=== PATIENT | female | born 1955 | race Hispanic/Latino ===

== ENCOUNTER 2017-12-24 16:21 | Inpatient (IN) | payer OTHER ==
[2017-12-24 19:21] LABS: Urine Amorphous Sediment 1+ /HPF (NONE SEEN); Urine Bacteria >50 /HPF (<20); Urine Coarse Granular Casts 0-5 /LPF (NONE SEEN); Urine Culture Reflex Order REFLEXED
[2017-12-24] MEDS ORDERED: ACETAMINOPHEN 500 MG TAB ONE (19:21)
[2017-12-24] MEDS ORDERED: MECLIZINE HCL 12.5 MG TAB ONE (19:21)
[2017-12-24] MEDS ORDERED: NA CHLORIDE 0.9% 1,000 ML ONE (19:21)
[2017-12-24 19:22] LABS: Urine Blood 3+ (NEG); Urine Glucose TRACE (NEG); Urine Protein 3+ (NEG); Urine Specific Gravity 1.025 (1.005-1.030)
[2017-12-24] MEDS ORDERED: CEFTRIAXONE/SWI 1gm 1 GM/10 ML SYR ONE (19:22)
[2017-12-24 19:34] LABS: Absolute Lymphocytes (CBC) 1.9 K/uL (0.7-4.9); Absolute Neutrophil 6.7 K/uL (1.8-8.0); Basophils % 0.5 % (0-1.3); Eosinophils % 0.5 % (0-4.4); Hematocrit 32.7 % (36.0-45.0); Lymphocytes % 19.2 % (15.3-44.8); MCH 32.1 pg (27.0-35.0); MCV 91.3 fL (80-100); MPV 7.8 fL (7.6-11.3); RBC Red Blood Cell Count 3.58 M/uL (3.86-4.86)
[2017-12-24 19:41] LABS: Potassium 3.7 mEq/L (3.6-5.0)
[2017-12-24 19:48] LABS: Albumin 3.9 g/dL (3.2-5.5); Bilirubin Direct 0.5 mg/dL (0-0.2); Bilirubin Total 3.2 mg/dL (0.3-1.2); Protein, Total 7.5 g/dL (6.0-8.3)
[2017-12-24 20:07] LABS: Platelet Estimate DECR; Urine White Blood Cell Casts OK
[2017-12-24 20:08] LABS: Blood Morphology Comment NOT SEEN (NOT SEEN)
[2017-12-24 20:21] LABS: Thyroid Stimulating Hormone 1.18 uIU/mL (0.34-5.60)
--- NOTE | 2017-12-24 20:33 | RAD REPORT ---
EXAM DESCRIPTION: CT - Head Brain Wo Cont - 12/24/2017 8:22 pm CLINICAL HISTORY: Progressive dizziness, congestion, headache, thrombocytopenia COMPARISON: None. TECHNIQUE: Axial 5 mm thick images of the head were obtained without IV contrast. All CT scans are performed using dose optimization technique as appropriate and may include automated exposure control or mA/KV adjustment according to patient size. FINDINGS: No intracranial hemorrhage is present. There is no mass effect, edema or shift of midline structures. No acute cortical based infarction. Mild atrophy and chronic ischemic changes are present . Vascular and physiologic calcifications are present. No abnormal extra-axial fluid collections. Preet tricles are in proportion to any volume loss. Mastoid air cells and visualized portions of the paranasal sinuses are clear. No acute bony findings. IMPRESSION: No hemorrhage or acute intracranial finding. Mild atrophy chronic ischemic change.
--- NOTE | 2017-12-24 23:56 | EDPHYS ---
Physician Documentation [facility] Name: Selina Toussaint Age: 62 yrs Sex: Female : 1955 Arrival Date: 12/24/2017 Time: 16:22 Bed 16 Private MD: ED Physician Jayden Callejas HPI: 12/24 19:56 This 62 yrs old Female presents to ER via Wheelchair with complaints of snw Dizziness, Fever. 19:56 The patient presents with lightheadedness. Onset: The symptoms/episode began/occurred snw suddenly, this morning. Context: occurred at home, occurred while the patient was getting up from bed, just prior to the episode the patient experienced no apparent symptoms. Modifying factors: The symptoms are alleviated by nothing. Associated signs and symptoms: Pertinent positives: fever. Severity of symptoms: At their worst the symptoms were moderate. Patient's baseline: Neuro: alert and fully oriented. It is unknown whether or not the patient has had similar symptoms in the past. The patient has not recently seen a physician. Historical: - Allergies: 16:39 Vicodin; aj - Home Meds: 16:39 Aspirin Oral [Active]; atorvastatin Oral [Active]; Glimepiride Oral [Active]; aj lisinopril Oral [Active]; Meclizine Oral [Active]; Metformin Oral [Active]; Simvastatin Oral [Active]; - PMHx: 16:39 Diabetes - NIDDM; Hypertension; vertigo; Hyperlipidemia; aj - PSHx: 16:39 left arm; carotid artery; aj - Immunization history:: Adult Immunizations up to date. - Social history:: Smoking status: Patient uses tobacco products, smokes one-half pack cigarettes per day. ROS: 19:55 Constitutional: Negative for chills, and weight loss, + fever Eyes: Negative for snw injury, pain, redness, and discharge, ENT: Negative for injury, pain, and discharge, Neck: Negative for injury, pain, and swelling, Cardiovascular: Negative for chest pain, palpitations, and edema, Respiratory: Negative for shortness of breath, cough, wheezing, and pleuritic chest pain, Abdomen/GI: Negative for abdominal pain, nausea, vomiting, diarrhea, and constipation, Back: Negative for injury and pain, : Negative for injury, bleeding, discharge, and swelling, MS/Extremity: Negative for injury and deformity, Skin: Negative for injury, rash, and discoloration. 19:55 Neuro: Positive for dizziness. Exam: 19:54 Constitutional: This is a well developed, well nourished patient who is awake, alert, snw and in no acute distress. Head/Face: Normocephalic, atraumatic. 19:54 ENT: Nares patent. No nasal discharge, no septal abnormalities noted. Tympanic membranes are normal and external auditory canals are clear. Oropharynx with no redness, swelling, or masses, exudates, or evidence of obstruction, uvula midline. Mucous membranes moist. Neck: Trachea midline, no thyromegaly or masses palpated, and no cervical lymphadenopathy. Supple, full range of motion without nuchal rigidity, or vertebral point tenderness. No Meningismus. Chest/axilla: Normal chest wall appearance and motion. Nontender with no deformity. No lesions are appreciated. Cardiovascular: Regular rate and rhythm with a normal S1 and S2. No gallops, murmurs, or rubs. Normal PMI, no JVD. No pulse deficits. Respiratory: Lungs have equal breath sounds bilaterally, clear to auscultation and percussion. No rales, rhonchi or wheezes noted. No increased work of breathing, no retractions or nasal flaring. Abdomen/GI: Soft, non-tender, with normal bowel sounds. No distension or tympany. No guarding or rebound. No evidence of tenderness throughout. Back: No spinal tenderness. No costovertebral tenderness. Full range of motion. MS/ Extremity: Pulses equal, no cyanosis. Neurovascular intact. Full, normal range of motion. 19:54 Eyes: Sclera: icterus, is present. 19:54 Skin: Appearance: Color: pale, Temperature: normal temperature. 19:54 Neuro: Orientation: is normal, Mentation: is normal, Memory: is normal, Motor: is normal, Gait: is unsteady, seizure activity, is not displayed by the patient. Vital Signs: 16:39 BP 130 / 67; Pulse 110; Resp 20; Temp 97.8; Pulse Ox 98% on R/A; Weight 54.43 kg; aj Height 5 ft. 1 in. (154.94 cm); Pain 9/10; 19:17 BP 156 / 71; Pulse 85; Resp 16; Temp 100.8(O); Pulse Ox 99% on R/A; Pain 6/10; ao 21:45 BP 138 / 72; Pulse 78; Resp 15; Pulse Ox 98% on R/A; ao 23:23 BP 146 / 68; Pulse 89; Resp 16; Pulse Ox 96% on R/A; Pain 0/10; ao 12/25 00:39 BP 124 / 67; Pulse 76; Resp 16; Temp 99.4(O); Pulse Ox 100% ; Pain 0/10; ao 12/24 16:39 Body Mass Index 22.67 (54.43 kg, 154.94 cm) aj MDM: 12/24 17:37 Patient medically screened. snw 20:30 Physician consultation: Keely Law MD was called at 20:30, was contacted at 20:30, snw regarding admission, would like consultation with Hematology (Dr. Bedolla). 20:47 Data reviewed: vital signs, nurses notes. Data interpreted: Pulse oximetry: on room air snw is 99 %. Interpretation: normal. Counseling: I had a detailed discussion with the patient and/or guardian regarding: the historical points, exam findings, and any diagnostic results supporting the discharge/admit diagnosis, the presence of at least one elevated blood pressure reading (>120/80) during this emergency department visit, lab results, radiology results, the need for further work-up and treatment in the hospital. 22:55 Physician consultation: Elizabeth Carvalho MD was called at 22:56, was contacted at snw 22:56, regarding consult, patient's condition, would like medications started, Antibiotics (given in ED), repeat CBC in am. If decrease in platelets will start pt on steroids.. ED course: Pt CT returned. Feeling better. No new complaints. . 22:57 Physician consultation: Keely Law MD was called at 22:57, was contacted at 22:57, snw and will see patient in ED, shortly. 12/24 17:17 Order name: Urine Culture sn 12/24 17:17 Order name: Urine Microscopic Only; Complete Time: 19:27 snw 12/24 18:34 Order name: CBC with Diff snw 12/24 18:34 Order name: Chem 7; Complete Time: 20:23 snw 12/24 18:34 Order name: TS snw 12/24 18:34 Order name: TSH; Complete Time: 20:23 snw 12/24 18:34 Order name: LFT's; Complete Time: 20:23 snw 12/24 18:34 Order name: Procalcitonin; Complete Time: 20:16 snw 12/24 18:34 Order name: Blood Culture Adult (2) snw 12/24 18:34 Order name: AMMONIA; Complete Time: 19:48 snw 12/24 18:35 Order name: CBC with Automated Diff; Complete Time: 20:16 EDMS 12/24 18:36 Order name: Urine Dipstick--Ancillary (enter results); Complete Time: 19:27 mw2 12/24 20:04 Order name: CT Head Brain wo Cont; Complete Time: 20:46 snw 12/24 20:05 Order name: CBC Smear Scan; Complete Time: 20:16 EDMS 12/24 17:17 Order name: Urine Dipstick-Ancillary (obtain specimen); Complete Time: 19:02 snw 12/24 17:18 Order name: FSBS; Complete Time: 18:33 snw 12/24 20:04 Order name: CT Abd/Pelvis - W/Contrast snw Administered Medications: 19:29 Drug: NS 0.9% 1000 ml Route: IV; Rate: 1 bolus; Site: right antecubital; ao 21:00 Follow up: IV Status: Completed infusion; IV Intake: 1000ml ao 19:29 Drug: Meclizine 50 mg Route: PO; ao 21:00 Follow up: Response: No adverse reaction ao 19:29 Drug: Tylenol 500 mg Route: PO; ao 22:00 Follow up: Response: No adverse reaction; Temperature is decreased ao 20:44 Drug: Rocephin 1 grams Route: IV; Rate: calculated rate; Site: left antecubital; ao 12/25 04:31 Follow up: IV Status: Completed infusion; IV Intake: 10ml ao Point of Care Testing: Blood Glucose: 12/24 18:05 Blood Glucose: 204 mg/dL; dh3 Ranges: Critical Glucose Levels:Adult <50 mg/dl or >400 mg/dl <40 mg/dl or >180 mg/dl Disposition: 12/25 15:39 Co-signature as Attending Physician, Jayden Callejas MD I agree with the assessment and wa plan of care. Disposition: 12/24/17 23:55 Hospitalization ordered by Keely Law for Inpatient Admission. Preliminary diagnosis are Urinary tract infection, site not specified, Thrombocytopenia, unspecified. - Bed requested for Telemetry/MedSurg (Inpatient). - Status is Inpatient Admission. ao - Condition is Stable. - Problem is an acute exacerbation. - Symptoms are unchanged. UTI on Admission? Yes Signatures: Dispatcher [employer] EDMS Emma Gayle RN RN mw Myers, Amanda, RN RN aj Therrien, Shelly, WIRE TWISTING MACHINE OPERATOR-C WIRE TWISTING MACHINE OPERATOR-Csnw Sarmad Saenz RN RN ao AppiahJayden MD MD wa
--- NOTE | 2017-12-24 23:56 | ER ---
Nurse's Notes [facility] Name: Selina Toussaint Age: 62 yrs Sex: Female : 1955 Arrival Date: 12/24/2017 Time: 16:22 Bed 16 Private MD: Diagnosis: Urinary tract infection, site not specified;Thrombocytopenia, unspecified Presentation: 12/24 16:36 Presenting complaint: Patient states: Reports dizziness that started this morning upon aj waking and is worse when standing, with nasal congestion and sore throat. Patient also reports that her "sciatic" pain is still bothering her and she would like that addressed. Transition of care: patient was not received from another setting of care. Onset of symptoms was December 23, 2017. Care prior to arrival: None. 16:36 Method Of Arrival: Wheelchair aj 16:36 Acuity: TAYE 4 aj Triage Assessment: 16:39 General: Appears in no apparent distress. comfortable, Behavior is calm, cooperative, aj appropriate for age. Pain: Complains of pain in coccyx, left lower back and right lower back Pain currently is 9 out of 10 on a pain scale. Neuro: Level of Consciousness is awake, alert, obeys commands, Oriented to person, place, time, situation, Reports dizziness. Respiratory: Airway is patent Respiratory effort is even, unlabored, Respiratory pattern is regular, symmetrical. Derm: Skin is intact, is healthy with good turgor, Skin is pink, warm \\T\\ dry. normal. Historical: - Allergies: 16:39 Vicodin; aj - Home Meds: 16:39 Aspirin Oral [Active]; atorvastatin Oral [Active]; Glimepiride Oral [Active]; aj lisinopril Oral [Active]; Meclizine Oral [Active]; Metformin Oral [Active]; Simvastatin Oral [Active]; - PMHx: 16:39 Diabetes - NIDDM; Hypertension; vertigo; Hyperlipidemia; aj - PSHx: 16:39 left arm; carotid artery; aj - Immunization history:: Adult Immunizations up to date. - Social history:: Smoking status: Patient uses tobacco products, smokes one-half pack cigarettes per day. Screenin:33 Abuse screen: Denies threats or abuse. Denies injuries from another. Nutritional sv screening: No deficits noted. Tuberculosis screening: No symptoms or risk factors identified. Fall Risk None identified. Assessment: 18:20 General: Appears in no apparent distress. comfortable, Behavior is calm, cooperative, sv appropriate for age. General: Reports fever. Pain: Denies pain. Neuro: Level of Consciousness is awake, alert, obeys commands, Oriented to person, place, time, situation, Moves all extremities. Full function. Neuro: Reports dizziness. Respiratory: Respiratory effort is even, unlabored, Respiratory pattern is regular, symmetrical. Derm: Skin is normal. 19:12 General: Appears in no apparent distress. comfortable, Behavior is calm, cooperative, ao appropriate for age. Pain: Complains of pain in buttocks Pain currently is 6 out of 10 on a pain scale. Neuro: Level of Consciousness is awake, alert, obeys commands, Oriented to person, place, time, situation, Appropriate for age. Cardiovascular: Heart tones S1 S2. Respiratory: Airway is patent Respiratory effort is even, unlabored, Respiratory pattern is regular, symmetrical. GI: Abdomen is non-distended, Bowel sounds present X 4 quads. : No signs and/or symptoms were reported regarding the genitourinary system. EENT: No signs and/or symptoms were reported regarding the EENT system. Derm: Skin is intact, Skin temperature is warm. Musculoskeletal: Range of motion:. 20:44 Reassessment: Patient appears in no apparent distress at this time. Patient and/or ao family updated on plan of care and expected duration. Pain level reassessed. Patient is alert, oriented x 3, equal unlabored respirations, skin warm/dry/pink. 21:13 Reassessment: Patient done with contrast at 2043. CT has been notified. ao 21:45 Reassessment: Patient appears in no apparent distress at this time. Patient and/or ao family updated on plan of care and expected duration. Pain level reassessed. Patient is alert, oriented x 3, equal unlabored respirations, skin warm/dry/pink. 23:23 Reassessment: Patient appears in no apparent distress at this time. Patient and/or ao family updated on plan of care and expected duration. Pain level reassessed. Patient is alert, oriented x 3, equal unlabored respirations, skin warm/dry/pink. Waiting on Dr Law to see patient and for patient to get admitted to the hospital as requested by SIMBA Barboza. Vital Signs: 16:39 BP 130 / 67; Pulse 110; Resp 20; Temp 97.8; Pulse Ox 98% on R/A; Weight 54.43 kg; aj Height 5 ft. 1 in. (154.94 cm); Pain 9/10; 19:17 BP 156 / 71; Pulse 85; Resp 16; Temp 100.8(O); Pulse Ox 99% on R/A; Pain 6/10; ao 21:45 BP 138 / 72; Pulse 78; Resp 15; Pulse Ox 98% on R/A; ao 23:23 BP 146 / 68; Pulse 89; Resp 16; Pulse Ox 96% on R/A; Pain 0/10; ao 12/25 00:39 BP 124 / 67; Pulse 76; Resp 16; Temp 99.4(O); Pulse Ox 100% ; Pain 0/10; ao 12/24 16:39 Body Mass Index 22.67 (54.43 kg, 154.94 cm) aj ED Course: 12/24 16:22 Patient arrived in ED. as 16:38 Triage completed. aj 16:39 Arm band placed on left wrist. Patient placed in waiting room, Patient notified of wait aj time. 17:17 Zulema Barboza FNP-C is PHCP. snw 17:17 Jayden Callejas MD is Attending Physician. snw 17:40 Rosa Garcia, RN is Primary Nurse. sv 18:33 Patient has correct armband on for positive identification. Bed in low position. Adult sv w/ patient. Door closed. Head of bed elevated. 19:09 Initial lab(s) drawn, by hi, sent to lab. First set of blood cultures drawn by hi, T\\T\\S dh3 collected, blood band applied to patient. Inserted saline lock: 22 gauge in right antecubital area, using aseptic technique. Blood collected. 19:13 Report given to Sarmad GARCIA. sv 19:16 Primary Nurse role handed off by Rosa Garcia RN sv 19:28 Sarmad Saenz, RN is Primary Nurse. ao 20:07 Notified Nurse Practitioner and/or Physician Slasher Runner of a critical lab result(s), lp1 Platelets 14. 20:22 CT Head Brain wo Cont In Process Unspecified. EDMS 21:[address] vm2 22:13 CT Abd/Pelvis - W/Contrast In Process Unspecified. EDMS 22:13 CT completed. Patient tolerated procedure well. Patient moved back from CT. 2 23:54 Keely Law MD is Hospitalizing Provider. snw 12/25 00:44 No provider procedures requiring assistance completed. Patient admitted, IV remains in ao place. Administered Medications: 12/24 19:29 Drug: NS 0.9% 1000 ml Route: IV; Rate: 1 bolus; Site: right antecubital; ao 21:00 Follow up: IV Status: Completed infusion; IV Intake: 1000ml ao 19: Drug: Meclizine 50 mg Route: PO; ao 21:00 Follow up: Response: No adverse reaction ao 19: Drug: Tylenol 500 mg Route: PO; ao 22:00 Follow up: Response: No adverse reaction; Temperature is decreased ao 20:44 Drug: Rocephin 1 grams Route: IV; Rate: calculated rate; Site: left antecubital; ao 12/25 04:31 Follow up: IV Status: Completed infusion; IV Intake: 10ml ao Point of Care Testing: Blood Glucose: 12/24 18:05 Blood Glucose: 204 mg/dL; dh3 Ranges: Intake: 21:00 IV: 1000ml; Total: 1000ml. ao 12/25 04:31 IV: 10ml; Total: 1010ml. ao Outcome: 12/24 23:55 Decision to Hospitalize by Provider. snw 12/25 00:45 Condition: stable ao Instructed on the need for admit. 01:03 Admitted to Tele accompanied by tech, room 419, Report called to RADHA Hale ao 01:06 Patient left the ED. ao Signatures: Dispatcher [employer] EDID Rosa Garcia RN Lorena Rivera RN Zulema Leigh, CERTIFIED REAL ESTATE APPRAISER-C CERTIFIED REAL ESTATE APPRAISER-Shahbazw Vianey Ely Laura, RN RN lp1 Ortiz, Alex RN Harleen Mims [facility] Nora Hoffman 3
[2017-12-25] MEDS ORDERED: MORPHINE 2 MG/ML SYR IV PRN (00:09)
[2017-12-25] MEDS ORDERED: ONDANSETRON 4 MG/2 ML VIAL IV PRN (00:09)
[2017-12-25] MEDS ORDERED: ACETAMINOPHEN 500 MG TAB PO PRN (00:09)
[2017-12-25] MEDS ORDERED: MECLIZINE HCL 12.5 MG TAB PO PRN (00:12)
[2017-12-25] MEDS: NA CHLORIDE 0.9% 1,000 ML IV SCH ×3 (01:00→20:07)
[2017-12-25 01:20] VITALS: O2SAT 100
[2017-12-25 01:26] VITALS: BMI 22.6
[2017-12-25 03:14] LABS: Absolute Lymphocytes (CBC) 1.4 K/uL (0.7-4.9); Absolute Monocytes 0.8 K/uL (0.1-1.3); Absolute Neutrophil 5.6 K/uL (1.8-8.0); Basophils % 0.7 % (0-1.3); Eosinophils % 0.4 % (0-4.4); Hematocrit 31.9 % (36.0-45.0); Lymphocytes % 17.5 % (15.3-44.8); MCH 31.4 pg (27.0-35.0); MCV 91.1 fL (80-100); MPV 12.6 fL (7.6-11.3); Monocytes % 9.9 % (3.3-12.3)
[2017-12-25 03:50] LABS: Blood Morphology Comment NOT SEEN (NOT SEEN); Platelet Estimate DECR; Urine White Blood Cell Casts OK
[2017-12-25] MEDS: GUAIFENESIN/CODEINE 5ML UCUP PO PRN (03:54)
[2017-12-25] MEDS: METHYLPREDNISOLONE 125 MG INJ IV SCH ×2 (05:05→11:58)
--- NOTE | 2017-12-25 06:29 | P.HP ---
Certification for Inpatient Patient admitted to: Inpatient With expected LOS: >2 Midnights Patient will require the following post-hospital care: None Practitioner: I am a practitioner with admitting privileges, knowledge of patient current condition, hospital course, and medical plan of care. Services: Services provided to patient in accordance with Admission requirements found in Title 42 Section 412.3 of the Code of Federal Regulations Patient History Date of Service: 12/24/17 Reason for admission: ITP/UTI History of Present Illness: Patient is a 62yo who was admitted to the hospital with dizziness and urinary tract infection. Patient has also been having some generalized weakness. Patient came into the ER for evaluation. In the emergency room patient had a CT of her head which was negative. She also had a CT of her chest abdomen and pelvis which revealed perinephric stranding. Spoke with Hematology and they recommended antibiotic therapy initially. Will recheck platelet count in the morning and reassess at that time. Patient was seen a few years ago in the hospital by Dr. Kennedy. 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 Patient was started on steroids. Patient never followed up as an outpatient. She denies having any bleeding issues. She denies any petechial rashes. She will be admitted for further evaluation. Allergies hydrocodone bitartrate [From Vicodin] Allergy (Verified 12/25/17 03:50) ants crawling on her Home Medications: Aspirin [Aspirin EC 81 MG] 81 mg PO DAILY 07/17/17 Atorvastatin Calcium [Lipitor*] 10 mg PO DAILY #30 tab 07/18/17 Lisinopril [Prinivil*] 5 mg PO DAILY #30 tab 07/18/17 Meclizine HCl [Antivert*] 25 mg PO Q6H PRN #30 tab 07/18/17 Glimepiride 2 mg PO DAILY 12/25/17 Metformin HCl [Glucophage*] 1,000 mg PO BID 12/25/17 - Past Medical/Surgical History Has patient received pneumonia vaccine in the past: No Diabetic: Yes -: HTN -: NIDDM -: CVA with right-sided residual weakness -: Carotid artery disease status post endarterectomy -: Hyperlipidemia -: Vertigo -: left arm surgery -: Left CEA - Family History Father Medical History: Heart disease Sister Medical History: Heart disease Brother Medical History: Heart disease Mother Medical History: Heart disease, Diabetes - Social History Smoking Status: Light Tobacco smoker (1-9 cigarettes/day) Alcohol use: Yes CD- Drugs: No Caffeine use: Yes Place of Residence: Home Review of Systems 10-point ROS is otherwise unremarkable Physical Examination - Vital Signs Temperature: 98.6 F Blood Pressure: 168/73 Pulse: 94 Respirations: 20 Pulse Ox (%): 98 - Physical Exam General: Alert, In no apparent distress, Oriented x3 HEENT: Atraumatic, PERRLA, Mucous membr. moist/pink, EOMI, Sclerae nonicteric Neck: Supple, 2+ carotid pulse no bruit, No LAD, Without JVD or thyroid abnormality Respiratory: Clear to auscultation bilaterally, Normal air movement Cardiovascular: Regular rate/rhythm, Normal S1 S2, No murmurs Gastrointestinal: Normal bowel sounds, Soft and benign, Non-distended, No tenderness Musculoskeletal: No clubbing, No swelling, No tenderness Integumentary: No rashes Neurological: Normal speech, Normal tone, Sensation intact, Cranial nerves 3-12 intact, Normal affect, Abnormal gait, Abnormal strength Lymphatics: No axilla or inguinal lymphadenopathy - Studies Laboratory Data (last 24 hrs) 12/24/17 19:10: Sodium 129 L, Potassium 3.7, BUN 23 H, Creatinine 0.96, Glucose 198 H, Total Bilirubin 3.2 H, AST 42, ALT 20, Alkaline Phosphatase 87 12/24/17 19:10: WBC 9.6, Hgb 11.5 L, Hct 32.7 L, Plt Count 14 L* Assessment & Plan - Problems (Diagnosis) (1) Thrombocytopenia Current Visit: Yes Status: Acute (2) Pyelonephritis Current Visit: Yes Status: Acute (3) Vertigo Current Visit: Yes Status: Acute - Plan Plan: 1. Hematology recommended starting IV antibiotics and rechecking platelet count. If platelet count decreases in the morning, I will go ahead and initiate IV steroids. Patient with no signs of bleeding and only noticed 1-2 petechiae lesions. At this time, patient has no bleeding and hemoglobin is stable, so no need for transfusion. Will continue to monitor along with platelet count. Hold all anti-platelet agents and also will hold NSAIDs. 2. Urology consultation for questionable pyelonephritis. Continue with antibiotics. 3. Meclizine for her vertigo. If it does not improve-ENT/neurology consultation 4. GI and DVT prophylaxis Discharge Plan: Home Plan to discharge in: Greater than 2 days - Advance Directives Does patient have a Living Will: No Does patient have a Durable POA for Healthcare: No - Code Status/Comfort Care Code Status Assessed: Yes Code Status: Full Code Critical Care: No Time Spent Managing PTS Care (In Minutes): 50
[2017-12-25] MEDS ORDERED: D50W 25 GM/50 ML SYRINGE IV PRN ×2 (07:13→21:50)
[2017-12-25] MEDS ORDERED: GLUCAGON 1 MG/VIAL IM PRN ×2 (07:13→21:50)
[2017-12-25 07:15] LABS: Absolute Lymphocytes (CBC) 0.9 K/uL (0.7-4.9); Absolute Monocytes 0.4 K/uL (0.1-1.3); Basophils % 0.6 % (0-1.3); Eosinophils % 0.4 % (0-4.4); Hematocrit 30.1 % (36.0-45.0); Lymphocytes % 12.2 % (15.3-44.8); MCH 31.5 pg (27.0-35.0); MCV 91.3 fL (80-100); MPV 10.9 fL (7.6-11.3)
[2017-12-25] MEDS ORDERED: MORPHINE 4 MG/ML SYR IV PRN (07:45)
[2017-12-25 07:56] LABS: Albumin 3.1 g/dL (3.2-5.5); Potassium 3.9 mEq/L (3.6-5.0); Protein, Total 6.1 g/dL (6.0-8.3)
[2017-12-25] MEDS ORDERED: PNEUMOCOCCAL VACCINE 0.5 ML IMVAC ONE (08:00)
--- NOTE | 2017-12-25 08:09 | RAD REPORT ---
EXAM DESCRIPTION: CT - Abdomen Pelvis W Contrast - 12/25/2017 6:40 am CLINICAL HISTORY: Abdominal pain. A preliminary written report was provided at the time of the study, and the report was reviewed prio r to final dictation. COMPARISON: CT January 2014 TECHNIQUE: Biphasic, helical CT imaging of the abdomen and pelvis was performed following 100 ml non -ionic IV contrast. Oral contrast was given. All CT scans are performed using dose optimization technique as appropriate and may include automated exposure control or mA/KV adjustment according to patient size. FINDINGS: No acute lung base finding. Patient has a small pericardial effusion that has improved sig nificantly from 2014. The liver, spleen, and pancreas show no suspicious findings. Liver attenuation is borderline fatty in filtrated. No gallbladder or biliary tree acute finding. Gallstones can be occult. Symmetric renal function is seen with no hydronephrosis or suspicious renal mass. No pyelonephritis f indings. There is no delayed or asymmetric renal function. Patient has significant perinephric strand ing. This is a symmetric pattern but is new from 2014. In the absence of any focal lung parenchymal p rocess or asymmetric function this is not likely clinically significant. Partially filled urinary jose roberto dder shows no wall thickening, mass or enhancement. No stomach or small bowel acute finding. Retrocecal appendix shows no acute finding. Trace amount of stranding seen near the appendix is similar to the prior study. Active process not suspected. No free air, free fluid or pneumatosis. No focal inflammatory stranding identifiable. No hernia, mas s or bulky lymphadenopathy. No adrenal abnormality. Approximately 12 millimeter left periaortic lymp h node has not change from 2014. Disc and bony degenerative changes are present. No acute or pathologic bone process seen. Remodeling at the right sacral ala present presumably from old trauma. This is similar to 2014. Advanced lower l umbar facet joint degenerative changes are present. Patient has atherosclerotic calcifications withou t acute vascular finding. IMPRESSION: No obstruction, free air or surgically emergent finding. No acute GI process seen. No gallbladder or biliary tree process seen. Patient has a significant perinephric stranding pattern. This is probably normal for the patient. The re is no pyelonephritis, hydronephrosis, asymmetric function or other acute finding.
--- NOTE | 2017-12-25 08:31 | P.PN ---
Subjective Date of Service: 12/25/17 Primary Care Provider: none Chief Complaint: ITP/UTI Subjective: Improving (Patient feeling better. No bleeding noted.) Physical Examination - Vital Signs Temperature: 98.6 F Blood Pressure: 168/73 Pulse: 94 Respirations: 20 Pulse Ox (%): 98 - Physical Exam General: Alert, In no apparent distress, Oriented x3, Cooperative HEENT: Atraumatic Neck: Supple Respiratory: Clear to auscultation bilaterally, Normal air movement Cardiovascular: Normal pulses, Regular rate/rhythm Gastrointestinal: Normal bowel sounds, Soft and benign, Non-distended, No tenderness, No masses, No rebound, No guarding Musculoskeletal: No erythema, No tenderness, No warmth Integumentary: No tenderness/swelling, No erythema, No warmth, No cyanosis, Other (Mild bruising to the extremities) Neurological: Normal speech, Normal strength at 5/5 x4 extr, Normal tone, Normal affect - Studies Laboratory Data (last 24 hrs) 12/24/17 19:10: Sodium 129 L, Potassium 3.7, BUN 23 H, Creatinine 0.96, Glucose 198 H, Total Bilirubin 3.2 H, AST 42, ALT 20, Alkaline Phosphatase 87 12/24/17 19:10: WBC 9.6, Hgb 11.5 L, Hct 32.7 L, Plt Count 14 L* Medications List Reviewed: Yes Assessment & Plan - Problems (Diagnosis) (1) Abnormal CT of the abdomen Current Visit: Yes Status: Acute Plan: Perinephric stranding noted on CT scan. This is likely normal for the patient. No pyelonephritis or hydronephrosis noted. Patient with UTI and thrombocytopenia. Will continue with IV antibiotic therapy. Urine culture pending. Will continue with IV fluids. Patient will receive 1 unit of platelets. Hematology consulted to address her chronic ATP. Patient on IV steroids for this. Urology consulted to evaluate the perinephric stranding. Await recommendations from both. (2) Diabetes mellitus Current Visit: Yes Status: Chronic Plan: Will check A1c. Will continue with metformin. Will provide sliding scale. Qualifiers: Diabetes mellitus type: type 2 Diabetes mellitus senior care insulin use: without senior care use Diabetes mellitus complication status: with other specified complication Qualified Code(s): E11.69 - Type 2 diabetes mellitus with other specified complication (3) Hyperlipidemia Current Visit: Yes Status: Chronic Plan: Will continue with her medication. Qualifiers: Hyperlipidemia type: unspecified Qualified Code(s): E78.5 - Hyperlipidemia , unspecified (4) Anemia Current Visit: Yes Status: Chronic Plan: This is likely from anemia of chronic disease. Will check iron and B12 studies. Will monitor closely. No active bleeding noted. Qualifiers: Anemia type: other cause Other causes of anemia: chronic disease, other Qualified Code(s): D63.8 - Anemia in other chronic diseases classified elsewhere (5) Hyponatremia Current Visit: Yes Status: Acute Plan: This is likely from hypovolemia. Will continue with IV fluids. (6) Dehydration Current Visit: Yes Status: Acute (7) Thrombocytopenia Current Visit: Yes Status: Chronic Plan: Patient has a history of ITP. This has improved with IV steroids. Will continue with IV steroids. Await recommendation from Hematology. Patient had been on steroids in the past but never followed up. Patient will likely need oral steroids at discharge. Platelet count low. This was repeated. Will provide 1 unit of platelet and recheck later today. (8) Vertigo Current Visit: Yes Status: Acute Plan: This is likely related to her UTI, hyponatremia and anemia. Will continue with above plan of care. (9) Hypertension Current Visit: No Status: Chronic Plan: Will restart home medication and adjust appropriately. Qualifiers: Hypertension type: essential hypertension Qualified Code(s): I10 - Essential (primary) hypertension (10) UTI (urinary tract infection) Current Visit: No Status: Acute Plan: Will continue with IV antibiotic therapy. Urine culture obtained. Qualifiers: Urinary tract infection type: acute cystitis Hematuria presence: without hematuria Qualified Code(s): N30.00 - Acute cystitis without hematuria (11) Chronic ITP (idiopathic thrombocytopenia) Current Visit: Yes Status: Chronic Plan: Patient with history of chronic ITP. Platelet count repeated. Will provide platelet transfusion. Hematology consulted. Patient on IV steroids. Patient will likely need steroids at discharge. Await further recommendations from hematology Discharge Plan: Home Plan to discharge in: 24 Hours Time Spent Managing Pts Care (In Minutes): 55
[2017-12-25] MEDS ORDERED: GLIMEPIRIDE 2 MG TABLET PO SCH (09:00)
[2017-12-25] MEDS ORDERED: LISINOPRIL 5 MG TAB PO SCH (09:00)
[2017-12-25] MEDS ORDERED: CEFTRIAXONE 1 GM/NS 50 ML 1 GM/50 ML BAG IV SCH (09:00)
[2017-12-25] MEDS: ATORVASTATIN 10 MG TAB PO SCH (09:17)
[2017-12-25] MEDS: ASPIRIN EC 81 MG TAB PO SCH (09:18)
[2017-12-25] MEDS: CEFTRIAXONE/SWI 1gm 1 GM/10 ML SYR IV SCH (09:19)
[2017-12-25] MEDS: INSULIN -REGULAR HUMAN 50 UNIT/0.5 ML ML SQ SCH ×5 (09:23→22:02)
[2017-12-25] MEDS: LISINOPRIL 10 MG TAB PO SCH (09:25)
[2017-12-25 09:55] LABS: A1c Component 1.07 mg/dL; Hemoglobin A1c 11.3 % (4-6.0)
[2017-12-25] MEDS ORDERED: NA CHLORIDE 0.9% 250 ML ONE (12:56)
[2017-12-25] MEDS: DEXAMETHASONE 4 MG TAB PO SCH (15:15)
[2017-12-25] MEDS: INSULIN DETEMIR 100 UNIT/1 ML INSULIN SQ SCH (17:39)
[2017-12-25] MEDS: METFORMIN HCL 500 MG TAB PO SCH (17:40)
[2017-12-25 18:41] LABS: Absolute Lymphocytes (CBC) 1.1 K/uL (0.7-4.9); Absolute Monocytes 0.2 K/uL (0.1-1.3); Absolute Neutrophil 8.1 K/uL (1.8-8.0); Basophils % 0.3 % (0-1.3); Hematocrit 29.8 % (36.0-45.0); Lymphocytes % 11.4 % (15.3-44.8); MCH 31.1 pg (27.0-35.0); MCV 91.8 fL (80-100); MPV 7.8 fL (7.6-11.3); Monocytes % 2.1 % (3.3-12.3); RBC Red Blood Cell Count 3.25 M/uL (3.86-4.86)
--- NOTE | 2017-12-25 19:11 | CON ---
History Of Present Illness: This is a pleasant 62-year-old female, who was brought into the hospital due to dizziness and urinary tract infection. She was found to be thrombocytopenic. Platelets were very low. Also found to have a UTI. Apparently, she has a history of ITP, and was given steroids, but never followed up with her roll wrapper from her last visit. Her CT scan shows some increasing perinephric stranding bilaterally with left worse than the right. The question was if this is a kidney infection or not, and I think that given the picture of UTI and fevers and tenderness in her flank region that is safest to assume most likely pyelonephritis and to treat her as such. Allergies: TO HYDROCODONE, . Home Medication: Aspirin, Lipitor, Prinivil, Antivert, glimepiride, and metformin. Past Medical History: The patient has history of diabetes, hypertension, and [id number] diabetes mellitus, CVA with right-sided residual weakness , s/p coratid artery status post endarterectomy, hyperlipidemia, vertigo , left thumb surgery, CEA. Family History: Father had heart disease. Sister had heart disease. Brother had heart disease. Mother had heart disease and diabetes. Social History: Light tobacco smoker 1 to 9 cigarettes a day. Some alcohol use. No drug use. Some caffeine use. She resides at home. Review of Systems: A 10-point review of systems otherwise unremarkable. She has no lower urinary tract symptomatology usually, just some dysuria a day or two ago. Physical Examination: Vital Signs: Latest vital signs reveal temperature 97, pulse 84, respirations 16, BP 142/63, sats 92%. General: Alert and oriented x3. HEENT: Atraumatic and normocephalic. Neck: Supple. Respiratory: Clear to auscultation bilaterally. Cardiovascular: S1 and S2. Musculoskeletal: No clubbing. Neurologic: Alert and orient x3. Lab Studies: White count 7.3, H and H is 10 and 30, platelet count is 9,000, very low. Chemistry shows sodium 138, potassium 3.9, chloride 101, carbon dioxide 23, BUN 27, creatinine 0.87, GFR 66, glucose 323, AST 52, ALT 19, alkaline phosphatase 79. UA positive for nitrate, positive for esterase. Urine culture pending. Assessment: Most likely bilateral pyelonephritis with urinary tract infection. Urine cultures pending. She has severe thrombocytopenia mostly from idiopathic thrombocytopenic purpura. She is receiving platelets transfusion, fluids, and steroids. We will continue to wait on her urine culture and treat her as a pyelonephritic, possible about 10 to 14 days of antibiotics. ROSALIA/PAMELA Voice ID: [id number] Report ID: [id number] RAKESH
[2017-12-26 05:24] LABS: Absolute Lymphocytes (CBC) 1.7 K/uL (0.7-4.9); Absolute Monocytes 0.5 K/uL (0.1-1.3); Absolute Neutrophil 10.2 K/uL (1.8-8.0); Basophils % 0.1 % (0-1.3); Hematocrit 24.9 % (36.0-45.0); Lymphocytes % 13.5 % (15.3-44.8); MCH 31.5 pg (27.0-35.0); MCV 90.8 fL (80-100); MPV 8.5 fL (7.6-11.3); Magnesium 1.9 mg/dL (1.8-2.5); Monocytes % 4.1 % (3.3-12.3); Potassium 3.5 mEq/L (3.6-5.0); RBC Red Blood Cell Count 2.74 M/uL (3.86-4.86)
[2017-12-26] MEDS: PANTOPRAZOLE 40MG TABLET PO SCH (05:41)
[2017-12-26] MEDS: NA CHLORIDE 0.9% 1,000 ML IV SCH (08:06)
[2017-12-26] MEDS: INSULIN -REGULAR HUMAN 50 UNIT/0.5 ML ML SQ SCH ×4 (08:27→21:16)
[2017-12-26] MEDS: INSULIN DETEMIR 100 UNIT/1 ML INSULIN SQ SCH ×2 (08:28→16:27)
[2017-12-26] MEDS: CEFTRIAXONE/SWI 1gm 1 GM/10 ML SYR IV SCH (08:30)
[2017-12-26] MEDS: METFORMIN HCL 500 MG TAB PO SCH ×2 (08:32→16:29)
[2017-12-26] MEDS: ATORVASTATIN 10 MG TAB PO SCH (08:32)
[2017-12-26] MEDS: LISINOPRIL 10 MG TAB PO SCH (08:32)
[2017-12-26] MEDS: ASPIRIN EC 81 MG TAB PO SCH (08:32)
[2017-12-26] MEDS: DEXAMETHASONE 4 MG TAB PO SCH (08:33)
--- NOTE | 2017-12-26 13:21 | PN ---
Subjective: The patient is looking well, doing well. Objective: Urine culture today showed mixed raphael. Assessment: Status post bile. Plan: Discontinue home on Bactrim 1 p.o. b.i.d. x14 days. Follow up p.r.nRg LINDSEY/PAMELA Voice ID: [id number] Report ID: [id number]
[2017-12-26 14:58] LABS: RBC Red Blood Cell Count 2.9 M/uL (3.86-4.86)
[2017-12-26 15:00] LABS: Albumin 3.4 g/dL (3.2-5.5); Bilirubin Direct 0.2 mg/dL (0-0.2); Bilirubin Total 1.1 mg/dL (0.3-1.2); C-Reactive Protein 94.2 mg/L (<10.0); Protein, Total 6.5 g/dL (6.0-8.3)
--- NOTE | 2017-12-26 15:26 | PN ---
Date of Progress Note: 12/26/2017 Subjective: The patient is seen and examined, chart reviewed, and case discussed with RN. The patie nt states that, she is feeling better. Review of Systems: Negative except as above. Medications: Reviewed. Physical Examination: Vital Signs: Temperature 98.2, heart rate 94, blood pressure 119/92, respirations 18, and O2 95% on room air. General: Awake, alert, oriented x3. No acute distress. Elderly female. CV: S1, S2. No murmurs. Regular rate and rhythm. Pulses present. Respiratory: Moving air well bilaterally. No wheezing. Abdomen: Soft, nontender, nondistended. Positive bowel sounds. Extremities: No clubbing, cyanosis, edema. Neurologic: Nonfocal. Laboratory Data: Sodium 137, potassium 3.5, chloride 105, CO2 26, BUN 31, creatinine 0.81, glucose 3 33, calcium 8.6, and magnesium 1.9. WBC 12.4, H and H 8.6, 24.9, and platelets 49. Assessment And Plan: A 62-year-old female with; 1.Thrombocytopenia. The patient has history of idiopathic thrombocytopenic purpura. We will contin ue with IV steroids. Dexamethasone 40 mg for 4 days. 2.Acute dehydration. Continue with IV fluids, improving. 3.Hyponatremia, improved. Continue to monitor. 4.Anemia, likely from anemia of chronic disease. We will continue to monitor H and H, transfuse as needed. 5.Hyperlipidemia, mixed. Continue home medications. 6.Diabetes mellitus type 2 without long-term use of insulin, uncontrolled. Hemoglobin A1c is greate r than 11%. The patient will need adjustments in long-term insulin. She has been started on Levemir . May need premeal as her blood sugars running in the 400s. 7.Abnormal CT scan of the abdomen. Had some perinephric stranding. No focal pyelonephritis or hydr onephrosis. The patient did have some urinary tract infection. We will continue IV antibiotics. Bl ood culture negative to date. Urology is consulted and recommends Bactrim 14 days b.i.d. 8.Urinary tract infection. Acute cystitis without hematuria. Culture shows no growth to date. Plan: Adjust long-acting insulin at premeal. Likely discharge in a.m. if blood sugar levels are imp roved and platelets continue to be above 10. The patient will need to follow up with Urology and Hem atology as outpatient. /PAMELA Voice ID: [id number] Report ID: [id number]
[2017-12-26] MEDS: INSULIN LISPRO 100 UNIT/1 ML SQ SCH (16:27)
--- NOTE | 2017-12-26 17:48 | CON ---
Date of Consultation: 12/25/2017 Reason For Consultation: Thrombocytopenia. Additional Consulting Physician: Keely Law M.D. History Of Present Illness: Ms. Toussaint is a 62-year-old lady who presented to the emergency room with complaints of fever with chills and sweats that has started the night prior to her presentation to the emergency room. She was diagnosed with urinary tract infection in the ER where it was also noted that her platelet count was 12,000. She denies any history of bleeding, bruising, or petechiae in the past days, weeks, or months. She complains of lack of appetite resulting in 8-pound weight loss and fatigue in the past 2 weeks. She gives a history of thrombocytopenia in 2013 when she was hospitalized. At that time, Dr. Kennedy, my partner, evaluated her and treated her for idiopathic thrombocytopenic purpura (ITP) with prednisone. Her platelet count responded while in the hospital and she was discharged and advised to see him and follow up with him in clinic, which she never did. She says she has had no problems with bleeding blood or required any transfusions since then. She had a platelet count done a couple of months ago which was normal at 400,000+. Review of Systems: She denies any history of chest pain, shortness of breath, or hemoptysis. She does admit to a dry cough which has been present for the past month. There is no history of chest pain or paroxysmal nocturnal dyspnea. She denies any history of nausea, vomiting, or diarrhea. Has not noticed any rectal bleeding or melena. There is no history of headaches, dizziness, diplopia, or seizures or stroke. She does have a history of diabetes mellitus type 2 for which she has not been followed regularly. She says she gets her medications from the clinic in [place]. However, blood sugar readings and A1c were elevated on admission. Home Medications: Include a baby aspirin 81 mg daily, atorvastatin 10 mg p.o. daily, lisinopril 5 mg p.o. daily, metformin 1000 mg p.o. b.i.d., and glimepiride 2 mg p.o. daily. Allergies: HYDROCODONE. Past Medical History: Significant for, 1. ITP. 2. Diabetes mellitus type 2. 3. Hypertension. 4. Hyperlipidemia. Past Surgical History: Significant for a traumatic injury to the left arm, requiring surgery and reconstruction. Social And Family History: Ms. Toussaint is single. She lives with her mother. She has no children. She is 1 of 12 siblings none of whom have thrombocytopenia. She is a nonsmoker. Does not drink alcohol. Physical Examination: General: Revealed no acute distress. General examination reveals mild pallor. No cyanosis or icterus was noted. Vital Signs: Her temperature was 97 Fahrenheit earlier today, pulse 84, respirations 16 per minute, her blood pressure has been mildly elevated at 142/ 63. She is saturating in the low 90s with no significant pain. HEENT: Examination revealed normal oral mucosa with no evidence of petechiae or bleeding. Lymph Node Survey: Revealed no palpable lymphadenopathy in the neck, axilla, or groin. Chest: Revealed bilateral vesicular breath sounds with no rales or rhonchi. Heart: Sounds revealed normal S1, S2 with no gallops or murmurs. Abdomen: Was soft, nontender. Liver and spleen were not palpable. Bowel sounds were present. Neurologic: She is alert and oriented with no acute focal deficits. Extremities: No evidence of edema or clubbing. Laboratory Data: Revealed a white count of 7800, hemoglobin was 11, and hematocrit 31.9, platelet count was 6000 at 3 a.m. this morning. She is scheduled to receive 1 unit of packed cells. Chemistries reveal significantly elevated blood sugars. BUN and creatinine were 27 and 0.87. Total bilirubin was mildly elevated at 3.0. Albumin was low at 3.1. Liver enzymes were unremarkable. Her hemoglobin A1c was 11.3. Imaging Studies: Done in the emergency room revealed a head CT which was unremarkable for any acute findings. CT abdomen and pelvis revealed no hepatosplenomegaly or focal lesions in the liver. There was significant perinephric stranding suggestive of pyelonephritis. The urinalysis in the emergency room revealed 5-10 wbc's with multiple bacteria and 3+ positive blood and positive nitrites. Assessment And Plan: Ms. Toussaint is 62-year-old who presents to the hospital for management of the urinary tract infection and was found to be severely thrombocytopenic. 1. Thrombocytopenia. Given her past history and the rate of sudden decline in her platelet count, my suspicion is that she indeed has had relapse of immune thrombocytopenic purpura(ITP) She obviously responded very well to the steroids she received in the hospital in 2013, and even though there was no followup of platelet count, she obviously did not have any clinical bleeding in the interim for years. She was started today on methylprednisone, I have switched her to dexamethasone 40 mg p.o. daily for 4 days. I believe pulse therapy may be better given her poor compliance and since chronic prednisone therapy should ideally be monitored and tapered slowly. I stressed the need for followup, we discussed the IVP can be a relapsing disease and sudden drop in platelet count could be associated with major and even fatal bleeding. She says she understands and will comply. They have added Protonix 40 mg p.o. daily and will continue on that for at least 2 weeks or as long as she needs to be off steroids. I spoke at length with Dr. Garrido as well, she may be discharged when her platelet count are more than 10, 000 on 2 consecutive days. We will follow up with her in clinic 1 week after discharge for recheck of her platelet count. 2. Anemia. She has a mild normochromic normocytic anemia, which could be due to anemia of chronic disease. Renal function stays below 70 mL/minute. Hence, this could be due to chronic renal disease as well. We will follow up on the anemia in clinic as well. Thank you for asking me to see Ms. Toussaint. Please do not hesitate to call me if you have any other questions or concerns. CALI/PAMELA Voice ID: [id number] Report ID: [id number] RAKESH
[2017-12-27 05:16] LABS: Absolute Monocytes 0.7 K/uL (0.1-1.3); Absolute Neutrophil 13.3 K/uL (1.8-8.0); Basophils % 0.2 % (0-1.3); Hematocrit 22.7 % (36.0-45.0); Lymphocytes % 12.4 % (15.3-44.8); MCH 31.5 pg (27.0-35.0); MCV 92.4 fL (80-100); MPV 11.6 fL (7.6-11.3); Monocytes % 4.1 % (3.3-12.3); RBC Red Blood Cell Count 2.46 M/uL (3.86-4.86)
[2017-12-27 05:47] LABS: BUN Blood Urea Nitrogen 25 mg/dL (6-20); Bicarbonate 25 mEq/L (21-31); Glucose Level 227 mg/dL (65-120); Magnesium 1.8 mg/dL (1.8-2.5); Potassium 3.8 mEq/L (3.6-5.0); Sodium Level 137 mEq/L (135-145)
[2017-12-27] MEDS: PANTOPRAZOLE 40MG TABLET PO SCH (05:53)
[2017-12-27] MEDS: NA CHLORIDE 0.9% 1,000 ML IV SCH (05:54)
[2017-12-27] MEDS: INSULIN -REGULAR HUMAN 50 UNIT/0.5 ML ML SQ SCH ×2 (08:10→12:13)
[2017-12-27] MEDS: INSULIN LISPRO 100 UNIT/1 ML SQ SCH ×2 (08:11→12:12)
[2017-12-27] MEDS: INSULIN DETEMIR 100 UNIT/1 ML INSULIN SQ SCH (08:11)
[2017-12-27] MEDS: METFORMIN HCL 500 MG TAB PO SCH (08:15)
[2017-12-27] MEDS: ASPIRIN EC 81 MG TAB PO SCH (08:16)
[2017-12-27] MEDS: LISINOPRIL 10 MG TAB PO SCH (08:16)
[2017-12-27] MEDS: ATORVASTATIN 10 MG TAB PO SCH (08:17)
[2017-12-27] MEDS: DEXAMETHASONE 4 MG TAB PO SCH (08:18)
[2017-12-27] MEDS: CEFTRIAXONE/SWI 1gm 1 GM/10 ML SYR IV SCH (08:24)
--- NOTE | 2017-12-27 10:22 | P.DS ---
Admission Date: 12/24/17 Discharge Date: 12/27/17 Primary Care Provider: none Disposition: ROUTINE DISCHARGE Discharge Condition: GOOD Reason for Admission: ITP/UTI Consultations: Dr. alcantara and Dr. Gold Brief History of Present Illness: Patient is 62 years of age admitted with a bow cytopenia and possible pyelonephritis Hospital Course: She was seen by the above consultants did well treated with steroids most likely idiopathic immune thrombocytopenic purpura which in addition to mild bilateral pyelonephritis as per urology patient's platelet count improved from 55-98,000 cultures negative urology advise that she go home on 2 weeks of Bactrim mildly anemic At the time of discharge patient was doing well alert oriented responsive cooperative vital signs all stable chest clear abdomen soft extremities no edema she has to go home another 2 days of Decadron 40 mg as for oncology note mildly anemic at discharge Vital Signs/Physical Exam: Temp Pulse Resp BP Pulse Ox 97.2 F 65 18 130/62 96 12/27/17 08:00 12/27/17 08:16 12/27/17 08:00 12/27/17 08:16 12/27/17 08:00 Laboratory Data at Discharge: WBC 16.0 K/uL (4.3-10.9) H D 12/27/17 04:05 Hgb 7.8 g/dL (12.0-15.0) L* 12/27/17 04:05 Hct 22.7 % (36.0-45.0) L 12/27/17 04:05 Plt Count 98 K/uL (152-406) L D 12/27/17 04:05 Sodium 137 mEq/L (135-145) 12/27/17 04:05 Potassium 3.8 mEq/L (3.6-5.0) 12/27/17 04:05 BUN 25 mg/dL (6-20) H 12/27/17 04:05 Creatinine 0.64 mg/dL (0.44-1.00) 12/27/17 04:05 Glucose 227 mg/dL (65-120) H 12/27/17 04:05 Magnesium 1.8 mg/dL (1.8-2.5) 12/27/17 04:05 Total Bilirubin 1.1 mg/dL (0.3-1.2) 12/26/17 14:09 AST 40 IU/L (10-42) 12/26/17 14:09 ALT 25 IU/L (10-60) 12/26/17 14:09 Alkaline Phosphatase 85 IU/L (42-121) 12/26/17 14:09 Home Medications: Aspirin [Aspirin EC 81 MG] 81 mg PO DAILY 07/17/17 Atorvastatin Calcium [Lipitor*] 10 mg PO DAILY #30 tab 07/18/17 Lisinopril [Prinivil*] 5 mg PO DAILY #30 tab 07/18/17 Meclizine HCl [Antivert*] 25 mg PO Q6H PRN #30 tab 07/18/17 Glimepiride 2 mg PO DAILY 12/25/17 Metformin HCl [Glucophage*] 1,000 mg PO BID 12/25/17 Sulfamethoxazole/Trimethoprim [Bactrim Ds Tablet] 1 each PO BID 14 Days #28 tablet 12/26/17 Dexamethasone [Decadron*] 40 mg PO DAILY 2 Days tab 12/27/17 New Medications: Dexamethasone [Decadron*] 40 mg PO DAILY 2 Days tab Sulfamethoxazole/Trimethoprim [Bactrim Ds Tablet] 1 each PO BID 14 Days #28 tablet Patient Discharge Instructions: Patient to follow up with Dr. jenkins Diet: ADA Activity: Ad mariluz
[2017-12-27 11:42] LABS: Hematocrit 25.2 % (36.0-45.0)
[2017-12-27 12:00] VITALS: BP 160/66; TEMP 97.9
[2017-12-27] MEDS: GUAIFENESIN/CODEINE 5ML UCUP PO PRN (12:15)
--- NOTE | 2017-12-27 13:10 | PN ---
Subjective: The patient is feeling well and ready for discharge. Laboratory Data: Her H and H have been dropping over the last few days and it was 10.1 and 29.8, today 7.8 and 22.7. Assessment: Thrombocytopenia status post platelet transfusion. Platelet count much better at 98,000, elevated originally 9_. Plan: Plan is to recheck her H and H and continue her Bactrim for 14 days for presumed pyelonephritis. ROSALIA/PAMELA Voice ID: [id number] Report ID: [id number] RAKESH
[2017-12-27 22:34] LABS: Rheumatoid Factor NEG (NEG)
[2017-12-29 11:30] LABS: HIV 1/2 Antibody Diff Not indicated.; HIV AG/AB 4TH GEN Non-reactive (Non-reactive)
[2017-12-29 20:21] LABS: HBsAG Nonreactive (Nonreactive); Hepatitis A IgM Antibody Nonreactive
== END 2017-12-27 13:49 | disposition home or self-care (01) | DRG 813 ==
LOC: ER 16:21 → ERHOLD 23:56 → 4TH 12-25 00:38
PROVIDERS: ADMIT Hospitalist; ATTEND Internal Medicine Sleep Medicine
DX: D69.3 Immune thrombocytopenic purpura (principal); N10 Acute pyelonephritis; E87.1 Hypo-osmolality and hyponatremia; N30.00 Acute cystitis without hematuria; I10 Essential (primary) hypertension; E11.9 Type 2 diabetes mellitus without complications; E78.5 Hyperlipidemia, unspecified; D69.6 Thrombocytopenia, unspecified; R42 Dizziness and giddiness; D63.1 Anemia in chronic kidney disease; E86.0 Dehydration
CPT/HCPCS: 36415; 70450; 74177; 80048; 80053; 80074; 80076; 81003; 81015; 82140; 82607; 82728; 82962; 83036; 83540; 83615; 83735; 84145; 84443; 84466; 85014; 85018; 85025; 85044; 85652; 86038; 86140; 86225; 86430; 86850; 86900; 86901; 87040; 87086; 87088; 87389; 96361; 96365; 96366; 99285; J0696; J2270; J2930; J7030; P9035; Q9967

== ENCOUNTER 2018-05-31 20:29 | Emergency (ER) | payer OTHER ==
[2018-05-31] MEDS ORDERED: MORPHINE 4 MG/ML SYR ONE (22:50)
[2018-05-31] MEDS ORDERED: ONDANSETRON 4 MG/2 ML VIAL ONE (22:50)
[2018-05-31 23:12] LABS: Absolute Lymphocytes (CBC) 3.7 K/uL (0.7-4.9); Absolute Monocytes 0.6 K/uL (0.1-1.3); Absolute Neutrophil 4.8 K/uL (1.8-8.0); Basophils % 1.1 % (0-1.3); Eosinophils % 3.3 % (0-4.4); Hematocrit 34.7 % (36.0-45.0); Lymphocytes % 38.5 % (15.3-44.8); MCH 32.7 pg (27.0-35.0); MCV 93.5 fL (80-100); MPV 8.3 fL (7.6-11.3); Monocytes % 6.3 % (3.3-12.3); RBC Red Blood Cell Count 3.71 M/uL (3.86-4.86)
[2018-05-31 23:16] LABS: Protime INR 0.93
[2018-05-31 23:28] LABS: ALT/SGPT 26 U/L (12-78); AST/SGOT 18 U/L (15-37); Albumin 3.6 g/dL (3.4-5.0); Alkaline Phosphatase 100 U/L (45-117); BUN Blood Urea Nitrogen 15 mg/dL (7-18); Bicarbonate 26 mmol/L (21-32); Bilirubin Direct 0.1 mg/dL (0-0.2); Bilirubin Total 0.4 mg/dL (0.2-1.0); CKMB Creatine Kinase MB < 1.0 ng/mL (0.3-3.6); Creatine Phosphokinase 63 U/L (26-192); Glucose Level 171 mg/dL (74-106); Magnesium 1.9 mg/dL (1.8-2.4); NT PRO-BNP 63 pg/mL (<125); Potassium 4.1 mmol/L (3.5-5.1); Sodium Level 140 mmol/L (136-145); Troponin (Emerg Dept Use Only) < 0.02 ng/mL (0.0-0.045)
--- NOTE | 2018-05-31 23:52 | ER ---
Nurse's Notes [facility] Name: Selina Toussaint Age: 63 yrs Sex: Female : 1955 Arrival Date: 05/31/2018 Time: 20:30 Bed 15 Private MD: Diagnosis: Radiculopathy, lumbar region;Sciatica, right side Presentation: 05/31 20:50 Presenting complaint: Patient states: Pain to lower back that radiates down right leg, lp1 states diagnosed here with 3 bulging discs; Appt to see pain management on Jun.16 but states pain got severe today; "I felt like my right foot got really cold". Transition of care: patient was not received from another setting of care. Onset of symptoms was May 31, 2018. Risk Assessment: Do you want to hurt yourself or someone else? Patient reports no desire to harm self or others. Initial Sepsis Screen: Does the patient meet any 2 criteria? No. Patient's initial sepsis screen is negative. Does the patient have a suspected source of infection? No. Patient's initial sepsis screen is negative. Care prior to arrival: None. 20:50 Method Of Arrival: Wheelchair lp1 20:50 Acuity: TAYE 3 lp1 Historical: - Allergies: 20:54 Vicodin; lp1 - Home Meds: 20:54 amitriptyline 25 mg Oral tab 1 tab once daily [Active]; Aspirin Oral [Active]; lp1 atorvastatin Oral [Active]; Glimepiride Oral [Active]; lisinopril Oral [Active]; Metformin Oral [Active]; - PMHx: 20:54 Diabetes - NIDDM; Hyperlipidemia; Hypertension; Vertigo; lp1 - PSHx: 20:54 Carotid surgery; Arm surgery; lp1 - Immunization history:: Adult Immunizations up to date. - Social history:: Smoking status: Patient uses tobacco products, denies chronic smoking, but will smoke occasionally. - Ebola Screening: : No symptoms or risks identified at this time. Screenin:29 Abuse screen: Denies threats or abuse. Denies injuries from another. Nutritional kr2 screening: No deficits noted. Tuberculosis screening: No symptoms or risk factors identified. Fall Risk None identified. Assessment: 21:26 General: Appears in no apparent distress. uncomfortable, well groomed, well developed, kr2 well nourished, Behavior is calm, cooperative, appropriate for age. Pain: Complains of pain in right leg Pain radiates to right foot Pain currently is 10 out of 10 on a pain scale. Quality of pain is described as radiating, sharp, shooting, Is continuous, Alleviated by rest, Aggravated by weight bearing. Neuro: Level of Consciousness is awake, alert, obeys commands, Oriented to person, place, time, situation, Appropriate for age. Cardiovascular: Capillary refill < 3 seconds in bilateral toes Patient's skin is warm and dry. Cardiovascular: Pulses are palpable in right dorsalis pedis artery. Respiratory: Airway is patent Respiratory effort is even, unlabored, Respiratory pattern is regular, symmetrical. GI: Abdomen is flat, non-distended. EENT: Oral mucosa is moist. Derm: Skin is intact, is healthy with good turgor, Skin is pink, warm \\T\\ dry. Musculoskeletal: Circulation, motion, and sensation intact. Reports pain in right leg. 22:30 Reassessment: Patient appears in no apparent distress at this time. Patient and/or kr2 family updated on plan of care and expected duration. Pain level reassessed. Patient is alert, oriented x 3, equal unlabored respirations, skin warm/dry/pink. 23:30 Reassessment: Patient appears in no apparent distress at this time. Patient and/or kr2 family updated on plan of care and expected duration. Pain level reassessed. Patient is alert, oriented x 3, equal unlabored respirations, skin warm/dry/pink. Patient denies pain at this time. Patient states feeling better. 06/01 00:33 Reassessment: Patient appears in no apparent distress at this time. Patient and/or kr2 family updated on plan of care and expected duration. Pain level reassessed. Patient is alert, oriented x 3, equal unlabored respirations, skin warm/dry/pink. When getting patient ready for discharge she complained of feeling shaky like her blood glucose might be low. Blood glucose 128. Patient denies pain at this time. Patient states feeling better. Patient states symptoms have improved. Vital Signs: 05/31 20:54 BP 134 / 63; Pulse 88; Resp 16; Temp 97.4(TE); Pulse Ox 99% on R/A; Weight 57.15 kg; lp1 Height 5 ft. 1 in. (154.94 cm); Pain 06/23; 06/01 00:32 BP 136 / 88; Pulse 80; Resp 18; Pulse Ox 100% on R/A; kr2 05/31 20:54 Body Mass Index 23.81 (57.15 kg, 154.94 cm) lp1 ED Course: 05/31 20:30 Patient arrived in ED. es 20:51 Triage completed. lp1 20:54 Arm band placed on right wrist. lp1 21:21 Akash Hernandez MD is Attending Physician. tw4 21:26 Kaia Cullen, RN is Primary Nurse. kr2 21:29 Patient has correct armband on for positive identification. Bed in low position. Call kr2 light in reach. Side rails up X2. Adult w/ patient. Pulse ox on. NIBP on. Door closed. Warm blanket given. Head of bed lowered. 22:45 Inserted saline lock: 20 gauge in right antecubital area, using aseptic technique. kr2 Blood collected. 23:07 Lower Extremity Artery Uni Ltd US In Process Unspecified. EDMS 23:25 EKG done, by ED staff, reviewed by Kaia Cullen RN. kr2 06/01 00:33 No provider procedures requiring assistance completed. IV discontinued, intact, kr2 bleeding controlled, No redness/swelling at site. Pressure dressing applied. Administered Medications: 05/31 22:52 Drug: morphine 4 mg Route: IVP; Site: right antecubital; kr2 23:10 Follow up: Response: No adverse reaction; Pain is decreased kr2 22:53 Drug: Zofran 4 mg Route: IVP; Site: right antecubital; kr2 23:10 Follow up: Response: No adverse reaction; Nausea is decreased kr2 Point of Care Testing: Blood Glucose: 06/01 00:31 Blood Glucose: 128 mg/dL; kr2 Ranges: Outcome: 05/31 23:51 Discharge ordered by . tw4 06/01 00:36 Discharged to home via wheelchair, with family. kr2 Condition: good Discharge instructions given to patient, family, Instructed on discharge instructions, follow up and referral plans. no driving heavy equipment, Demonstrated understanding of instructions, follow-up care, medications, Prescriptions given X 2. 00:39 Patient left the ED. kr2 Signatures: Dispatcher [employer] EDMS Valentina Bar Laura RN RN lp1 Kaia Cullen RN RN kr2 Akash Hernandez MD MD tw4 Corrections: (The following items were deleted from the chart) 05/31 20:54 20:51 Social history: Smoking status: Patient/guardian denies using tobacco, lp1 lp1 06/01 00:36 00:33 Reassessment: Patient appears in no apparent distress at this time. Patient kr2 and/or family updated on plan of care and expected duration. Pain level reassessed. Patient is alert, oriented x 3, equal unlabored respirations, skin warm/dry/pink. Patient denies pain at this time. Patient states feeling better. Patient states symptoms have improved. kr2
--- NOTE | 2018-05-31 23:52 | EDPHYS ---
Physician Documentation [facility] Name: Selina Toussaint Age: 63 yrs Sex: Female : 1955 Arrival Date: 05/31/2018 Time: 20:30 Bed 15 Private MD: ED Physician Akash Hernandez HPI: 06/01 04:55 This 63 yrs old Female presents to ER via Wheelchair with complaints of Leg tw4 Pain. 04:55 The patient presents with pain. The complaints affect the lateral aspect of right calf, tw4 right ankle, lateral aspect of right foot, right calf, right Achilles, right heel, medial aspect of right calf, medial aspect of right foot, right conner, anterior aspect of right ankle and dorsum of right foot. Context:. Onset: The symptoms/episode began/occurred today. Modifying factors: The symptoms are alleviated by. Associated signs and symptoms: The patient has no apparent associated signs or symptoms. Treatment prior to arrival includes: no previous treatment. Severity of symptoms: At their worst the symptoms were moderate, in the emergency department the symptoms are unchanged. The patient has experienced similar episodes in the past, chronically. The patient has been recently seen at the [facility] Emergency Department, a couple of weeks ago. Historical: - Allergies: 05/31 20:54 Vicodin; lp1 - Home Meds: 20:54 amitriptyline 25 mg Oral tab 1 tab once daily [Active]; Aspirin Oral [Active]; lp1 atorvastatin Oral [Active]; Glimepiride Oral [Active]; lisinopril Oral [Active]; Metformin Oral [Active]; - PMHx: 20:54 Diabetes - NIDDM; Hyperlipidemia; Hypertension; Vertigo; lp1 - PSHx: 20:54 Carotid surgery; Arm surgery; lp1 - Immunization history:: Adult Immunizations up to date. - Social history:: Smoking status: Patient uses tobacco products, denies chronic smoking, but will smoke occasionally. - Ebola Screening: : No symptoms or risks identified at this time. ROS: 06/01 04:55 Constitutional: Negative for fever, chills, and weight loss, Cardiovascular: Negative tw4 for chest pain, palpitations, and edema, Respiratory: Negative for shortness of breath, cough, wheezing, and pleuritic chest pain, Abdomen/GI: Negative for abdominal pain, nausea, vomiting, diarrhea, and constipation. Back: Positive for pain at rest, Negative for injury or acute deformity, decreased range of motion. MS/extremity: Positive for Exam: 04:55 Constitutional: This is a well developed, well nourished patient who is awake, alert, tw4 and in no acute distress. Head/Face: Normocephalic, atraumatic. Chest/axilla: Normal chest wall appearance and motion. Nontender with no deformity. No lesions are appreciated. Cardiovascular: Regular rate and rhythm with a normal S1 and S2. No gallops, murmurs, or rubs. Normal PMI, no JVD. No pulse deficits. Respiratory: Lungs have equal breath sounds bilaterally, clear to auscultation and percussion. No rales, rhonchi or wheezes noted. No increased work of breathing, no retractions or nasal flaring. Abdomen/GI: Soft, non-tender, with normal bowel sounds. No distension or tympany. No guarding or rebound. No evidence of tenderness throughout. Back: No spinal tenderness. No costovertebral tenderness. Full range of motion. Vital Signs: 05/31 20:54 BP 134 / 63; Pulse 88; Resp 16; Temp 97.4(TE); Pulse Ox 99% on R/A; Weight 57.15 kg; lp1 Height 5 ft. 1 in. (154.94 cm); Pain 10; 06/01 00:32 BP 136 / 88; Pulse 80; Resp 18; Pulse Ox 100% on R/A; kr2 05/31 20:54 Body Mass Index 23.81 (57.15 kg, 154.94 cm) lp1 MDM: 05/31 21:21 Patient medically screened. tw4 06/01 04:55 Data reviewed: vital signs, nurses notes. Counseling: I had a detailed discussion with tw4 the patient and/or guardian regarding: the historical points, exam findings, and any diagnostic results supporting the discharge/admit diagnosis. Medication response: morphine markedly relieved the patient's pain. Symptoms have improved. Response to treatment: and as a result, I will discharge patient. Special discussion: I discussed with the patient/guardian in detail that at this point there is no indication for admission to the hospital. It is understood, however, that if the symptoms persist or worsen the patient needs to return immediately for re-evaluation. 05/31 22:36 Order name: Basic Metabolic Panel; Complete Time: 23:37 05/31 23:50 Interpretation: Normal except: GLUC 171; GFR 63. 05/31 22:36 Order name: CBC with Diff; Complete Time: 23:37 05/31 23:50 Interpretation: RBC 3.71; HCT 34.7; PLT 449. 05/31 22:36 Order name: Ckmb; Complete Time: 23:37 05/31 23:50 Interpretation: Within normal limits: CKMB < 1.0. 05/31 22:36 Order name: CPK; Complete Time: 23:37 05/31 22:36 Order name: LFT's; Complete Time: 23:37 05/31 22:36 Order name: Magnesium; Complete Time: 23:37 05/31 22:36 Order name: NT PRO-BNP; Complete Time: 23:37 05/31 22:36 Order name: PT-INR; Complete Time: 23:37 05/31 22:36 Order name: Ptt, Activated; Complete Time: 23:37 05/31 22:36 Order name: Troponin (emerg Dept Use Only); Complete Time: 23:37 05/31 22:36 Order name: EKG; Complete Time: 22:36 05/31 22:36 Order name: Lower Extremity Artery Uni Ltd 05/31 22:36 Order name: Cardiac monitoring; Complete Time: 22:53 05/31 22:36 Order name: EKG - Nurse/Tech; Complete Time: 00:38 05/31 22:36 Order name: IV Saline Lock; Complete Time: 22:53 05/31 22:36 Order name: Labs collected and sent; Complete Time: 22:53 05/31 22:36 Order name: O2 Per Protocol; Complete Time: 22:53 05/31 22:36 Order name: O2 Sat Monitoring; Complete Time: 22:53 EC:54 Rate is 72 beats/min. Rhythm is regular. QRS Dudley is Normal. CO interval is normal. QRS tw4 interval is normal. QT interval is normal. No Q waves. T waves are Inverted in leads V1, V2, V3. No ST changes noted. Clinical impression: RBBB. Interpreted by me. Reviewed by me. Administered Medications: 05/31 22:52 Drug: morphine 4 mg Route: IVP; Site: right antecubital; kr2 23:10 Follow up: Response: No adverse reaction; Pain is decreased kr2 22:53 Drug: Zofran 4 mg Route: IVP; Site: right antecubital; kr2 23:10 Follow up: Response: No adverse reaction; Nausea is decreased kr2 Point of Care Testing: Blood Glucose: 06/01 00:31 Blood Glucose: 128 mg/dL; kr2 Ranges: Critical Glucose Levels:Adult <50 mg/dl or >400 mg/dl <40 mg/dl or >180 mg/dl Disposition: 05/31/18 23:51 Discharged to Home. Impression: Radiculopathy, lumbar region, Sciatica, right side. - Condition is Stable. - Discharge Instructions: Lumbosacral Radiculopathy, Neuropathic Pain, Sciatica, Radicular Pain, Back Exercises. - Prescriptions for Ibuprofen 800 mg Oral Tablet - take 1 tablet by ORAL route every 8 hours As needed take with food; 30 tablet. Tramadol 50 mg Oral Tablet - take 1 tablet by ORAL route every 8 hours as needed; 12 tablet. - Medication Reconciliation Form, Thank You Letter, Antibiotic Education, Prescription Opioid Use form. - Follow up: Private Physician; When: Upon discharge from the Emergency Department; Reason: Recheck today's complaints, Continuance of care, Re-evaluation by your physician. Signatures: Dispatcher [employer] EDMS Ava Trinidad RN RN lp1 Kaia Cullen RN RN kr2 Akash Hernandez MD MD tw4 Corrections: (The following items were deleted from the chart) 05/31 20:54 20:51 Social history: Smoking status: Patient/guardian denies using tobacco, lp1 lp1 06/01 00:39 05/31 22:36 Urine Dipstick-Ancillary ordered. tw4 kr2 06/01 00:39 05/31 23:51 05/31/2018 23:51 Discharged to Home. Impression: Radiculopathy, lumbar kr2 region; Sciatica, right side. Condition is Stable. Forms are Medication Reconciliation Form, Thank You Letter, Antibiotic Education, Prescription Opioid Use. Follow up: Private Physician; When: Upon discharge from the Emergency Department; Reason: Recheck today's complaints, Continuance of care, Re-evaluation by your physician. tw4
[2018-06-01 00:45] VITALS: TEMP 97.4
[2018-06-01 00:47] VITALS: BP 136/88; O2SAT 100
--- NOTE | 2018-06-01 07:59 | RAD REPORT ---
EXAM DESCRIPTION: US - Lower Extremity Artery Uni Ltd - 05/31/2018 11:24 pm CLINICAL HISTORY: Right leg pain COMPARISON: None FINDINGS: The waveforms of the right common femoral and right superficial femoral arteries are triph asic. Mild to moderate plaque is seen. The waveforms of the right popliteal, right posterior tibial and right dorsalis pedis arteries are mo nophasic. IMPRESSION: A high-grade proximal/mid right lower extremity arterial stenosis is not seen. An occlusion is not visualized. Moderate disease involving the distal arteries of the right lower extremity
--- NOTE | 2018-06-01 15:38 | EKG ---
Test Date: 2018-05-31 Test Time: 23:21:28 Proj Mgr: NNEKA MEASUREMENT RESULTS: Intervals: Rate: 72 DE: 152 QRSD: 126 QT: 436 QTc: 477 Glade: P: 63 DE: 152 QRS: 91 T: 53 INTERPRETIVE STATEMENTS: Normal sinus rhythm Right bundle branch block Abnormal ECG Compared to ECG 07/17/2017 12:50:04 No significant changes Electronically Signed On 06-01-18 15:35:07 CDT by Ramón Barnhart
== END 2018-06-01 00:39 | disposition home or self-care (01) ==
LOC: ER 20:29
DX: M54.16 Radiculopathy, lumbar region (principal); M54.31 Sciatica, right side; I10 Essential (primary) hypertension; E78.5 Hyperlipidemia, unspecified; E11.9 Type 2 diabetes mellitus without complications; Z72.0 Tobacco use; Z79.82 Long term (current) use of aspirin; Z88.5 Allergy status to narcotic agent
CPT/HCPCS: 36415; 80048; 80076; 82550; 82553; 82962; 83735; 83880; 84484; 85025; 85610; 85730; 93005; 93926; 96374; 96375; 99284; J2405

== ENCOUNTER 2022-05-14 18:12 | Inpatient (IN) | payer OTHER ==
--- OUTSIDE RECORDS SUMMARY | 2022-05-14 18:22 | XMS REPORT | Continuity of Care Document ---
:1955 Author Organization [facility] t Address [address] [place] [address] Care Team Providers Name Role Phone Jc Attending Clinician Unavailable Cordell Richmond Attending Clinician Rob Edwards Attending Clinician Akil Chen Attending Clinician Cassia Brice Attending Clinician Marie Johnson Attending Clinician Jc Admitting Clinician Unavailable Cordell Richmond Admitting Clinician Rob Edwards Admitting Clinician Marie Johnson Admitting Clinician Problems Condition Condition Condition Status Onset Resolution Last Treating Co mments Source Name Details Category Date Date Treatment Clinician Date CHEST PAIN CHEST Diagnosis Active 2017-092018-07-06 Memoria PAIN 0-16 16:53:00 l Active 00:00: Charlie 06/29/2018 00 [facility] LOWER LIMB LOWER Diagnosis Active 2018-06-11 Memoria ISCHEMIA LIMB 06-04 16:39:00 l ISCHEMIA 00:00: [place] Active 00 06/04/2018 [facility] SURGERY SURGERY Diagnosis Active 2018-06-04 Memoria COMPLICATI COMPLICATI 06-04 23:22:00 l ONS ONS Active 00:00: Aristeo n 06/04/2018 00 [facility] PEREPHERAL Diagnosis Active 2018-06-10 Memoria ARTERIAL PEREPHERAL 06-01 22:09:00 l DISEASE ARTERIAL 00:00: Charlie DISEASE 00 Active 06/01/2018 [facility] BULGING BULGING Diagnosis Active 2018-06-01 Memoria DISCS IN DISCS IN 06-01 06:13:00 l BACK, PAIN BACK, PAIN 00:00: He rmann IN IN 00 LEGS/NUMB LEGS/NUMB Active 06/01/2018 [facility] HOSPITAL HOSPITAL Diagnosis Active 2014-04-01 Memoria FOLLOW UP FOLLOW UP 02-24 15:44:00 l Active 00:00: Charlie 02/24/2014 00 [facility] ABNORMAL ABNORMAL Diagnosis Active 2014-02-17 Memoria LABS LABS 02-17 19:53:00 l Active 00:00: Charlie 02/17/2014 00 [facility] HEADACHE HEADACHE Diagnosis Active 2014-02-10 Memoria Active 02-10 08:32:00 l 02/10/2014 00:00: Aristeo reese [address] THROMBOCYT THROMBOCY Diagnosis Active 2014-03-10 Memoria OPENIA TOPENIA 02-10 07:29:00 l Active 00:00: Charlie 02/10/2014 00 [facility] BACK PAIN BACK PAIN Diagnosis Active 2013-10-17 Memoria ON ON 01-02 11:40:00 l INSCISION INSCISION 00:00: Celine urban AREA AREA 00 Active 01/02/2013 [facility] OPEN LEFT OPEN LEFT Diagnosis Active 2013-06-06 Memoria BOTH BONE BOTH BONE 12-11 14:16:00 l FOREARM FOREARM 00:00: Charlie FRACTURE FRACTURE 00 Active 12/11/2012 [facility] ULNA ULNA Diagnosis Active 2013-10-20 Mem oria RADIUS FX RADIUS FX 12-11 10:16:00 l Active 00:00: Charlie 12/11/2012 00 [facility] Encounter Problem 2019-01-17 Me moria for Encounter 13:57:41 l immunizati for Aristeo reese on immunizati on 01/17/2019 [facility] Essential Essential Problem 2019-01-17 Memoria (primary) (primary) 13:57:41 l hypertensi hypertensi Hesham rmann on on 01/17/2019 [facility] Type 2 Type 2 Problem 2019-01-17 Moshe terrell diabetes diabetes 13:57:41 l mellitus mellitus Aristeo reese with with diabetic diabetic peripheral peripheral angiopathy angiopathy without without gangrene gangrene 01/17/2019 [facility] Pure Pure Problem 2019-01-17 Memor ia hyperchole hyperchole 13:57:41 l sterolemia sterolemia He rmann , , unspecifie unspecifie d d 01/17/2019 [facility] Hyperlipid Hyperlipi Problem 2019-01-17 Memoria litzy mcgill, 13:57:41 l unspecifie unspecifie He rmann d d 01/17/2019 [facility] Personal Personal Problem 2019-01-17 Memoria history of history of 13:57:41 l nicotine nicotine Aristeo n dependence dependence 01/17/2019 [facility] Shortness Shortness Problem 2019-01-17 Memoria of breath of breath 13:57:41 l 01/17/2019 Aristeo n [facility] Family Family Problem 2019-01-17 Moshe terrell history of history of 13:57:41 l ischemic ischemic Aristeo n heart heart disease disease and other and other diseases diseases of the of the clinical rehabilitation coordinator clinical rehabilitation coordinator y system y system 01/17/2019 [facility] venue manager venue manager Problem 2019-01-17 Memoria (current) (current) 13:57:41 l use of use of Charlie aspirin aspirin 01/17/2019 [facility] care home venue manager Problem 2019-01-17 Memoria (current) (current) 13:57:41 l use of use of Charlie oral oral hypoglycem hypoglycem ic drugs ic drugs 01/17/2019 [facility] venue manager care home Problem 2019-01-17 Memoria (current) (current) 13:57:41 l use of use of Charlie antithromb antithromb otics/anti otics/anti platelets platelets 01/17/2019 [facility] Unspecifie Problem 2019-01-17 M emoria d right Unspecifie 13:57:41 l bundle-bra d right Jaycee nn nch block bundle-bra nch block 01/17/2019 [facility] Presence Presence Problem 2019-01-17 Memoria of other of other 13:57:41 l vascular vascular Aristeo n implants implants and grafts and grafts 01/17/2019 [facility] Simple Simple Problem 2018-12-25 Moshe terrell chronic chronic 13:10:23 l bronchitis bronchitis He keren 04/13/201 9 [facility] Rheumatoid Rheumatoi Problem 2018-12-25 Memoria arthritis, d 13:10:23 l unspecifie arthritis, He rmann d unspecifie d 12/25/2018 [facility] Low back Low back Problem 2018-12-25 Memoria pain pain 13:10:23 l 12/25/2018 Aristeo reese [facility] Personal Personal Problem 2018-12-25 Memoria history of history of 13:10:23 l transient transient Herm urban ischemic ischemic attack attack (TIA), and (TIA), and cerebral cerebral infarction infarction without without residual residual deficits deficits 12/25/2018 [facility] care home venue manager Problem 2018-12-25 Memoria (current) (current) 13:10:23 l use of use of [place] opiate opiate analgesic analgesic 12/25/2018 [facility] Hemiplegia Hemiplegi Problem 2018-12-22 Memoria and a and 12:48:04 l hemiparesi hemiparesi He rmann s s following following cerebral cerebral infarction infarction affecting affecting right right dominant dominant side side 12/22/2018 [facility] Atheroscle Atheroscl Problem 2018-12-22 Memoria rosis of erosis of 12:48:04 l swinomish swinomish Charlie arteries arteries of of [facility] s with s with rest pain, rest pain, right leg right leg 12/22/2018 [facility] Systemic Systemic Problem 2018-12-22 Memoria lupus lupus 12:48:04 l erythemato erythemato He rmann kim, kim, unspecifie unspecifie d d 12/22/2018 [facility] Atheroscle Problem 2018-12-22 M emoria rotic Atheroscle 12:48:04 l 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 without artery angina without pectoris angina pectoris 12/22/2018 [facility] care home care home Problem 2018-12-22 Memoria (current) (current) 12:48:04 l use of use of Charlie insulin insulin 12/22/2018 [facility] Other Other Problem 2018-12-22 Memor ia chronic chronic 12:48:[address] 12/22/2018 [facility] Nicotine Nicotine Problem 2018-12-22 Memoria dependence dependence 12:48:04 l , , Charlie cigarettes cigarettes , , uncomplica uncomplica iva iva 12/22/2018 [facility] Lumbago Lumbago Problem 2018-12-22 Me moria with with 12:48:04 l sciatica, sciatica, Herm urban unspecifie unspecifie d side d side 12/22/2018 [facility] Diabetes Diabetes Problem Active 2019-01-17 Memoria mellitus mellitus 13:57:41 l (disorder) (disorder) He keren Active Problem 01/17/2019 [facility] Hyperchole Hyperchol Problem Active 2019-01-17 Memoria sterolemia esterolemi 13:57:41 l (disorder) a Aristeo n (disorder) Active Problem 01/17/2019 [facility] Hypertensi Hypertens Problem Active 2019-01-17 Memoria ve dante 13:57:41 l disorder, disorder, Herm urban systemic systemic arterial arterial (disorder) (disorder) Active Problem 01/17/2019 [facility] Diabetes Diabetes Problem Active 2013-04-29 Memoria mellitus mellitus 21:00:[address] Problem 04/29/2013 [facility] Hyperchole Problem Active 2013-04-29 M emoria sterolemia Hyperchole 21:00:25 l sterolemia Aristeo n Active Problem 04/29/2013 [facility] Hypertensi Hypertens Problem Active 2013-04-29 Memoria on ion Active 21:00:[address] 04/29/2013 [facility] FX SHAFT FX SHAFT Diagnosis Active 2013-06-06 Memoria RAD W RAD W 14:16:00 l ULNA-OPEN ULNA-OPEN Herm urban Active [facility] FRACTURE FRACTURE Diagnosis Active 2013-10-20 Memoria NOS-CLOSED NOS-CLOSED 10:16:00 l Active [facility] THROMBOCYT THROMBOCY Diagnosis Active 2014-03-10 Memoria OPENIA NOS TOPENIA 07:29:00 l NOS Active Aristeo n [facility] OTHER OTHER Diagnosis Active 2018-06-11 Mem oria DISORDER DISORDER 16:39:00 l OF OF 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 SYSTEM Y SYSTEM Active [facility] CHEST CHEST Diagnosis Active 2018-07-06 Mem oria PAIN, PAIN, 16:53:00 l UNSPECIFIE UNSPECIFIE He rmurban D D Active [facility] History of Past Illness Condition Condition Condition Status Onset Resolution Last Treating Co mments Source Name Details Category Date Date Treatment Clinician Date Other Other Problem 2017-092019-01-17 2019-01-17 Memoria chest pain chest pain 09-15 13:57:41 13:57:41 l 07/16/2018 03:31: Aristeo n 01/17/2019 03 [facility] Other Other Problem 2017-092018-12-25 2018-12-25 M emoria disorder disorder 10-16 13:10:23 13:10:23 l of of 05:44: Charlie clinical rehabilitation coordinator clinical rehabilitation coordinator 32 y system y system 08/15/2018 12/25/2018 [facility] Discharge Discharge Problem 2014-02-20 2014-02-20 Memoria Diagnosis: Diagnosis: 02-17 00:53:03 00:53:03 l ITP ITP 05:00: Charlie (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) 02/17/2014 4 [facility] Discharge Discharge Problem 2014-02-20 2014-02-20 Memoria Diagnosis: Diagnosis: 02-17 00:53:03 00:53:03 l SLE SLE 05:00: Charlie (systemic (systemic 00 lupus lupus erythemato erythemato kim) kim) 02/17/2014 02/20/2014 [facility] Allergies, Adverse Reactions, Alerts Allergy Allergy Status Severity Reaction(s) Onset Inactive Treating Comm ents Source Name Type Date Date Clinician carminaficresencio grewalfis Active Memori a h h l Charlie Vicodin Vicodin Active Severe Memoria l Charlie Social History Social Habit Start Date Stop Date Quantity Comments Source Social History 2014-02-10 2014-02-10 Serene cox 22:24:46 22:24:46 Medications Ordered Filled Start Stop Current Ordering Indication Dosage Frequency Signature Comments Components Source Medication Medication Date Date Medication? Clinician (SIG) Name Name robel, 2017-09 No Notes: Moshe terrell CARE HOME 8.6 MG 0-18 (Same as: l Oral Tablet 02:00: Senokot) [facility] Enoxaparin 2017-09 No Notes: Memor ia 0-17 (Same as: l 14:00: Lovenox) [place] 00 Docusate 2017-09 No Notes: Memoria Sodium 100 0-17 (Same as: l MG Oral 14:00: Colace) Capsule 00 (Do Not Crush) Lisinopril 2017-09 No Notes: Memor ia 0-17 (Same as: l 14:00: Prinivil, Zestril) clopidogrel 2017-09 No Notes: Moshe terrell 0-17 (Same As: l 14:00: Plavix) Aspirin 81 2017-09 No Notes: Memor ia MG Chewable 0-17 Take with l Tablet 14:00: food. atorvastati 2017-09 No Notes: Moshe terrell n 0-17 (Same As: l 14:00: Lipitor) gabapentin 2017-09 No Notes: Memor ia 300 MG Oral 0-17 (Same as: l Capsule 11:00: Neurontin) Hydrocortis 2017-09 No 1 appl, Mem oria one 0-17 Route: l butyrate 1 06:50: TOP, BID, He rmann MG/ML 00 Drug form: Topical CRM, PRN Cream Rash, Start date: 06/30/18 1:50:00 CDT, Duration: 30 day, Stop date: 07/30/18 1:49:00 [employer] Benadryl 2017-09 No Notes: Memoria 0-17 (Same as: l 06:50: Benadryl) Insulin 2017-09 No Notes: Memoria Lispro 0-17 (Same as: l 05:45: Humalog ) Roll in palms of hands gently; Do not shake `vigorousl y. "Single Patient Use Only " WASTE: F/P - Black; E - Municipal Trash Bin Stable for 28 days at room temperatur e. Expires in days from ____Date Dextrose 2017-09 No 12.5 gm, Memor ia 50% Syringe 0-17 25 mL, l 05:45: Route: IVP, Drug Form: INJ, Dosing Weight 57.273, kg, PRN, PRN Blood Glucose Results, Start date: 06/30/18 0:45:00 CDT, Duration: 30 day, Stop date: 07/29/18 23:44:00 [employer] Glucagon 2017-09 No 1 mg, Memoria 0-17 Route: IM, l 05:45: Drug form: PDR/INJ, PRN, Dosing Weight 57.273, kg, PRN Blood Glucose Results, Start date: 06/30/18 0:45:00 CDT, Duration: 30 day, Stop date: 07/29/18 23:44:00 [employer] Methocarbam 2017-09 No Notes: Moshe terrell ol 0-17 (Same l 05:31: as:Robaxin ) tramadol 2017-09 No Notes: Not Mem oria hydrochlori 0-17 to exceed l de 50 MG 05:15: 400mg/day. Her hancock Oral Tablet 00 (Same As: Ultram) Nitroglycer 2017-09 No Notes: Moshe terrell in 0.4 MG 0-17 (Same l Sublingual 05:15: as:Nitroqu H ermann Tablet 00 ick, Nitrostat) "Do Not Crush" Sublingual tablet Ondansetron 2017-09 No Notes: Moshe terrell 0-17 (Same as: l 05:14: Zofran) MEDICATION WASTE Product Size: 4 mg Product Wasted: ___ mg Enoxaparin No 40 mg = Moshe terrell 06-07 0.4 mL, l 20:59: SUB-Q, [id number], 0 Refill(s) Docusate Yes 100 mg = 1 Mem oria Sodium 100 06-07 cap, PO, l MG Oral 20:59: BID, [address] [place] [address] Capsule 00 Refill(s) sennosides, No 2 tab, Moshe terrell CARE HOME 06-07 Route: PO, l 02:00: Dosing Weight 58.182, kg, Bedtime, Start date: 06/06/18 21:00:00 CDT, Duration: 30 day, Stop date: 07/05/18 21:00:00 CDT Enoxaparin No Notes: Memor ia 06-06 (Same as: l 15:00: Lovenox) Oxycodone No Notes: Memori a Hydrochlori 06-06 (Same as: l de 5 MG 14:45: Roxicodone Herm urban Oral Tablet ) Docusate No Notes: Memoria 06-06 (Same as: l 14:00: Colace) (Do Not Crush) Oxycodone No Notes: Memori a Hydrochlori 06-06 (Same as: l de 5 MG 11:11: Roxicodone Herm urban Oral Tablet ) sennosides, No Notes: Moshe terrell CARE HOME 8.6 MG 06-06 (Same as: l Oral Tablet 02:00: Senokot) He glimepiride No 4 mg, Memor ia 06-05 Route: PO, l 14:00: Daily, Dosing Weight 57.273, kg, Start date: 06/05/18 9:00:00 CDT, Duration: 30 day, Stop date: 07/04/18 9:00:00 CDT Metformin No 1,000 mg, Mem oria 06-05 Route: PO, l 14:00: BID, Dosing Weight 57.273, kg, Start date: 06/05/18 9:00:00 CDT, Duration: 30 day, Stop date: 07/04/18 17:00:00 CDT Lisinopril No Notes: Memor ia - (Same as: l 14:00: Prinivil, Zestril) clopidogrel No Notes: Moshe terrell -22 (Same As: l 14:00: Plavix) atorvastati No Notes: Moshe terrell n 22 (Same As: l 14:00: Lipitor) Aspirin 81 No Notes: Memor ia MG Chewable 06-05 Take with l Tablet 14:00: food. Miralax No Notes: Memoria - Dissolve l 14:00: in 8 oz of water or juice. (Same as: Miralax) Glucagon No 1 mg, Memoria 06-05 Route: IM, l 11:09: Drug form: PDR/INJ, PRN, Dosing Weight 58.182, kg, PRN Blood Glucose Results, Start date: 06/05/18 6:09:00 CDT, Duration: 30 day, Stop date: 07/05/18 6:08:00 CDT Dextrose No 12.5 gm, Memor ia 50% Syringe 06-05 25 mL, l 11:09: Route: [place] IVP, Drug Form: INJ, Dosing Weight 58.182, kg, PRN, PRN Blood Glucose Results, Start date: 06/05/18 6:09:00 CDT, Duration: 30 day, Stop date: 07/05/18 6:08:00 CDT Insulin No Notes: Memoria Lispro 06-05 (Same as: l 11:09: Humalog ) Roll in palms of hands gently; Do not shake `vigorousl y. "Single Patient Use Only " WASTE: F/P - Black; E - Municipal Trash Bin Stable for 28 days at room temperatur e. Expires in days from ____Date tramadol No Notes: Not Mem oria hydrochlori 06-05 to exceed l de 50 MG 11:00: 400mg/day. Her hancock Oral Tablet 00 (Same As: Ultram) gabapentin No Notes: Memor ia 300 MG Oral 06-05 (Same as: l Capsule 11:00: Neurontin) Methocarbam No Notes: Moshe terrell ol 06-05 (Same l 09:04: as:Robaxin ) Acetaminoph No Notes: Max Memoria en 06-05 acetaminop l 09:04: hen = [place] 00 4000mg/day (4 gm/day). (Same as: Tylenol) Acetaminoph Yes 650 mg = Me moria en 06-04 20.3 mL, l 19:14: PO, Q6H, [place] 00 PRN Pain Score 1-5, 0 Refill(s) methocarbam Yes 750 mg = 1 Memoria ol 750 mg 06-04 tab, PO, l oral tablet 19:14: Q8H, PRN He rmann 00 Spasm, 0 Refill(s) tramadol Yes 50 mg = 1 Moshe terrell hydrochlori 06-04 tab, PO, l de 50 MG 19:14: Q6H, 0 Charlie Oral Tablet 00 Refill(s) sennosides, Yes 17.2 mg = M emoria CARE HOME 8.6 MG 06-04 2 tab, PO, l Oral Tablet 19:14: Bedtime, [address] [place] [address] Refill(s) gabapentin Yes 300 mg = 1 M emoria 300 MG Oral 06-04 cap, PO, l Capsule 19:14: Q8H-06, 0 Jaycee nn 00 Refill(s) clopidogrel No 75 mg = 1 M emoria 75 mg oral 06-04 tab, PO, l tablet 19:14: Daily, 0 Charlie Refill(s) Aspirin 81 Yes 81 mg = 1 Me moria MG Chewable 06-04 tab, NG, l Tablet 19:14: Daily, [address] [place] [address] Refill(s) Bisacodyl No Notes: Memori a 06-04 (Same As: l 14:30: Dulcolax, [place] 00 Bisco-Lax) heparin No Notes: Memoria sodium, 06-04 porcine l porcine 02:00: heparin [place] 2500 UNT/ML 00 Injectable Solution Insulin No Notes: Memoria Lispro 06-03 (Same as: l 20:09: Humalog ) Roll in palms of hands gently; Do not shake `vigorousl y. "Single Patient Use Only " WASTE: F/P - Black; E - Municipal Trash Bin Stable for 28 days at room temperatur e. Expires in days from ____Date Glucagon No 1 mg, Memoria 06-03 Route: IM, l 20:09: Drug form: PDR/INJ, PRN, Dosing Weight 56.818, kg, PRN Blood Glucose Results, Start date: 06/03/18 15:09:00 CDT, Duration: 30 day, Stop date: 07/03/18 15:08:00 CDT Dextrose No 25 gm, 50 Moshe terrell 50% Syringe 9-20 mL, Route: l 20:09: IVP, Drug Form: INJ, Dosing Weight 56.818, kg, PRN, PRN Blood Glucose Results, Start date: 06/03/18 15:09:00 CDT, Duration: 30 day, Stop date: 07/03/18 15:08:00 CDT potassium No Notes: Memori a phosphate - (Same as: l 20:09: K Phosphate. ) Do not infuse phosphorou s concurrent ly in the same line as TPN or IVF that contains calcium. For double lumen central lines, phosphorou s may be infused in a separate lumen from TPN. 1 mMol phoshate has 1.47 mEq potassium Infuse over 4 hours potassium No Notes: Memori a phosphate-s 06-03 (Same as: l odium 20:09: Phos-NaK) [place] phosphate 00 Each 1.5 250 mg-280 gm pkt has mg-160 mg 250mg oral powder phosphorou for s. Mix reconstitut w/2.5oz ion water and stir. Potassium No Notes: Memori a Chloride 06-03 (Same as: l 20:09: Potassium Chloride) Calcium No Notes: Memoria Gluconate 06-03 WASTE: F/P l 20:09: - Sink; E - Municipal Trash Bin Magnesium No Notes: Memori a Oxide 06-03 (Same as: l 20:09: Mag-Ox 400) Magnesium oxide [id number] g elemental magnesium Dose=____m g magnesium oxide (___mg elemental magnesium) Magnesium No Notes: Memori a Sulfate 06-03 WASTE: F/P l 20:09: - Sink; E - Municipal Trash Bin sodium No Notes: Memoria phosphate - Infuse l 20:09: over 4 Charlie 00 hour. Do not infuse phosphorou s concurrent ly in the same line as TPN or IVF that contains calcium. For double lumen central lines, phosphorou s may be infused in a separate lumen from TPN. Lisinopril No Notes: Memor ia 06-03 (Same as: l 17:00: Prinivil, Zestril) Insulin No 4 unit, Memoria Glargine 06-03 Route: l 14:00: SUB-Q, Daily, Dosing Weight 56.818, kg, Start date: 06/03/18 9:00:00 CDT, Duration: 30 day, Stop date: 07/02/18 9:00:00 CDT Insulin No Notes: Memoria Lispro 06-03 (Same as: l 02:19: Humalog ) Roll in palms of hands gently; Do not shake `vigorousl y. "Single Patient Use Only " WASTE: F/P - Black; E - Municipal Trash Bin Stable for 28 days at room temperatur e. Expires in days from ____Date Dextrose No 12.5 gm, Memor ia 50% Syringe 06-03 25 mL, l 02:19: Route: IVP, Drug Form: INJ, Dosing Weight 56.818, kg, PRN, PRN Blood Glucose Results, Start date: 06/02/18 21:19:00 CDT, Duration: 30 day, Stop date: 07/02/18 21:18:00 CDT Glucagon No 1 mg, Memoria 06-03 Route: IM, l 02:19: Drug form: PDR/INJ, PRN, Dosing Weight 56.818, kg, PRN Blood Glucose Results, Start date: 06/02/18 21:19:00 CDT, Duration: 30 day, Stop date: 07/02/18 21:18:00 CDT atorvastati No Notes: Moshe terrell n 06-03 (Same As: l 02:00: Lipitor) sennosides, No Notes: Moshe terrell CARE HOME 06-03 (Same as: l 02:00: Senokot) Docusate No Notes: Memoria 06-02 (Same as: l 22:00: Colace) (Do Not Crush) Insulin No Notes: Memoria Glargine 06-02 Same as: l 100 UNT/ML 21:30: Lantus) Do H ermann Injectable 00 not hold Solution insulin without contacting prescriber WASTE: F/P - Black; E - Municipal Trash Bin gabapentin No Notes: Memor ia 06-02 (Same as: l 19:00: Neurontin) Tramadol No Notes: Not Mem oria 06-02 to exceed l 17:00: 400mg/day. 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 (Same as: Tylenol) chlorhexidi No Notes: Moshe terrell ne 06-02 (Same As: l gluconate 14:00: Hibiclens) He rmann 40 MG/ML 00 Medicated Liquid Soap Aspirin 81 No Notes: Memor ia MG Chewable 06-02 Take with l Tablet 14:00: food. Lisinopril Yes 10 mg, PO, M emoria 06-02 Daily, 0 l 08:55: Refill(s) chlorhexidi No Notes: Moshe terrell ne 06-02 (Same As: l gluconate 02:00: Peridex) Herm urban 1.2 MG/ML 00 Mouthwash Simvastatin 2017-0 No Notes: Moshe terrell 06-02 (Same as: l 02:00: Zocor) atorvastati 2018-0 Yes 20 mg, PO, Memoria n 06-02 Daily, 0 l 01:59: Refill(s) glimepiride 2018-0 Yes 4 mg, PO, M emoria 06-02 Daily, 0 l 01:58: Refill(s) Metformin 2018-0 Yes 1,000 mg, Mem oria 06-02 PO, BID, 0 l 01:58: Refill(s) Sodium 2017-0 No 1,000 mL, Memori a Chloride 06-02 Rate: 125 l 0.9% IV 00:12: ml/hr, [place] 1000 mL 00 Infuse over: 8 hr, Route: IV, Dosing Weight 56.818 kg, Total Volume: 1,000, Start date: 06/01/18 19:12:00 CDT, Duration: 30 day, Stop date: 07/01/18 19:11:00 CDT, 1.58, m2 Oxycodone 2017-0 No 5 mg, Memoria 06-02 Route: PO, l 00:12: Drug form: Charlie 00 TAB, Q4H, Dosing Weight 56.818, kg, PRN Pain Score 4-6, Start date: 06/01/18 19:12:00 CDT, Duration: 30 day, Stop date: 07/01/18 19:11:00 CDT Fentanyl 2018-0 No 25 Memoria 06-02 microgram, l 00:12: Route: [place] 00 IVP, Q5Min, Dosing Weight 56.818, kg, PRN Pain Score 4-6, Priority: Routine, Start date: 06/01/18 19:12:00 CDT, Duration: 4 doses or times, Stop date: Limited # of times Hydralazine 2018-0 No 10 mg, Moshe terrell 06-02 Route: l 00:12: IVP, Charlie 00 Q20Min, Dosing Weight 56.818, kg, PRN Elevated BP, Start date: 06/01/18 19:12:00 CDT, Duration: 2 doses or times, Stop date: Limited # of times Ondansetron 2017-0 No 4 mg, Memor ia 06-02 Route: l 00:12: IVP, ONCE, Dosing Weight 56.818, kg, PRN Nausea & Vomiting, Start date: 06/01/18 19:12:00 CDT Sodium 2017-0 No 500 mL, Memoria Chloride 06-02 Infuse l 0.9% 00:12: Over: [address] [place] [address] (Bolus) IV 00 minutes, Route: IV, ONCE, Dosing Weight 56.818 kg, Start date: 06/01/18 19:12:00 CDT, Stop date: 06/01/18 19:12:00 CDT Flumazenil 2017-0 No 0.2 mg, Moshe terrell 06-02 Route: l 00:12: IVP, PRN, Dosing Weight 56.818, kg, PRN Benzodiaze pine Reversal, Initial dose, Start date: 06/01/18 19:12:00 CDT, Duration: 30 day, Stop date: 07/01/18 19:11:00 CDT Naloxone 2017-0 No 0.4 mg, Memori a 06-02 Route: l 00:12: IVP, [place] 00 Q2MIN, Dosing Weight 56.818, kg, PRN Narcotic Reversal, Start date: 06/01/18 19:12:00 CDT, Duration: 8 doses or times, Stop date: Limited # of times acetaminoph No Route: IV, Memoria en (ANES) 06-02 Drug form: l 00:06: INJ, ONCE, Stop date: 06/01/18 19:06:00 CDT calcium 0 No Route: IV, Moshe terrell gluconate 06-01 Drug form: l (ANES) 23:51: INJ, ONCE, Jaycee Stop date: 06/01/18 18:51:00 CDT protamine 0 No Route: IV, Me moria (ANES) 06-01 Drug form: l 23:46: INJ, ONCE, Charlie Stop date: 06/01/18 18:46:00 CDT Fentanyl 2017-0 No 25 Memoria 06-01 microgram, l 23:36: Route: [facility] 00 IVP, Q5Min, Dosing Weight 56.818, kg, PRN Pain Score 4-6, Priority: Routine, Start date: 06/01/18 18:36:00 CDT, Duration: 4 doses or times, Stop date: Limited # of times Ondansetron No 4 mg, Memor ia 06-01 Route: l 23:36: IVP, ONCE, Dosing Weight 56.818, kg, PRN Nausea & Vomiting, Start date: 06/01/18 18:36:00 CDT Naloxone No 0.4 mg, Memori a 06-01 Route: l 23:36: IVP, Q2MIN, Dosing Weight 56.818, kg, PRN Narcotic Reversal, Start date: 06/01/18 18:36:00 CDT, Duration: 8 doses or times, Stop date: Limited # of times Flumazenil No 0.2 mg, Moshe terrell 06-01 Route: l 23:36: IVP, PRN, Dosing Weight 56.818, kg, PRN Benzodiaze pine Reversal, Initial dose, Start date: 06/01/18 18:36:00 CDT, Duration: 30 day, Stop date: 07/01/18 18:35:00 CDT cisatracuri No Route: IV, Memoria um (ANES) 06-01 Drug form: l 21:56: INJ, ONCE Stop date: 06/01/18 16:56:00 CDT heparin No Route: IV, Moshe terrell (ANES) 06-01 Drug form: l 21:16: INJ, ONCE, Stop date: 06/01/18 16:16:00 CDT esmolol No Route: IV, Moshe terrell (ANES) 06-01 Drug form: l 21:01: INJ, ONCE, Stop date: 06/01/18 16:01:00 CDT Cefazolin No Notes: Memori a 06-01 (Same as l 21:00: Ancef) ceFAZolin No Route: IV, Me moria (ANES) 06-01 Drug form: l 20:51: INJ, ONCE, Stop date: 06/01/18 15:51:00 CDT lidocaine No Route: IV, moria (ANES) 06-01 Drug form: l 20:46: INJ, ONCE, Stop date: 06/01/18 15:46:00 CDT rocuronium No Route: IV, M emoria (ANES) 06-01 Drug form: l 20:46: INJ, ONCE, Stop date: 06/01/18 15:46:00 CDT fentaNYL No Route: IV, Mem oria (ANES) 06-01 Drug form: l 20:46: INJ, ONCE, Stop date: 06/01/18 15:46:00 CDT propofol No Route: IV, Mem oria (ANES) 06-01 Drug form: l 20:46: INJ, ONCE, Stop date: 06/01/18 15:46:00 CDT Sodium No Route: IV, Memor ia Chloride 06-01 Total l 0.9% IV 19:40: Volume: [place] [facility] (ANES) 500 00 500, Start mL date: 06/01/18 14:40:00 CDT, Stop date: 06/01/18 15:40:00 CDT Isolyte S No Route: IV, Me moria PH 7.4 06-01 Total l (ANES) 1000 19:25: Volume: Her hancock mL 00 1,000, Start date: 06/01/18 14:25:00 CDT, Stop date: 06/01/18 15:25:00 CDT Insulin No 60 units) Moshe terrell regular 06-01 WASTE: F/P l 19:05: - Black; E - Municipal Trash Bin Stable for 28 days at room temperatur e Expires in days from ____Date Albuterol No Notes: Memori a 0.833 MG/ML 06-01 (Same as: l / 19:05: Duoneb) [facility] Ipratropium 00 [place] 0.167 MG/ML Inhalant Solution Nitroglycer No Notes: Moshe terrell in 06-01 (Same l 19:05: as:Nitroqu Charlie 00 ick, Nitrostat) "Do Not Crush" Sublingual tablet Docusate No Notes: Memoria 06-01 (Same as: l 19:05: Colace) Charlie 00 (Do Not Crush) Morphine No Notes: Memoria 06-01 (Same l 19:05: as:MORPhin Charlie 00 e Sulfate) Calcium No 1,000 mL, Memor ia Chloride 06-01 Rate: 50 l 0.0014 19:05: ml/hr, Charlie MEQ/ML / 00 Infuse Potassium over: 20 Chloride hr, Route: 0.004 IV, Dosing MEQ/ML / Weight Sodium 56.818 kg, Chloride Total 0.103 Volume: MEQ/ML / 1,000, Sodium Start Lactate date: 0.028 06/01/18 MEQ/ML 14:05:00 Injectable CDT, Solution Duration: 30 day, Stop date: 07/01/18 14:04:00 CDT, 1.58, m2 Magnesium No Notes: Memori a Oxide 06-01 (Same as: l 19:05: Mag-Ox Charlie 00 400) Magnesium oxide [id number] g elemental magnesium Dose=____m g magnesium oxide (___mg elemental magnesium) Calcium No Notes: [facility] Gluconate 06-01 WASTE: F/P l 19:05: - Sink; E - Municipal Trash Bin Calcium No Notes: Memoria Carbonate 06-01 (Same As: l 500 MG 19:05: Tums) [facility] Chewable 00 Calcium Tablet Carbonate 500 mg = 200 mg elemental calcium Dose = mg calcium carbonate ( mg elemental calcium) Magnesium No Notes: Memori a Sulfate 06-01 WASTE: F/P l 19:05: - Sink; E - Municipal Trash Bin potassium No Notes: Memori a phosphate-s 06-01 (Same as: l odium 19:05: Phos-NaK) [facility] phosphate 00 Each 1.5 250 mg-280 gm pkt has mg-160 mg 250mg oral powder phosphorou for s. Mix reconstitut w/2.5oz ion water and stir. potassium No Notes: Memori a phosphate 9-18 (Same as: l 19:05: K [place] [facility] 00 Phosphate. ) Do not infuse phosphorou s concurrent ly in the same line as TPN or IVF that contains calcium. For double lumen central lines, phosphorou s may be infused in a separate lumen from TPN. 1 mMol phoshate has 1.47 mEq potassium Infuse over 4 hours sodium 2018-0 No Notes: Memoria phosphate -18 Infuse l 19:05: over 4 Charlie 00 hour. Do not infuse phosphorou s concurrent ly in the same line as TPN or IVF that contains calcium. For double lumen central lines, phosphorou s may be infused in a separate lumen from TPN. Potassium 2017-0 No Notes: Memori a Chloride 06-01 (Same as: l 19:05: Potassium Charlie 00 Chloride) Sodium 2017-0 No 250 mL, Memoria Chloride 06-01 Rate: To l 0.9% 18:33: prime line [facility] (titrate) 00 and flush 250 mL remaining blood products., Dosing Weight 56.818, kg, Route: IV, Total Volume: 250, Start Date: 06/01/18 13:33:00 CDT, Duration: 1 day, Stop date: 06/02/18 13:32:00 CDT, Replace Every: 24 hr Morphine 2017-0 No 4 mg, Memoria 06-01 Route: l 16:00: IVP, ONCE, Dosing Weight 56.818, kg, Priority: STAT, Start date: 06/01/18 11:00:00 CDT, Stop date: 06/01/18 11:00:00 CDT Morphine 2017-0 No 4 mg, Memoria 06-01 Route: l 14:53: IVP, ONCE, Dosing Weight 56.818, kg, Priority: STAT, Start date: 06/01/18 9:53:00 CDT, Stop date: 06/01/18 9:53:00 CDT Heparin - 2017-0 No 4,500 Memoria one time 06-01 unit, 4.5 l bolus for 12:56: mL, Route: He rmann DVT/PE 00 IVP, Drug form: INJ, ONCE, Dosing Weight 56.818, kg, Priority: STAT, Start date: 06/01/18 7:56:00 CDT, Stop date: 06/01/18 7:56:00 CDT Heparin 80 0 No Route: Memor ia unit/kg 06-01 IVP, PRN, l Bolus 12:56: 4,[address] [place] [address] (Heparin 00 unit, 4.5 Dosing mL, Drug Weight) form: INJ, PRN, Heparin Protocol, Start date: 06/01/18 7:56:00 CDT Stop date: 07/01/18 7:55:00 CDT, 30 day heparin 2017-0 No 500 mL, Memoria additive 06-01 Rate: l 25,000 unit 12:56: 20.45 Jaycee nn [18 00 ml/hr, unit/kg/hr] Infuse + Premix over: 24.4 Diluent hr, Route: Sodium IV, Dosing Chloride Weight 0.45% 500 56.818 kg, mL Total Volume: 500 mL, Start date: 06/01/18 7:56:00 CDT, Duration: 30 day, Stop date: 07/01/18 7:55:00 CDT, 1.58, m2 Heparin 40 No Route: Memor ia unit/kg 06-01 IVP, PRN, l Bolus 12:56: 2,[address] [place] [address] (Heparin 00 unit, 2.3 Dosing mL, Drug Weight) form: INJ, PRN, Heparin Protocol, Start date: 06/01/18 7:56:00 CDT Stop date: 07/01/18 7:55:00 CDT, 30 day Iohexol 2017-0 No 100 mL, Memoria 06-01 Route: l 12:21: IVP, Drug [place] [facility] 00 Form: SOLN, Dosing Weight 56.818, kg, ONCALL, STAT, Start date: 06/01/18 7:21:00 CDT, Duration: 1 doses or times, Dose = 2.2ml/kg, Max dose = 100ml -- "To be infused by Radiology Staff ONLY" Iohexol 2017-0 No 100 mL, Memoria 06-01 Route: l 11:54: IVP, Drug [place] [facility] 00 Form: SOLN, Dosing Weight 56.818, kg, ONCALL, STAT, Start date: 06/01/18 6:54:00 CDT, Duration: 1 doses or times, Dose = 2.2ml/kg, Max dose = 100ml -- "To be infused by Radiology Staff ONLY" Zofran 2017-0 No 4 mg, Memoria 06-01 Route: l 11:21: IVP, Drug form: INJ, ONCE, Dosing Weight 56.818, kg, Priority: STAT, Start date: 06/01/18 6:21:00 CDT, Stop date: 06/01/18 6:21:00 CDT Morphine 2018-0 No 4 mg, Memoria 06-01 Route: l 11:21: IVP, ONCE, Dosing Weight 56.818, kg, Priority: STAT, Start date: 06/01/18 6:21:00 CDT, Stop date: 06/01/18 6:21:00 CDT Zofran 2018-0 No 4 mg, Memoria 06-01 Route: l 10:24: IVP, Drug form: INJ, ONCE, Dosing Weight 56.818, kg, Priority: STAT, Start date: 06/01/18 5:24:00 CDT, Stop date: 06/01/18 5:24:00 CDT Morphine 2017-0 No 4 mg, Memoria 06-01 Route: l 10:23: IVP, ONCE, Dosing Weight 56.818, kg, Priority: STAT, Start date: 06/01/18 5:23:00 CDT, Stop date: 06/01/18 5:23:00 CDT predniSONE Yes 60 mg = 3 Me moria 20 mg oral 6-03 tab, PO, l tablet 22:03: Daily, # Charlie 00 90 tab, 0 Refill(s) lisinopril Yes 5 mg = 1 Mem oria 5 mg oral 6-03 tab, PO, l tablet 22:03: Daily, # [place] [facility] 00 30 tab, 2 Refill(s) Metformin Yes 1,000 mg = Me moria hydrochlori 6-03 1 tab, PO, l de 1000 MG 22:03: BID, # 60 He rmann Oral Tablet 00 tab, 2 Refill(s) 3 ML Yes = 15 unit, Memoria Insulin 6-03 SUB-Q, l Glargine 22:03: Daily, # Jaycee nn 100 UNT/ML 00 10 mL, 0 Prefilled Refill(s) Syringe [Lantus] Lovenox No Notes: Memoria 02-14 (Same as: l 13:00: Lovenox) Lantus No Notes: Memoria 02-13 Same as l 14:00: Lantus Solostar PEN "single patient use only" Stable for 28 days at room temperatur e. Expires in days from ____Date Sodium No 1,000 mL, Memori a Chloride 02-12 1,000 l 0.154 21:42: ml/hr, [place] [facility] MEQ/ML 00 Infuse Injectable Over: 1 Solution hr, Route: IV, 1,000, Drug form: INJ, ONCE, Priority: STAT, Dosing Weight 57.415 kg, Start date: 02/12/14 16:42:00, Duration: 1 doses or times, Stop date: 02/12/14 16:42:00 NPH No 60 units) Memoria Insulin, 02-12 Stable for l Pork 17:00: 28 days at Charlie 00 room temperat e Expires in days from ____Date Insulin, No 60 units) Mem oria Regular, 02-12 Stable for l Pork 16:52: 28 days at Charlie 00 room temperat e Expires in days from ____Date Glucagon No 1 mg, Memoria 02-12 Route: IM, l 16:52: Drug form: PDR/INJ, PRN, Dosing Weight 57.415, kg, PRN Blood Glucose Results, Start date: 02/12/14 11:52:00, Duration: 30 day, Stop date: 03/14/14 11:51:00 Dextrose No 12.5 gm, Memor ia 50% Syringe 02-12 25 mL, l 16:52: Route: IVP, Drug Form: INJ, Dosing Weight 57.415, kg, PRN, PRN Blood Glucose Results, Start date: 02/12/14 11:52:00, Duration: 30 day, Stop date: 03/14/14 11:51:00 Insulin, No 60 units) Mem oria Regular, 6- Stable for l Pork 02:22: 28 days at Charlie 00 room temperatur e Expires in days from ____Date Insulin, No 60 units) Mem oria Regular, 6- Stable for l Pork 02:21: 28 days at Charlie 00 room temperatur e Expires in days from ____Date Glucagon No 1 mg, Memoria 6- Route: IM, l 02:21: Drug form: Charlie 00 PDR/INJ, PRN, Dosing Weight 57.415, kg, PRN Blood Glucose Results, Start date: 02/11/14 21:21:00, Duration: 30 day, Stop date: 03/13/14 21:20:00 Dextrose No 12.5 gm, Memor ia 50% Syringe 02-12 25 mL, l 02:21: Route: [facility] 00 IVP, Drug Form: INJ, Dosing Weight 57.415, kg, PRN, PRN Blood Glucose Results, Start date: 02/11/14 21:21:00, Duration: 30 day, Stop date: 03/13/14 21:20:00 Protonix No Notes: Memoria 5-31 Tablet l 21:30: should not be chewed or crushed. (Same as: Protonix) Lisinopril No Notes: Memor ia 5-31 (Same as: l 14:00: Prinivil, [place] [facility] 00 Zestril) Prednisone No Notes: Memor ia 5-31 Take with l 14:00: food. Insulin, No 60 units) Mem oria Regular, 5-31 Stable for l Pork 05:39: 28 days at Charlie 00 room temperatur e Expires in days from ____Date Simvastatin No Notes: Moshe terrell 5-31 (Same as: l 02:00: Zocor) Insulin, 2013- No 60 units) Mem oria Regular, 5-31 Stable for l Pork 01:53: 28 days at Charlie [address] [facility] e Expires in days from ____Date Insulin, 2013-0 No 60 units) Mem oria Regular, 5-30 Stable for l Pork 22:38: [address] [facility] e Expires in days from ____Date Glucagon 2013-0 No 1 mg, Memoria 5-30 Route: IM, l 22:38: PRN, Dosing Weight 53.636, kg, PRN Blood Glucose Results, Start date: 02/10/14 17:38:00, Duration: 30 day, Stop date: 03/12/14 17:37:00 Dextrose 2013- No 25 mL, Memoria 50% Syringe 5-30 Route: l 22:38: IVP, Dosing Weight 53.636, kg, PRN, PRN Blood Glucose Results, Start date: 02/10/14 17:38:00, Duration: 30 day, Stop date: 03/12/14 17:37:00 Lisinopril 2013-0 No Notes: Memor ia 5-30 (Same as: l 19:24: Prinivil, Zestril) Insulin, No 60 units) Mem oria Regular, 5-30 Stable for l Pork 19:23: [address] [facility] e Expires in days from ____Date Dextrose 2013-0 No 12.5 gm, Memor ia 50% Syringe 5-30 25 mL, l 19:23: Route: IVP, Drug Form: INJ, Dosing Weight 53.636, kg, PRN, PRN Blood Glucose Results, Start date: 02/10/14 14:23:00, Duration: 30 day, Stop date: 03/12/14 14:22:00 Glucagon 2013-0 No 1 mg, Memoria 5-30 Route: IM, l 19:23: Drug form: [place] [facility] 00 PDR/INJ, PRN, Dosing Weight 53.636, kg, PRN Blood Glucose Results, Start date: 02/10/14 14:23:00, Duration: 30 day, Stop date: 03/12/14 14:22:00 Acetaminoph No Notes: Max Memoria en 5-30 acetaminop l 19:19: hen = [place] [facility] 00 4000mg/day (4 gm/day). (Same as: Tylenol) Acetaminoph No Notes: Moshe terrell en 325 MG / 5-30 (Same as: l Hydrocodone 19:19: [place] Jaycee nn Bitartrate 00 325/5) Do 5 MG Oral not exceed Tablet 4gm/day of acetaminop hen. Ondansetron No Notes: Moshe terrell 5-30 (Same as: l 19:19: Zofran) Docusate No Notes: Memoria 5-30 (Same as: l 19:19: Colace) (Do Not Crush) Prednisone No Notes: Memor ia 5-30 Take with l 17:01: food. Prednisone No 10 mg, PO, M emoria 5-30 TID, 0 l 14:43: Refill(s) Ketorolac No 4 days. Moshe terrell Tromethamin 5-30 l e 15 MG/ML 12:50: [place] [facility] Injectable 00 Solution Reglan No Notes: Memoria 5-30 (Same as: l 12:49: Reglan) Sodium No 1,000 mL, Memori a Chloride 5-30 1,000 l 0.154 12:49: ml/hr, Charlie MEQ/ML 00 Infuse Injectable Over: 1 Solution hr, Route: IV, 1,000, Drug form: INJ, ONCE, Priority: STAT, Dosing Weight 56.818 kg, Start date: 02/10/14 7:49:00, Duration: 1 doses or times, Stop date: 02/10/14 7:49:00 naloxone No Héctor Ndi 0.04 mg, Memoria 814 Akwar 0.1 mL, l 13:33: Route: [place] [facility] 00 IVP, Drug form: INJ, Q2MIN, Dosing Weight 56.818, kg, PRN Narcotic Reversal, Start date: 04/27/13 8:33:00, Duration: 8 doses or times, Stop date: 04/28/13 0:00:00 ondansetron No Héctor Ndi 4 mg, 2 Memoria 8-14 Akwar mL, Route: l 13:33: IVP, Drug form: INJ, ONCE, Dosing Weight 56.818, kg, PRN Nausea & Vomiting, Start date: 04/27/13 8:33:00 hydromorpho No Héctor Ndi 0.5 mg, Memoria ne 04-27 Akwar 0.25 mL, l 13:33: Route: IVP, Drug form: INJ, Q5Min, Dosing Weight 56.818, kg, PRN Pain Score 7-10, Start date: 04/27/13 8:33:00, Duration: 5 doses or times, Stop date: 04/28/13 0:00:00 [place] Yes Osorio 1 tab, PO, Memor ia 10/325 oral 04-27 Sea Q6H, PRN, l tablet 13:32: Lindsay 20 tab, Her hancock 30 for pain, Substituti on Allowed, Maintenanc e cefazolin No Rangel 1 gm, Memor ia 14 Latrice Bryan Route: l 10:00: IVPB, Drug form: PDR/INJ, PRE OP, Start date: 04/27/13 5:00:00, Duration: 1 day, Stop date: 04/28/13 4:59:00 glimepiride Yes 2 mg, 1 Mem oria 2 mg oral 8-13 tab, PO, l tablet 15:06: Daily, 30 Aristeo n 14 tab, Substituti on Allowed, TAB simvastatin Yes 40 mg, 1 Me moria 40 mg oral 8-13 tab, PO, l tablet 15:06: Bedtime, [place] [facility] 05 30 tab, Substituti on Allowed, Maintenanc e metFORmin Yes 1,000 mg, Mem oria 1000 mg 8 1 tab, PO, l oral tablet 15:05: BID, 30 Her hancock 45 tab, Substituti on Allowed Bactrim DS Yes Anthony 1 tab, PO, M emoria oral tablet 4-21 Armando BID, 20 l 19:03: [place]stra tab, Charlie 16 Substituti on Allowed, Maintenanc e Dilaudid No Anthony 1 mg, Memoria 4 Armando Route: IV, l 16:43: [place] ONCE, [place] [facility] 00 Dosing Weight 59.091, kg, Start date: 01/02/13 11:43:00, Stop date: 01/02/13 11:43:00 Dilaudid No Anthony 1 mg, 0.5 Moshe terrell 01-02 Armando mL, Route: l 16:33: B[place]stra IM, Drug Aristeo n 00 form: INJ, ONCE, Dosing Weight 59.091, kg, Start date: 01/02/13 11:33:00, Stop date: 01/02/13 11:33:00 tetanus/dip No Marco A 0.5 ml, M emoria htheria/per 12-11 Anthony Route: IM, l tussis, 21:16: [place] Drug Form: Charlie acel (Tdap) 00 INJ, kg, 5 units-2.5 ONCE, units-18.5 Start mcg/0.5 mL date: intramuscul 12/11/12 ar 16:16:00, suspensio Stop date: 12/11/12 16:16:00 Immunizations Ordered Immunization Filled Immunization Date Status Commen ts Source Name Name influenza virus 2018-06-30 Completed [facility] vaccine, inactivated 22:24:00 Celine [place] pneumococcal 2018-06-04 Completed [facility] 23-valent vaccine 21:35:00 Charlie diphtheria/pertussis 2012-12-11 Completed Moshe rial , acel/tetanus adult 21:32:00 Herm urban diphtheria/pertussis 2012-12-11 Completed Moshe rial , acel/tetanus adult 21:32:00 Celine duggan Vital Signs Vital Name Observation Time Observation Value Comments Source Temperature Oral (F) 2018-06-30 20:57:00 97.2 F [facility] Charlie Heart Rate 2018-06-30 20:57:00 [facility] Charlie Respitory Rate 2018-06-30 20:57:[address] Systolic (mm Hg) 2018-06-30 20:57:[address] Mos[address] [place] [facility] Diastolic (mm Hg) 2018-06-30 20:57:[address] Temperature Oral (F) 2018-06-30 19:18:00 97.1 F [facility] Heart Rate 2018-06-30 19:18:00 [facility] [place] Respitory Rate 2018-06-30 19:18:00 Memori al [place] Systolic (mm Hg) 2018-06-30 19:18:00 Moshe rial [place] Diastolic (mm Hg) 2018-06-30 19:18:00 Mem orial [place] Systolic (mm Hg) 2018-06-30 13:03:[address] [place] [facility] Diastolic (mm Hg) 2018-06-30 13:03:00 Mem orial [place] Heart Rate 2018-06-30 13:03:00 [facility] [place] Temperature Oral (F) 2018-06-30 13:03:00 97.4 F [facility] [place] Respitory Rate 2018-06-30 13:03:00 Memori al [place] BMI Calculated 2018-06-30 04:35:00 Memori al [place] Height 2018-06-30 04:35:00 154.94 cm [facility] [place] Weight 2018-06-30 04:35:[address] [facility] [address] BMI Calculated 2018-06-30 01:19:00 Memori al [place] Weight 2018-06-30 01:19:00 [facility] [place] Height 2018-06-30 01:19:00 154.94 cm [facility] [place] Systolic (mm Hg) 2018-06-07 21:00:00 Moshe rial [place] Diastolic (mm Hg) 2018-06-07 21:00:00 Mem orial [place] Temperature Oral (F) 2018-06-07 21:00:00 98.[address] [facility] Systolic (mm Hg) 2018-06-07 19:00:00 Moshe rial [place] [facility] Diastolic (mm Hg) 2018-06-07 19:00:[address] [facility] [address] [place] [facility] Systolic (mm Hg) 2018-06-07 18:00:00 Moshe rial [place] [facility] Diastolic (mm Hg) 2018-06-07 18:00:00 Mem orial [place] Temperature Oral (F) 2018-06-07 17:00:00 97.6 F [facility] Temperature Oral (F) 2018-06-07 13:00:00 97.6 F [facility] Respitory Rate 2018-06-07 11:00:[address] [facility] [facility] Respitory Rate 2018-06-07 09:00:[address] [facility] [address] [place] [facility] Respitory Rate 2018-06-07 07:00:[address] [facility] BMI Calculated 2018-06-05 09:08:00 Memori al [place] Height 2018-06-05 09:08:00 154.94 cm [facility] [address] Weight 2018-06-05 09:08:00 [facility] [place] Height 2018-06-05 02:47:00 154.94 [address] [facility] BMI Calculated 2018-06-05 02:47:[address] [facility] [address] [facility] Weight 2018-06-05 02:47:[address] [facility] [address] Heart Rate 2018-06-05 02:47:[address] [facility] [place] [facility] Systolic (mm Hg) 2018-06-04 19:00:00 Moshe rial Charlie Diastolic (mm Hg) 2018-06-04 19:00:[address] [place] [facility] Systolic (mm Hg) 2018-06-04 18:00:00 Moshe rial [place] Diastolic (mm Hg) 2018-06-04 18:00:00 Mem orial [place] Temperature Oral (F) 2018-06-04 17:10:00 99.4 F [facility] [place] Systolic (mm Hg) 2018-06-04 17:00:00 Moshe rial [place] Diastolic (mm Hg) 2018-06-04 17:00:00 Mem orial [place] Temperature Oral (F) 2018-06-04 16:12:00 99.[address] F [facility] Temperature Oral (F) 2018-06-04 13:07:00 98.2 F [facility] Respitory Rate 2018-06-04 10:30:00 Memori al [place] Respitory Rate 2018-06-04 08:00:00 Memori al [place] Respitory Rate 2018-06-04 07:00:[address] [facility] Heart Rate 2018-06-01 09:02:00 [facility] [place] Height 2018-06-01 09:02:00 154.[address] [facility] BMI Calculated 2018-06-01 09:02:[address] [facility] [place] [facility] Weight 2018-06-01 09:02:[address] [facility] [place] [facility] Systolic (mm Hg) 2014-02-24 16:37:00 Moshe rial [place] [facility] Diastolic (mm Hg) 2014-02-24 16:37:[address] [place] [address] Respitory Rate 2014-02-24 16:37:[address] [facility] Heart Rate 2014-02-24 16:37:[address] [facility] [place] [address] Temperature Oral (F) 2014-02-24 16:37:00 98.5 F [facility] Height 2014-02-24 16:37:00 154.94 cm [facility] [place] BMI Calculated 2014-02-24 16:37:00 Memori al [place] Weight 2014-02-24 16:37:00 [facility] [place] Heart Rate 2014-02-18 02:09:[address] [facility] [place] [address] Diastolic (mm Hg) 2014-02-18 02:09:00 Mem orial [place] Systolic (mm Hg) 2014-02-18 02:09:[address] Mos[address] [place] [facility] Respitory Rate 2014-02-18 02:09:00 Memori al [place] Temperature Oral (F) 2014-02-18 02:09:00 97.8 F [facility] [place] Temperature Oral (F) 2014-02-18 00:25:00 97.9 F [facility] Heart Rate 2014-02-18 00:25:00 [facility] [place] Systolic (mm Hg) 2014-02-18 00:25:00 Moshe rial [place] Diastolic (mm Hg) 2014-02-18 00:25:[address] [facility] [address] Respitory Rate 2014-02-18 00:25:[address] [place] [address] Height 2014-02-17 22:18:00 154.94 cm [facility] BMI Calculated 2014-02-17 22:18:00 Memori al [place] Weight 2014-02-17 22:18:00 [facility] [place] Systolic (mm Hg) 2014-02-17 22:18:00 Mos[address] [facility] Respitory Rate 2014-02-17 22:18:00 Memori al [place] Temperature Oral (F) 2014-02-17 22:18:00 98.7 F [facility] Heart Rate 2014-02-17 22:18:00 [facility] [place] Diastolic (mm Hg) 2014-02-17 22:18:00 Mem orial [place] Respitory Rate 2014-02-14 21:52:00 Memori al [place] Systolic (mm Hg) 2014-02-14 21:52:00 Moshe rial [place] Heart Rate 2014-02-14 21:52:[address] [facility] [place] [address] Diastolic (mm Hg) 2014-02-14 21:52:00 Mem orial [place] Temperature Oral (F) 2014-02-14 21:52:00 98.6 F [facility] [place] Temperature Oral (F) 2014-02-14 13:39:00 98.8 F [facility] Diastolic (mm Hg) 2014-02-14 13:39:00 Mem orial [place] Respitory Rate 2014-02-14 13:39:[address] [facility] [address] Heart Rate 2014-02-14 13:39:00 [facility] [place] Systolic (mm Hg) 2014-02-14 13:39:00 Moshe rial [place] Respitory Rate 2014-02-14 09:31:00 Memori al [place] Systolic (mm Hg) 2014-02-14 09:31:[address] Mos[address] [place] [facility] Diastolic (mm Hg) 2014-02-14 09:31:00 Mem orial [place] Temperature Oral (F) 2014-02-14 09:31:00 98.2 F [facility] Heart Rate 2014-02-14 09:31:[address] [facility] [address] BMI Calculated 2014-02-11 06:57:00 Memori al [place] Height 2014-02-11 06:57:00 154.94 cm [facility] Weight 2014-02-11 06:57:[address] [facility] [place] [address] Weight 2014-02-10 12:58:[address] [facility] [address] BMI Calculated 2014-02-10 12:58:00 Memori al [place] Height 2014-02-10 12:58:00 154.94 cm [facility] [place] Diastolic (mm Hg) 2013-04-27 15:16:[address] [place] [address] Systolic (mm Hg) 2013-04-27 15:16:00 Mos[facility] rial [place] [facility] Respitory Rate 2013-04-27 15:16:00 Memori al [place] Systolic (mm Hg) 2013-04-27 14:30:00 Moshe rial [place] Diastolic (mm Hg) 2013-04-27 14:30:00 Mem orial [place] Respitory Rate 2013-04-27 14:30:[address] [place] [address] Systolic (mm Hg) 2013-04-27 14:15:00 Moshe rial [place] Diastolic (mm Hg) 2013-04-27 14:15:00 Mem orial [place] Respitory Rate 2013-04-27 14:15:00 Memori al [place] Heart Rate 2013-04-27 11:55:00 [facility] [place] Weight 2013-04-27 11:41:[address] [facility] [place] [address] Height 2013-04-27 11:41:00 154.94 cm [facility] Weight 2013-04-26 15:06:[address] Height 2013-04-26 15:06:00 154.94 cm [facility] Height 2013-01-02 15:53:00 154.[address] Weight 2013-01-02 15:53:00 [facility] Procedures Procedure Date / Time Performed Performing Clinician [facility] e Arm repair [facility] [place] [facility] Arm repair [facility] Encounters Start End Encounter Admission Attending Care Care Encounter Source Date/Time Date/Time Type Type Clinicians Facility Department ID 2021-10-09 Outpatient STLMLC STLMLC [id number] Common 14:32:21 [facility] 2020-10-17 2020-10-17 Outpatient Carter_C VFP VFP [id number] [facility] 01:28:00 01:28:00 [id number] Family Practic e 2018-06-30 2018-07-01 Observatio Formerly [facility] [id number] Memoria 01:10:00 01:30:00 n kam Charlie 09 [facility] 2018-06-29 2018-06-30 Outpatient [facility] [id number] 20:10:00 20:30:00 Cordell Leola Dion 2018-06-05 2018-06-07 Bedded [facility]ly [facility] [id number] Memoria 02:46:00 22:35:00 Outpatient r Charlie 08 [facility] 2018-06-04 2018-06-07 Outpatient [facility] [id number] 21:46:00 17:35:00 Abdulaziz lozada 2018-06-01 2018-06-04 [facility] [id number] Memoria 08:55:00 22:30:[address] 07 [facility] 2018-06-01 2018-06-04 Outpatient [facility] [id number] 03:55:00 17:30:00 wLorena 2014-02-24 2014-02-25 Outpatient nullFlavo [facility] [id number] Memoria 15:30:00 04:59:[address] 2014-02-24 2014-02-24 Outpatient April, 2.16.840. 2.16.840.1. 4 [id number] 10:30:00 23:59:00 Akil S [id number]. [id number] 3.615.0.1 5.0.870 10 2577-06-06 2014-02-18 nullFlavo [facility] [id number] Memoria 22:10:00 02:11:00 Emergency r [address] 2014-02-17 2014-02-17 Outpatient Cassia Brice 2.16.840. 2.16.840.1. [id number] 17:10:00 21:11:00 [id number] 04 3.615.0.1 5.0.057 85 3452-05-30 2014-02-14 Inpatient Formerly [facility] [id number] Memoria 12:17:00 23:57:[address] 2014-02-10 2014-02-14 Outpatient Poddanilo, 2.16.840. 2.16.840.1. 4 [id number] 07:17:00 18:57:00 Marie [id number]. [id number] 03 Francheska 3.615.0.1 5.0.766 91 2589-08-14 2013-04-27 DS nullFlavo [facility] [id number] Memoria 06:00:00 23:59:00 r Medical 02 [facility] 2013-01-02 2013-01-02 Emergency nullFlavo [facility] [id number] Memoria 10:44:00 14:20:00 r Medical 01 [facility] 2012-12-11 2012-12-27 Inpatient nullFlavo [facility] [id number] Memoria 18:06:00 17:42:00 r Medical 00 [facility] Results Test Description Test Time Test Comments Results Result Comments Source CARDIAC ENZYMES 2018-06-30 14:04:00 Test Item Value Reference Range Interpretation Comme nts Troponin-I (test code = no gt See_Comment [Au tomated message] The system Troponin-I) which generated this result transmitted ref erence range: <=0.40. The ref erence range was not used to interpr et this result as normal/abnormal . [facility]NSPAXXD9678-75-77 08:32:00 Test Item Value Reference Range Interpretation Comments Troponin-I (test code no gt See_Comment [Auto mated message] The = Troponin-I) system which g enerated this result transmit iva reference range : <=0.40. The reference r jennifer was not used to interpr et this result as toro l/abnormal. [facility]XhxmuloIGOAEIIJSU5633-43-15 08:32:00 Test Item Value Reference Range Interpretation Comments WBC (test code = WBC) 7.9 3.7-10.4 [facility] CenterFhdsjvgZKBFDSWEXT6230-55-31 08:32:00 Test Item Value Reference Range Interpretation Comments Hct (test code = Hct) 28.4 36.0-48.0 [facility] HospitalQpoqugvUIVLBCWNLO6141-46-84 08:32:00 Test Item Value Reference Range Interpretation Comments RBC (test code = RBC) 3.08 4.20-5.40 [facility] HospitalZxeaxpiVKKMZYTYUD3461-44-22 08:32:00 Test Item Value Reference Range Interpretation Comments Hgb (test code = Hgb) 9.6 12.0-16.0 [facility] HospitalYkulzcsWEVCDHWXNP4752-88-08 08:32:00 Test Item Value Reference Range Interpretation Comments MCV (test code = MCV) 92.2 80.0-98.0 [facility] HospitalLsbhhgaEEPQIAMJNA3642-79-82 08:32:00 Test Item Value Reference Range Interpretation Comments RDW (test code = RDW) 14.2 11.5-14.5 [facility] HospitalOvrwipjLOOMQSBGXO2120-34-66 08:32:00 Test Item Value Reference Range Interpretation Comments MCH (test code = MCH) 31.3 pg 27.0-31.0 [facility] HospitalZhqtgxmAEWCWBTUCA7857-78-06 08:32:00 Test Item Value Reference Range Interpretation Comments MCHC (test code = MCHC) 34.0 32.0-36.0 [facility] HospitalQvwuohvQESLKDHYXB8505-49-55 08:32:00 Test Item Value Reference Range Interpretation Comments MPV (test code = MPV) 8.0 7.4-10.4 [facility]WmvvmkqYKHNRAGJEB8505-05-36 08:32:00 Test Item Value Reference Range Interpretation Comments Platelet (test code = Platelet) 227 133-450 [facility] HospitalUkrrqnhEBAADAPYGZ9067-76-18 08:32:00 Test Item Value Reference Range Interpretation Comments D-Dimer (test code = D-Dimer) 2.36 [facility] CenterTukghhaLVIBGF3393-54-76 08:32:00 Test Item Value Reference Range Interpretation Comments HDL (test code = HDL) 38 [facility] CenterWfkkwiwSIGVAS8729-33-39 08:32:00 Test Item Value Reference Range Interpretation Comments LDL (Calculated) (test code = LDL 68 (Calculated)) [facility]aleLdhhirtWQJRLS3318-27-52 08:32:00 Test Item Value Reference Range Interpretation Comments VLDL (test code = VLDL) 59 1 [facility] CenterBasbclhJUFFYK8093-96-27 08:32:00 Test Item Value Reference Range Interpretation Comments Trig (test code = Trig) 297 [facility] CenterJbphztxOAVTOT8188-79-25 08:32:00 Test Item Value Reference Range Interpretation Comments Chol (test code = Chol) 165 [facility] CenterGifbesfZQECST6010-64-81 08:32:00 Test Item Value Reference Range Interpretation Comments CHD Risk (test code = CHD Risk) 4.34 1 3.90-5.80 [facility]aleCARDIAC SDKLEDR4253-14-14 02:03:00 Test Item Value Reference Range Interpretation Comments Troponin-I (test code no gt See_Comment [Auto mated message] The = Troponin-I) system which g enerated this result transmit iva reference range : <=0.40. The reference r jennifer was not used to interpr et this result as toro l/abnormal. [facility] CenterPnfvioxBRNRWHWVBHDJ7116-34-83 02:03:00 Test Item Value Reference Range Interpretation Comments AGAP (test code = AGAP) 15.0 10.0-20.0 [facility]EyhecvlLUOJLTQSEICZ6347-10-69 02:03:00 Test Item Value Reference Range Interpretation Comments eGFR (test code = eGFR) 77 [facility] CampusWyqdzxgTQJQMLNHNZMF0126-47-51 02:03:00 Test Item Value Reference Range Interpretation Comments BUN (test code = BUN) 19 7-22 [facility]AnsautiCCIXLPPIIYUD7586-61-88 02:03:00 Test Item Value Reference Range Interpretation Comments Creatinine Lvl (test code = Creatinine 0.81 0.50-1.40 Lvl) [facility] HospitalJgnifddBHPYEELIMFNR8887-12-96 02:03:00 Test Item Value Reference Range Interpretation Comments Potassium Lvl (test code = Potassium 4.0 3.5-5.1 Lvl) [facility] HospitalKliacruOQDUCHAOHCPV1259-72-88 02:03:00 Test Item Value Reference Range Interpretation Comments Sodium Lvl (test code = Sodium Lvl) 140 135-145 [facility] HospitalLsjwvepWRARYDMUWWSH4278-06-72 02:03:00 Test Item Value Reference Range Interpretation Comments Glucose Lvl (test code = Glucose Lvl) 218 70-99 [facility] HospitalVnusgowSMMQDXQRYZNQ1573-52-82 02:03:00 Test Item Value Reference Range Interpretation Comments Calcium Lvl (test code = Calcium Lvl) 9.1 8.5-10.5 [facility] HospitalXspbamjRIAEAJTBTOYR8942-75-81 02:03:00 Test Item Value Reference Range Interpretation Comments Chloride Lvl (test code = Chloride Lvl) 103 95-109 [facility] HospitalKphhvabVZOFUKPUYMDD2465-81-28 02:03:00 Test Item Value Reference Range Interpretation Comments CO2 (test code = CO2) 26 24-32 [facility] CenterLikrgerBEKROQXIWU8045-07-30 02:03:00 Test Item Value Reference Range Interpretation Comments MPV (test code = MPV) 7.7 7.4-10.4 [facility] CenterLiqphmmBCIPWRZABP3473-04-23 02:03:00 Test Item Value Reference Range Interpretation Comments Platelet (test code = Platelet) 265 133-450 [facility] CenterIqyvqnwVFXMNVUBLG0248-52-40 02:03:00 Test Item Value Reference Range Interpretation Comments RDW (test code = RDW) 14.5 11.5-14.5 [facility] CenterZyabvcvYSWYXYKXOP2057-94-93 02:03:00 Test Item Value Reference Range Interpretation Comments MCHC (test code = MCHC) 33.3 32.0-36.0 [facility] CenterEuapjcoSSHKKCIUKC4421-67-57 02:03:00 Test Item Value Reference Range Interpretation Comments MCH (test code = MCH) 30.5 pg 27.0-31.0 [facility] CenterZpwqlumXMBWAFXDFW5313-15-63 02:03:00 Test Item Value Reference Range Interpretation Comments MCV (test code = MCV) 91.7 80.0-98.0 [facility] CenterKtxhqjyQBRGRXXRTH2419-57-99 02:03:00 Test Item Value Reference Range Interpretation Comments Hgb (test code = Hgb) 10.3 12.0-16.0 [facility] CenterIluabfeVBHHUMNWMK3368-98-85 02:03:00 Test Item Value Reference Range Interpretation Comments RBC (test code = RBC) 3.39 4.20-5.40 [facility] CenterXhmuxtsBMZWAYRMUJ2338-43-01 02:03:00 Test Item Value Reference Range Interpretation Comments Hct (test code = Hct) 31.1 36.0-48.0 [facility] CenterIkikyypRQODUDSRRH3801-36-99 02:03:00 Test Item Value Reference Range Interpretation Comments WBC (test code = WBC) 11.6 3.7-10.4 [facility] CenterEmnurbgIWMOXDRBLL3633-38-35 02:03:00 Test Item Value Reference Range Interpretation Comments Monocytes # (test code 0.7 See_Comment [Aut omated message] The = Monocytes #) system which generated this result tra nsmitted reference range : <=0.8. The reference r jennifer was not used to int erpret this result as normal/abnormal . [facility] CenterJndyxhwIUUEMRNAZH3644-42-42 02:03:00 Test Item Value Reference Range Interpretation Comments Eosinophils # (test code 0.1 See_Comment [A utomated message] The = Eosinophils #) system whic h generated this result tra nsmitted reference range : <=0.5. The reference r jennifer was not used to int erpret this result as normal/abnormal . [facility] CenterWxhbnskWLSSMKDLVS0890-51-41 02:03:00 Test Item Value Reference Range Interpretation Comments Lymphocytes # (test code = Lymphocytes 2.5 1.0-5.5 #) [facility] CenterMdhddeiEZBXXOJUZR5886-38-81 02:03:00 Test Item Value Reference Range Interpretation Comments Basophils # (test code 0.1 See_Comment [Aut omated message] The = Basophils #) system which generated this result tra nsmitted reference range : <=0.2. The reference r jennifer was not used to int erpret this result as normal/abnormal . [facility] CenterBwxkbjpPYLAURTDFC7789-02-27 02:03:00 Test Item Value Reference Range Interpretation Comments Neutrophils # (test code = Neutrophils 8.2 1.5-8.1 #) [facility] CenterQtfmrxzDMQSCWPEUY7587-63-38 02:03:00 Test Item Value Reference Range Interpretation Comments Monocytes (test code = Monocytes) 6.4 2.0-12.0 [facility] CenterVykolevLFDBZROQQX8534-04-78 02:03:00 Test Item Value Reference Range Interpretation Comments Basophils (test code = 0.8 See_Comment [Aut omated message] The Basophils) system which ge nerated this result tra nsmitted reference range : <=1.0. The reference r jennifer was not used to int erpret this result as normal/abnormal . [facility] CenterTylgqhhAHIHKWBWNH1327-16-39 02:03:00 Test Item Value Reference Range Interpretation Comments Lymphocytes (test code = Lymphocytes) 21.3 20.0-40.0 [facility] CenterCvkafsdSQKJKUXEJK7155-82-56 02:03:00 Test Item Value Reference Range Interpretation Comments Segs (test code = Segs) 70.5 45.0-75.0 [facility] CenterJaffxycTDMOIQRJNL9838-00-38 02:03:00 Test Item Value Reference Range Interpretation Comments Eosinophils (test code = 1.0 See_Comment [A utomated message] The Eosinophils) system which ge nerated this result tra nsmitted reference range : <=4.0. The reference r jennifer was not used to int erpret this result as normal/abnormal . [facility] CenterKbuphoiLKYTTJXFRP9424-51-50 10:06:00 Test Item Value Reference Range Interpretation Comments Hct (test code = Hct) 25.9 36.0-48.0 [facility] CenterPmvhtcxZZXGLIOXZT4175-61-23 10:06:00 Test Item Value Reference Range Interpretation Comments Lymphocytes (test code = Lymphocytes) 29.1 20.0-40.0 [facility] CenterVawrynkPVRZHVCUST0971-72-39 10:06:00 Test Item Value Reference Range Interpretation Comments Segs (test code = Segs) 59.2 45.0-75.0 [facility] CenterUdszhfeVZDSMHSZQM3339-18-40 10:06:00 Test Item Value Reference Range Interpretation Comments Monocytes (test code = Monocytes) 8.4 2.0-12.0 [facility] CenterIaczftjBDMRENUKGF2918-46-96 10:06:00 Test Item Value Reference Range Interpretation Comments Neutrophils # (test code = Neutrophils 7.3 1.5-8.1 #) [facility] CenterEcqzgpmMSUQASCHLQ6402-83-49 10:06:00 Test Item Value Reference Range Interpretation Comments Basophils (test code = 0.7 See_Comment [Aut omated message] The Basophils) system which ge nerated this result tra nsmitted reference range : <=1.0. The reference r jennifer was not used to int erpret this result as normal/abnormal . [facility] CenterDrirckhWZLGLYXILL8535-27-13 10:06:00 Test Item Value Reference Range Interpretation Comments Eosinophils (test code = 2.6 See_Comment [A utomated message] The Eosinophils) system which ge nerated this result tra nsmitted reference range : <=4.0. The reference r jennifer was not used to int erpret this result as normal/abnormal . [facility] CenterXptcwycGAJTWCACZW1654-24-92 10:06:00 Test Item Value Reference Range Interpretation Comments Lymphocytes # (test code = Lymphocytes 3.6 1.0-5.5 #) [facility] CenterLgyrexoYXOEPOXLOG7210-52-16 10:06:00 Test Item Value Reference Range Interpretation Comments Monocytes # (test code 1.0 See_Comment [Aut omated message] The = Monocytes #) system which generated this result tra nsmitted reference range : <=0.8. The reference r jennifer was not used to int erpret this result as normal/abnormal . [facility] CenterSrmaqouZKGKFZTLOR1184-45-35 10:06:00 Test Item Value Reference Range Interpretation Comments Basophils # (test code 0.1 See_Comment [Aut omated message] The = Basophils #) system which generated this result tra nsmitted reference range : <=0.2. The reference r jennifer was not used to int erpret this result as normal/abnormal . [facility] CenterMrheyrqYSEXEZOBUY4718-19-11 10:06:00 Test Item Value Reference Range Interpretation Comments Eosinophils # (test code 0.3 See_Comment [A utomated message] The = Eosinophils #) system whic h generated this result tra nsmitted reference range : <=0.5. The reference r jennifer was not used to int erpret this result as normal/abnormal . [facility]2018-09-21 10:06:00 Test Item Value Reference Range Interpretation Comments eGFR (test code = eGFR) 94 [facility]2018-09-21 10:06:00 Test Item Value Reference Range Interpretation Comments Chloride Lvl (test code = Chloride Lvl) 100 95-109 [facility]2018-09-21 10:06:00 Test Item Value Reference Range Interpretation Comments Potassium Lvl (test code = Potassium 4.6 3.5-5.1 Lvl) [facility]2018-09-21 10:06:00 Test Item Value Reference Range Interpretation Comments CO2 (test code = CO2) 27 24-32 [facility]2018-09-21 10:06:00 Test Item Value Reference Range Interpretation Comments Calcium Lvl (test code = Calcium Lvl) 9.2 8.5-10.5 [facility]2018-09-21 10:06:00 Test Item Value Reference Range Interpretation Comments Creatinine Lvl (test code = Creatinine 0.66 0.50-1.40 Lvl) [facility]2018-09-21 10:06:00 Test Item Value Reference Range Interpretation Comments Glucose Lvl (test code = Glucose Lvl) 148 70-99 [facility]2018-09-21 10:06:00 Test Item Value Reference Range Interpretation Comments BUN (test code = BUN) 13 7-22 [facility]2018-09-21 10:06:00 Test Item Value Reference Range Interpretation Comments Sodium Lvl (test code = Sodium Lvl) 135 135-145 [facility]2018-09-21 10:06:00 Test Item Value Reference Range Interpretation Comments AGAP (test code = AGAP) 12.6 10.0-20.0 [facility] CenterLhcziqaHGDXDHZIRH9593-89-59 10:06:00 Test Item Value Reference Range Interpretation Comments MPV (test code = MPV) 8.1 7.4-10.4 [facility] CenterNkikhgcUBRPCCTSGP9867-66-00 10:06:00 Test Item Value Reference Range Interpretation Comments Platelet (test code = Platelet) 404 133-450 [facility] CenterEhtoqbxVSCUBSXXXQ9184-88-77 10:06:00 Test Item Value Reference Range Interpretation Comments RDW (test code = RDW) 14.3 11.5-14.5 [facility] CenterKdptwwqHOACHGBPOG6741-72-72 10:06:00 Test Item Value Reference Range Interpretation Comments MCH (test code = MCH) 32.0 pg 27.0-31.0 [facility] CenterCzzudsqKXFSUBFOFU4092-73-51 10:06:00 Test Item Value Reference Range Interpretation Comments MCHC (test code = MCHC) 34.1 32.0-36.0 [facility] CenterVtvtfqaSKNWVQNCGC0342-87-82 10:06:00 Test Item Value Reference Range Interpretation Comments MCV (test code = MCV) 93.7 80.0-98.0 [facility] CenterVigttkzZAFURWXBLQ4300-00-38 10:06:00 Test Item Value Reference Range Interpretation Comments WBC (test code = WBC) 12.3 3.7-10.4 [facility] CenterHkvlzghFUISZCJFQF9176-50-04 10:06:00 Test Item Value Reference Range Interpretation Comments RBC (test code = RBC) 2.76 4.20-5.40 [facility] CenterTwjwdotPUIYDVSDAR9734-45-72 10:06:00 Test Item Value Reference Range Interpretation Comments Hgb (test code = Hgb) 8.8 12.0-16.0 [facility]2018-09-20 05:20:00 Test Item Value Reference Range Interpretation Comments eGFR (test code = eGFR) 95 [facility]2018-09-20 05:20:00 Test Item Value Reference Range Interpretation Comments Creatinine Lvl (test code = Creatinine 0.64 0.50-1.40 Lvl) [facility]2018-09-20 05:20:00 Test Item Value Reference Range Interpretation Comments Chloride Lvl (test code = Chloride Lvl) 99 95-109 [facility]2018-09-20 05:20:00 Test Item Value Reference Range Interpretation Comments CO2 (test code = CO2) 28 24-32 [facility]2018-09-20 05:20:00 Test Item Value Reference Range Interpretation Comments Sodium Lvl (test code = Sodium Lvl) 137 135-145 [facility]2018-09-20 05:20:00 Test Item Value Reference Range Interpretation Comments Potassium Lvl (test code = Potassium 3.8 3.5-5.1 Lvl) [facility]2018-09-20 05:20:00 Test Item Value Reference Range Interpretation Comments BUN (test code = BUN) 12 7-22 [facility]2018-09-20 05:20:00 Test Item Value Reference Range Interpretation Comments Glucose Lvl (test code = Glucose Lvl) 134 70-99 [facility]2018-09-20 05:20:00 Test Item Value Reference Range Interpretation Comments Calcium Lvl (test code = Calcium Lvl) 8.2 8.5-10.5 [facility]2018-09-20 05:20:00 Test Item Value Reference Range Interpretation Comments AGAP (test code = AGAP) 13.8 10.0-20.0 [facility] CenterHbzochqOVOQCWWMYS4781-10-57 05:20:00 Test Item Value Reference Range Interpretation Comments Monocytes # (test code 0.7 See_Comment [Aut omated message] The = Monocytes #) system which generated this result tra nsmitted reference range : <=0.8. The reference r jennifer was not used to int erpret this result as normal/abnormal . [facility] CenterTpljrkgIXKNZLCVTO2371-98-98 05:20:00 Test Item Value Reference Range Interpretation Comments Eosinophils # (test code 0.2 See_Comment [A utomated message] The = Eosinophils #) system wh h generated this result tra nsmitted reference range : <=0.5. The reference r jennifer was not used to int erpret this result as normal/abnormal . [facility] CenterAiqlqvoCKTIUGZXDF9679-66-54 05:20:00 Test Item Value Reference Range Interpretation Comments Neutrophils # (test code = Neutrophils 5.0 1.5-8.1 #) [facility] CenterCgzzsssKELPOHSJQM1548-39-30 05:20:00 Test Item Value Reference Range Interpretation Comments Lymphocytes # (test code = Lymphocytes 2.4 1.0-5.5 #) [facility] CenterBukzavlDOJLHNGRZB0046-86-28 05:20:00 Test Item Value Reference Range Interpretation Comments Basophils (test code = 0.5 See_Comment [Aut omated message] The Basophils) system which ge nerated this result tra nsmitted reference range : <=1.0. The reference r jennifer was not used to int erpret this result as normal/abnormal . [facility] CenterTxviaccJKLGZACMTL7647-77-67 05:20:00 Test Item Value Reference Range Interpretation Comments Monocytes (test code = Monocytes) 8.9 2.0-12.0 [facility] CenterIdmtdpkEOOGHSUTEZ0106-34-00 05:20:00 Test Item Value Reference Range Interpretation Comments Eosinophils (test code = 2.2 See_Comment [A utomated message] The Eosinophils) system which ge nerated this result tra nsmitted reference range : <=4.0. The reference r jennifer was not used to int erpret this result as normal/abnormal . [facility] CenterFjvtodgQDKKHZPXXS0440-05-96 05:20:00 Test Item Value Reference Range Interpretation Comments Segs (test code = Segs) 59.4 45.0-75.0 [facility] CenterTqvkqzbMWUSLLQZQU2280-89-33 05:20:00 Test Item Value Reference Range Interpretation Comments Lymphocytes (test code = Lymphocytes) 29.0 20.0-40.0 [facility] CenterNdjxijrZMPFNBGWLZ6190-02-50 05:20:00 Test Item Value Reference Range Interpretation Comments MPV (test code = MPV) 7.9 7.4-10.4 [facility] CenterHfknoqdEDQYNKIEIN0563-32-52 05:20:00 Test Item Value Reference Range Interpretation Comments Platelet (test code = Platelet) 335 133-450 [facility] CenterKgtprykPRSNRKBJWN9565-50-20 05:20:00 Test Item Value Reference Range Interpretation Comments RDW (test code = RDW) 14.2 11.5-14.5 [facility] CenterYhbnqofXUVTYDAPKT7523-61-08 05:20:00 Test Item Value Reference Range Interpretation Comments MCH (test code = MCH) 32.3 pg 27.0-31.0 [facility] CenterRqwtufsXYPQIGNAUH1620-57-34 05:20:00 Test Item Value Reference Range Interpretation Comments MCHC (test code = MCHC) 34.6 32.0-36.0 [facility] CenterWrrfxnuOQSRSUGHMA9112-78-09 05:20:00 Test Item Value Reference Range Interpretation Comments MCV (test code = MCV) 93.3 80.0-98.0 [facility] CenterTtblrjgMPEGWRIMUV9395-16-72 05:20:00 Test Item Value Reference Range Interpretation Comments Hgb (test code = Hgb) 7.9 12.0-16.0 [facility] CenterUwexwqoJUIYEHQFGI6402-52-85 05:20:00 Test Item Value Reference Range Interpretation Comments Hct (test code = Hct) 22.7 36.0-48.0 [facility] CenterQmylvagJXFTSXWDAY6790-34-28 05:20:00 Test Item Value Reference Range Interpretation Comments WBC (test code = WBC) 8.4 3.7-10.4 [facility] CenterDzqdogpJFGARFQBDM3922-44-46 05:20:00 Test Item Value Reference Range Interpretation Comments RBC (test code = RBC) 2.43 4.20-5.40 [facility] KHWXKXIUH8299-07-74 05:20:00 Test Item Value Reference Range Interpretation Comments Hgb A1C (test code = Hgb A1C) 9.3 [facility]CHE[facility] KWQVN9633-90-41 08:34:00 Test Item Value Reference Range Interpretation Comments Magnesium Lvl (test code = Magnesium 2.6 1.8-2.4 Lvl) [facility]aleIpeibxzCEUTDUJPMG4240-35-78 08:34:00 Test Item Value Reference Range Interpretation Comments RDW (test code = RDW) 14.4 11.5-14.5 [facility] CenterNdxmxbhPSWGYLIQMC1922-82-48 08:34:00 Test Item Value Reference Range Interpretation Comments MCHC (test code = MCHC) 34.0 32.0-36.0 [facility]NjypfozCMFTJZEJXF1988-55-62 08:34:00 Test Item Value Reference Range Interpretation Comments MCH (test code = MCH) 31.8 pg 27.0-31.0 [facility]aleKbivtvxGRYNSDNKEA9850-42-11 08:34:00 Test Item Value Reference Range Interpretation Comments MPV (test code = MPV) 8.3 7.4-10.4 [facility]valeZujmdalEVKHMNVKYL5151-37-22 08:34:00 Test Item Value Reference Range Interpretation Comments Platelet (test code = Platelet) 422 133-450 [facility]KgcprvjSEFCWZJEHD5466-[facility]-00 08:34:00 Test Item Value Reference Range Interpretation Comments Hgb (test code = Hgb) 9.7 12.0-16.0 [facility]XzxqiepMXFRZLFADB6144-21-19 08:34:00 Test Item Value Reference Range Interpretation Comments RBC (test code = RBC) 3.06 4.20-5.40 [facility]aleXlgjnqfOCLUYDYTSU7447-34-23 08:34:00 Test Item Value Reference Range Interpretation Comments MCV (test code = MCV) 93.4 80.0-98.0 [facility]MdmxupxIUBUQVAVFK7221-64-40 08:34:00 Test Item Value Reference Range Interpretation Comments Hct (test code = Hct) 28.6 36.0-48.0 [facility]aleNhbeyrnMFYTWPBHXJ3326-62-87 08:34:00 Test Item Value Reference Range Interpretation Comments WBC (test code = WBC) 12.2 3.7-10.4 [facility] CenterMdpmdyiEVHQGNIYGG4634-21-04 08:34:00 Test Item Value Reference Range Interpretation Comments Monocytes # (test code 0.6 See_Comment [Aut omated message] The = Monocytes #) system which generated this result tra nsmitted reference range : <=0.8. The reference r jennifer was not used to int erpret this result as normal/abnormal . [facility] CenterRbeyqsuEUPDVHOUMN6763-16-70 08:34:00 Test Item Value Reference Range Interpretation Comments Monocytes (test code = Monocytes) 5.3 2.0-12.0 [facility] CenterHarbsgvEMGVKDDQVX0205-98-98 08:34:00 Test Item Value Reference Range Interpretation Comments Lymphocytes # (test code = Lymphocytes 1.6 1.0-5.5 #) [facility] CenterGuwdftzIKHAKMFOXI5265-57-99 08:34:00 Test Item Value Reference Range Interpretation Comments Neutrophils # (test code = Neutrophils 9.9 1.5-8.1 #) [facility] CenterCfqcchjYWNBPQYOUR4986-52-57 08:34:00 Test Item Value Reference Range Interpretation Comments Basophils (test code = 0.4 See_Comment [Aut omated message] The Basophils) system which ge nerated this result tra nsmitted reference range : <=1.0. The reference r jennifer was not used to int erpret this result as normal/abnormal . [facility] CenterBpsmzsePLMUIQNMTD0807-12-04 08:34:00 Test Item Value Reference Range Interpretation Comments Eosinophils (test code = 0.2 See_Comment [A utomated message] The Eosinophils) system which ge nerated this result tra nsmitted reference range : <=4.0. The reference r jennifer was not used to int erpret this result as normal/abnormal . [facility] CenterNdudyrnUYDKALUAXF1680-27-05 08:34:00 Test Item Value Reference Range Interpretation Comments Segs (test code = Segs) 80.9 45.0-75.0 [facility] CenterZiwdfmyULLWBCRXWG9213-98-68 08:34:00 Test Item Value Reference Range Interpretation Comments Lymphocytes (test code = Lymphocytes) 13.2 20.0-40.0 [facility]aleBACTERIAL - ADQRPZTE3818-14-03 02:06:00 Test Item Value Reference Range Interpretation Comments MRSA by PCR (test Negative (06/01/18 9:06 code = MRSA by PCR) PM) [facility]2018-09-19 02:06:00 Test Item Value Reference Range Interpretation Comments eGFR (test code = eGFR) 74 [facility]2018-09-19 02:06:00 Test Item Value Reference Range Interpretation Comments Chloride Lvl (test code = Chloride Lvl) 101 95-109 [facility]2018-09-19 02:06:00 Test Item Value Reference Range Interpretation Comments B/C Ratio (test code = B/C Ratio) 17 1 6-25 [facility]2018-09-19 02:06:00 Test Item Value Reference Range Interpretation Comments AGAP (test code = AGAP) 16.2 10.0-20.0 [facility]2018-09-19 02:06:00 Test Item Value Reference Range Interpretation Comments CO2 (test code = CO2) 22 24-32 [facility]2018-09-19 02:06:00 Test Item Value Reference Range Interpretation Comments Calcium Lvl (test code = Calcium Lvl) 9.1 8.5-10.5 [facility]2018-09-19 02:06:00 Test Item Value Reference Range Interpretation Comments Potassium Lvl (test code = Potassium 4.2 3.5-5.1 Lvl) [facility]2018-09-19 02:06:00 Test Item Value Reference Range Interpretation Comments Sodium Lvl (test code = Sodium Lvl) 135 135-145 [facility]2018-09-19 02:06:00 Test Item Value Reference Range Interpretation Comments Glucose Lvl (test code = Glucose Lvl) 286 70-99 [facility]2018-09-19 02:06:00 Test Item Value Reference Range Interpretation Comments BUN (test code = BUN) 14 7-22 [facility]2018-09-19 02:06:00 Test Item Value Reference Range Interpretation Comments Creatinine Lvl (test code = Creatinine 0.84 0.50-1.40 Lvl) [facility]2018-09-19 02:06:00 Test Item Value Reference Range Interpretation Comments Bili Total (test code = Bili Total) 0.5 0.2-1.3 [facility]2018-09-19 02:06:00 Test Item Value Reference Range Interpretation Comments Total Protein (test code = Total 6.4 6.4-8.4 Protein) [facility]2018-09-19 02:06:00 Test Item Value Reference Range Interpretation Comments AST (test code = AST) 23 See_Comment [Auto mated message] The system which ge nerated this result transmit iva reference range : <=37. The reference range was not used to interpr et this result as toro l/abnormal. [facility]2018-09-19 02:06:00 Test Item Value Reference Range Interpretation Comments Globulin (test code = Globulin) 3.2 2.7-4.2 [facility]2018-09-19 02:06:00 Test Item Value Reference Range Interpretation Comments A/G Ratio (test code = A/G Ratio) 1.0 1 0.7-1.6 [facility]2018-09-19 02:06:00 Test Item Value Reference Range Interpretation Comments ALT (test code = ALT) 24 See_Comment [Auto mated message] The system which ge nerated this result transmit iva reference range : <=65. The reference range was not used to interpr et this result as toro l/abnormal. [facility]2018-09-19 02:06:00 Test Item Value Reference Range Interpretation Comments Albumin Lvl (test code = Albumin Lvl) 3.2 3.5-5.0 [facility]2018-09-19 02:06:00 Test Item Value Reference Range Interpretation Comments Alk Phos (test code = Alk Phos) 71 39-136 [facility]2018-09-19 02:06:00 Test Item Value Reference Range Interpretation Comments Phosphorus (test code = Phosphorus) 4.1 2.5-4.5 [facility]2018-09-19 02:06:00 Test Item Value Reference Range Interpretation Comments Magnesium Lvl (test code = Magnesium 1.7 1.8-2.4 Lvl) [facility] CenterUiiihauLCYTCOHLZU9198-51-52 02:06:00 Test Item Value Reference Range Interpretation Comments PTT (test code = PTT) 33.5 s 22.9-35.8 [facility] CenterFgvroxhGHTONPUWTO9833-85-19 02:06:00 Test Item Value Reference Range Interpretation Comments INR (test code = INR) 0.99 1 0.85-1.17 [facility]alePhicnmdLZVVXOQBNI0267-57-27 02:06:00 Test Item Value Reference Range Interpretation Comments PT (test code = PT) 13.1 s 12.0-14.7 [facility]alePARATHYROID ZZPXPKT2706-27-97 02:06:00 Test Item Value Reference Range Interpretation Comments Ca Ion WB (test code = Ca Ion WB) 1.09 1.05-1.25 [facility]RO[facility] HKAAYBC1361-18-04 02:06:00 Test Item Value Reference Range Interpretation Comments Ca Norm WB (test code = Ca Norm WB) 1.03 1.05-1.25 [facility] BANK [id number] 18:33:00 Test Item Value Reference Range Interpretation Comments FFP product (test code Product available = FFP product) (06/01/18 1:33 PM) [facility] [id number] 18:33:00 Test Item Value Reference Range Interpretation Comments RBC product (test code Product available = RBC product) (06/01/18 1:33 PM) [facility]aleCHEM [id number] 10:34:42 Test Item Value Reference Range Interpretation Comments Lactic Acid Lvl (test code = Lactic 1.3 0.5-2.2 Acid Lvl) [facility] CenterCakykjnOCFZWNJJCR6613-10-30 10:34:42 Test Item Value Reference Range Interpretation Comments PTT (test code = PTT) 26.8 s 22.9-35.8 [facility] CenterYucomncHWTDLPHKAC0685-28-77 10:34:42 Test Item Value Reference Range Interpretation Comments PT (test code = PT) 11.2 s 12.0-14.7 [facility] CenterKytfaroGMERNBAGNI1840-57-11 10:34:42 Test Item Value Reference Range Interpretation Comments INR (test code = INR) 0.81 1 0.85-1.17 [facility] [id number] 10:29:00 Test Item Value Reference Range Interpretation Comments AB Int (test code = AB Int) Anti-M [facility] [id number] 10:29:00 Test Item Value Reference Range Interpretation Comments Path AB (test code Blood Bank Physician = Path AB) Service An anti-M antibody is detected in this patient s serum. This antibody is directed against M antigen of the "MNS" blood group system and is a common naturally occurring antibody. Since the antibody is only rarely associated with hemolytic transfusion reactions, it is considered clinically insignificant. Should the patient require RBC transfusion, crossmatch compatible units will be issued. The patient s electronic medical record has been reviewed for relevant information. I have reviewed the test results and concur with the resident, Dr. Dejuan Newman's, interpretation. CPT: 11326-EM [facility] USDS [id number] 10:29:00 Test Item Value Reference Range Interpretation Comments ABO/Rh (test code = ABO/Rh) B POS [facility] USDS [id number] 10:29:00 Test Item Value Reference Range Interpretation Comments Antibody Scrn (test Positive 1(06/01/18 code = Antibody Scrn) 5:29 AM) [facility] USDS [id number] 22:30:00 Test Item Value Reference Range Interpretation Comments Antibody Scrn (test Negative (02/17/14 5:30 code = Antibody Scrn) PM) [facility] USDS [id number] 22:30:00 Test Item Value Reference Range Interpretation Comments ABO/Rh (test code = ABO/Rh) B POS [facility] [place] [id number] 22:30:00 Test Item Value Reference Range Interpretation Comments ALT (test code = ALT) 144 See_Comment [Auto mated message] The system which ge nerated this result transmit iva reference range : <=65. The reference range was not used to interpr et this result as toro l/abnormal. [address] [id number] 22:30:00 Test Item Value Reference Range Interpretation Comments Albumin Lvl (test code = Albumin Lvl) 4.0 3.5-5.0 [facility] [employer]2014-06-06 22:30:00 Test Item Value Reference Range Interpretation Comments Total Protein (test code = Total 7.4 6.4-8.4 Protein) [facility] [employer] [id number] 22:30:00 Test Item Value Reference Range Interpretation Comments Bili Total (test code = Bili Total) 0.5 0.2-1.3 [facility] [employer]2014-06-06 22:30:00 Test Item Value Reference Range Interpretation Comments AST (test code = AST) 23 See_Comment [Auto mated message] The system which ge nerated this result transmit iva reference range : <=37. The reference range was not used to interpr et this result as toro l/abnormal. [facility]2014-06-06 22:30:00 Test Item Value Reference Range Interpretation Comments Alk Phos (test code = Alk Phos) 111 39-136 [facility]2014-06-06 22:30:00 Test Item Value Reference Range Interpretation Comments eGFR (test code = eGFR) 62 [facility]2014-06-06 22:30:00 Test Item Value Reference Range Interpretation Comments Glucose Lvl (test code = Glucose Lvl) 376 70-99 [facility]2014-06-06 22:30:00 Test Item Value Reference Range Interpretation Comments Sodium Lvl (test code = Sodium Lvl) 132 135-145 [facility]2014-06-06 22:30:00 Test Item Value Reference Range Interpretation Comments Creatinine Lvl (test code = Creatinine 1.0 0.5-1.4 Lvl) [facility]2014-06-06 22:30:00 Test Item Value Reference Range Interpretation Comments BUN (test code = BUN) 21 7-22 [facility]2014-06-06 22:30:00 Test Item Value Reference Range Interpretation Comments Calcium Lvl (test code = Calcium Lvl) 9.5 8.5-10.5 [facility]2014-06-06 22:30:00 Test Item Value Reference Range Interpretation Comments CO2 (test code = CO2) 25 24-32 [facility]2014-06-06 22:30:00 Test Item Value Reference Range Interpretation Comments Chloride Lvl (test code = Chloride Lvl) 97 95-109 [facility]2014-06-06 22:30:00 Test Item Value Reference Range Interpretation Comments Potassium Lvl (test code = Potassium 5.0 3.5-5.1 Lvl) [facility]2014-06-06 22:30:00 Test Item Value Reference Range Interpretation Comments Globulin (test code = Globulin) 3.4 2.0-4.0 [facility]2014-06-06 22:30:00 Test Item Value Reference Range Interpretation Comments A/G Ratio (test code = A/G Ratio) 1.2 0.7-1.6 [facility]2014-06-06 22:30:00 Test Item Value Reference Range Interpretation Comments B/C Ratio (test code = B/C Ratio) 21 6-25 [facility]2014-06-06 22:30:00 Test Item Value Reference Range Interpretation Comments AGAP (test code = AGAP) 15.0 10.0-20.0 [facility] [id number] 22:30:00 Test Item Value Reference Range Interpretation Comments Eosinophils # (test code 0.0 See_Comment [A utomated message] The = Eosinophils #) system whic h generated this result tra nsmitted reference range : <=0.5. The reference r jennifer was not used to int erpret this result as normal/abnormal . [facility] [id number] 22:30:00 Test Item Value Reference Range Interpretation Comments Basophils # (test code 0.0 See_Comment [Aut omated message] The = Basophils #) system which generated this result tra nsmitted reference range : <=0.2. The reference r jennifer was not used to int erpret this result as normal/abnormal . [facility] CenterPuaozvvIVXCFAMAOJ0092-74-22 22:30:00 Test Item Value Reference Range Interpretation Comments Monocytes # (test code 0.1 See_Comment [Aut omated message] The = Monocytes #) system which generated this result tra nsmitted reference range : <=0.8. The reference r jennifer was not used to int erpret this result as normal/abnormal . [facility] CenterQfvgajdHFGWYOYRHE6757-41-21 22:30:00 Test Item Value Reference Range Interpretation Comments Segs (test code = Segs) 91.8 45.0-75.0 [facility] CenterHttsevvDUNYRXHSEO2723-22-92 22:30:00 Test Item Value Reference Range Interpretation Comments Monocytes (test code = Monocytes) 0.4 2.0-12.0 [facility] CenterPzdydvwTVKNMICSGC6423-14-66 22:30:00 Test Item Value Reference Range Interpretation Comments Lymphocytes (test code = Lymphocytes) 7.6 20.0-40.0 [facility] CenterNjzwlhuADDBUNNLQA2494-72-86 22:30:00 Test Item Value Reference Range Interpretation Comments RBC Morph (test code = Normal (6/6/14 5:30 PM) RBC Morph) [facility] CenterZrjvgovDVJAOHOTXE4868-94-00 22:30:00 Test Item Value Reference Range Interpretation Comments Plt Morph (test code = Normal (02/17/14 5:30 PM) Plt Morph) [facility] CenterAtnozrzNHMEMSRJDQ6156-29-77 22:30:00 Test Item Value Reference Range Interpretation Comments Segs-Bands # (test code = Segs-Bands #) 15.2 1.5-8.1 [facility] CenterXdmdnfoZSSXFFFAKS4345-17-84 22:30:00 Test Item Value Reference Range Interpretation Comments Lymphocytes # (test code = Lymphocytes 1.3 1.0-5.5 #) [facility] CenterBhglegfPWMAOOCWGN6741-29-24 22:30:00 Test Item Value Reference Range Interpretation Comments Eosinophils (test code = 0.2 See_Comment [A utomated message] The Eosinophils) system which ge nerated this result tra nsmitted reference range : <=4.0. The reference r jennifer was not used to int erpret this result as normal/abnormal . [facility] CenterRmzekrcJXYOENPKMM5695-43-82 22:30:00 Test Item Value Reference Range Interpretation Comments Basophils (test code = 0.0 See_Comment [Aut omated message] The Basophils) system which ge nerated this result tra nsmitted reference range : <=1.0. The reference r jennifer was not used to int erpret this result as normal/abnormal . [facility] CenterMzkneddZCGKPCWRXO3659-29-34 22:30:00 Test Item Value Reference Range Interpretation Comments Hgb (test code = Hgb) 11.9 12.0-16.0 [facility] CenterFlwztfbGSBUAXPZVP9277-31-29 22:30:00 Test Item Value Reference Range Interpretation Comments Hct (test code = Hct) 34.0 36.0-48.0 [facility] CenterBubodpkZAZCHJYNEF8154-18-41 22:30:00 Test Item Value Reference Range Interpretation Comments WBC (test code = WBC) 16.6 3.7-10.4 [facility] CenterItaocruOPUBEECNSP2176-54-86 22:30:00 Test Item Value Reference Range Interpretation Comments RBC (test code = RBC) 3.67 4.20-5.40 [facility] CenterMjczonvLMWTOWESEL6551-41-41 22:30:00 Test Item Value Reference Range Interpretation Comments RDW (test code = RDW) 17.2 11.5-14.5 [facility] CenterTmqvvncFDJJDDAQML5930-77-34 22:30:00 Test Item Value Reference Range Interpretation Comments Platelet (test code = Platelet) 398 133-450 [facility] CenterFtfkhotGVDNKHAJLU8480-35-87 22:30:00 Test Item Value Reference Range Interpretation Comments MPV (test code = MPV) 8.5 7.4-10.4 [facility] CenterQftfzjvANRXXCHLAE3737-42-90 22:30:00 Test Item Value Reference Range Interpretation Comments MCV (test code = MCV) 92.6 81.0-99.0 [facility] CenterEszuuvmERLISXINFC2656-87-44 22:30:00 Test Item Value Reference Range Interpretation Comments MCH (test code = MCH) 32.4 pg 27.0-31.0 [facility] CenterJplsrijMMPIBUGHPZ1493-18-24 22:30:00 Test Item Value Reference Range Interpretation Comments MCHC (test code = MCHC) 35.0 32.0-36.0 [facility] CenterIozvrizZODDVAKJMS4499-42-37 22:30:00 Test Item Value Reference Range Interpretation Comments INR (test code = INR) 0.97 0.85-1.17 [facility] CenterUnikcfoBLLUFQGAKI3739-14-28 22:30:00 Test Item Value Reference Range Interpretation Comments PT (test code = PT) 12.8 s 12.0-14.7 [facility] CenterNoqguieVILJUNNMAZ0344-94-80 22:30:00 Test Item Value Reference Range Interpretation Comments PTT (test code = PTT) 21.9 s 22.9-35.8 [facility]2014-06-03 07:00:00 Test Item Value Reference Range Interpretation Comments Globulin (test code = Globulin) 3.0 2.0-4.0 [facility]2014-06-03 07:00:00 Test Item Value Reference Range Interpretation Comments A/G Ratio (test code = A/G Ratio) 1.2 0.7-1.6 [facility]2014-06-03 07:00:00 Test Item Value Reference Range Interpretation Comments AGAP (test code = AGAP) 13.2 10.0-20.0 [facility]2014-06-03 07:00:00 Test Item Value Reference Range Interpretation Comments B/C Ratio (test code = B/C Ratio) 27 6-25 [facility]2014-06-03 07:00:00 Test Item Value Reference Range Interpretation Comments eGFR (test code = eGFR) 100 [facility]2014-06-03 07:00:00 Test Item Value Reference Range Interpretation Comments Calcium Lvl (test code = Calcium Lvl) 8.9 8.5-10.5 [place] 053264-06-03 07:00:00 Test Item Value Reference Range Interpretation Comments CO2 (test code = CO2) 30 24-32 [facility]2014-06-03 07:00:00 Test Item Value Reference Range Interpretation Comments Albumin Lvl (test code = Albumin Lvl) 3.5 3.5-5.0 [facility]2014-06-03 07:00:00 Test Item Value Reference Range Interpretation Comments AST (test code = AST) 101 See_Comment [Auto mated message] The system which ge nerated this result transmit iva reference range : <=37. The reference range was not used to interpr et this result as toro l/abnormal. [facility]2014-06-03 07:00:00 Test Item Value Reference Range Interpretation Comments ALT (test code = ALT) 282 See_Comment [Auto mated message] The system which ge nerated this result transmit iva reference range : <=65. The reference range was not used to interpr et this result as toro l/abnormal. [place] 053264-06-03 07:00:00 Test Item Value Reference Range Interpretation Comments Alk Phos (test code = Alk Phos) 134 39-136 [facility]2014-06-03 07:00:00 Test Item Value Reference Range Interpretation Comments Bili Total (test code = Bili Total) 0.5 0.2-1.3 [place] 053264-06-03 07:00:00 Test Item Value Reference Range Interpretation Comments Glucose Lvl (test code = Glucose Lvl) 176 70-99 [facility]2014-06-03 07:00:00 Test Item Value Reference Range Interpretation Comments Sodium Lvl (test code = Sodium Lvl) 142 135-145 [place] 053264-06-03 07:00:00 Test Item Value Reference Range Interpretation Comments Creatinine Lvl (test code = Creatinine 0.6 0.5-1.4 Lvl) [facility]2014-06-03 07:00:00 Test Item Value Reference Range Interpretation Comments BUN (test code = BUN) 16 7-22 [facility]2014-06-03 07:00:00 Test Item Value Reference Range Interpretation Comments Potassium Lvl (test code = Potassium 4.2 3.5-5.1 Lvl) [facility]2014-06-03 07:00:00 Test Item Value Reference Range Interpretation Comments Chloride Lvl (test code = Chloride Lvl) 103 95-109 [facility]2014-06-03 07:00:00 Test Item Value Reference Range Interpretation Comments Total Protein (test code = Total 6.5 6.4-8.4 Protein) [facility]2014-06-03 07:00:00 Test Item Value Reference Range Interpretation Comments Phosphorus (test code = Phosphorus) 3.5 2.5-4.5 [facility]2014-06-03 07:00:00 Test Item Value Reference Range Interpretation Comments Magnesium Lvl (test code = Magnesium 2.0 1.8-2.4 Lvl) [facility]2014-06-03 07:00:00 Test Item Value Reference Range Interpretation Comments LDH (test code = LDH) 398 98-192 [facility]2014-06-03 07:00:00 Test Item Value Reference Range Interpretation Comments Bili Direct (test code 0.2 See_Comment [Aut omated message] The = Bili Direct) system which generated this result tra nsmitted reference range : <=0.3. The reference r jennifer was not used to int erpret this result as toro l/abnormal. [facility] CenterIfvobmvMFEPNSMAQN7909-24-72 07:00:00 Test Item Value Reference Range Interpretation Comments MPV (test code = MPV) 9.8 7.4-10.4 [facility] CenterKmmgkokFTZJMYMBNC5006-62-24 07:00:00 Test Item Value Reference Range Interpretation Comments Hgb (test code = Hgb) 11.2 12.0-16.0 [facility] CenterZvbcuucETUUBVCPOK9873-78-71 07:00:00 Test Item Value Reference Range Interpretation Comments Hct (test code = Hct) 33.1 36.0-48.0 [facility] CenterNwqkhxtQOUATDWMUD0862-18-85 07:00:00 Test Item Value Reference Range Interpretation Comments WBC (test code = WBC) 16.7 3.7-10.4 [facility] CenterDinhfwaWYYEZNFWCB1452-24-00 07:00:00 Test Item Value Reference Range Interpretation Comments RBC (test code = RBC) 3.56 4.20-5.40 [facility] CenterWzqsdqlTOORVOIUTS1096-00-03 07:00:00 Test Item Value Reference Range Interpretation Comments MCHC (test code = MCHC) 33.9 32.0-36.0 [facility] CenterPtmrknyIHOELQVTOO2112-40-93 07:00:00 Test Item Value Reference Range Interpretation Comments Platelet (test code = Platelet) 132 133-450 [facility] CenterTlwacnqPSIHORJQQT2723-88-82 07:00:00 Test Item Value Reference Range Interpretation Comments RDW (test code = RDW) 17.1 11.5-14.5 [facility] CenterX[id number] 07:00:00 Test Item Value Reference Range Interpretation Comments MCV (test code = MCV) 93.0 81.0-99.0 [facility] CenterMhlbryjMPGTCDIRVY7252-03-02 07:00:00 Test Item Value Reference Range Interpretation Comments MCH (test code = MCH) 31.5 pg 27.0-31.0 [facility] CenterIeytbxwRMKWLMITLX9924-73-97 07:00:00 Test Item Value Reference Range Interpretation Comments INR (test code = INR) 0.93 0.85-1.17 [facility] CenterBtvekgqEFAEELSOXK3033-24-56 07:00:00 Test Item Value Reference Range Interpretation Comments PTT (test code = PTT) 22.6 s 22.9-35.8 [facility] CenterJtqedlpMFNZSXRJNC4440-60-85 07:00:00 Test Item Value Reference Range Interpretation Comments PT (test code = PT) 12.4 s 12.0-14.7 [facility] CenterNmbzsfmAQGECUUODB3851-65-47 07:00:00 Test Item Value Reference Range Interpretation Comments Eosinophils # (test code 0.1 See_Comment [A utomated message] The = Eosinophils #) system whic h generated this result tra nsmitted reference range : <=0.5. The reference r jennifer was not used to int erpret this result as normal/abnormal . [facility] CenterZtrctnsPDKSRHJYUZ6279-46-28 07:00:00 Test Item Value Reference Range Interpretation Comments Segs (test code = Segs) 71.3 45.0-75.0 [facility] CenterWtnvvqqUCUHHGJUUZ9610-95-36 07:00:00 Test Item Value Reference Range Interpretation Comments Monocytes (test code = Monocytes) 5.8 2.0-12.0 [facility] CenterAhofmvsFEDRZAXUWU2238-34-26 07:00:00 Test Item Value Reference Range Interpretation Comments Lymphocytes (test code = Lymphocytes) 22.5 20.0-40.0 [facility] CenterAkueaxtMIUKRWYYGT3634-31-90 07:00:00 Test Item Value Reference Range Interpretation Comments Lymphocytes # (test code = Lymphocytes 3.8 1.0-5.5 #) [facility] CenterPqcyyibCTRRLFHWNM7942-77-47 07:00:00 Test Item Value Reference Range Interpretation Comments Segs-Bands # (test code = Segs-Bands #) 11.9 1.5-8.1 [facility] CenterEqwookjXUFFQMHLDJ5688-55-12 07:00:00 Test Item Value Reference Range Interpretation Comments Monocytes # (test code 1.0 See_Comment [Aut omated message] The = Monocytes #) system which generated this result tra nsmitted reference range : <=0.8. The reference r jennifer was not used to int erpret this result as normal/abnormal . [facility] CenterOscqgsgWCPKVSQWKM9277-34-74 07:00:00 Test Item Value Reference Range Interpretation Comments Basophils (test code = 0.1 See_Comment [Aut omated message] The Basophils) system which ge nerated this result tra nsmitted reference range : <=1.0. The reference r jennifer was not used to int erpret this result as normal/abnormal . [facility] CenterLvcozqiUZKGENXQQL7253-06-19 07:00:00 Test Item Value Reference Range Interpretation Comments Eosinophils (test code = 0.3 See_Comment [A utomated message] The Eosinophils) system which ge nerated this result tra nsmitted reference range : <=4.0. The reference r jennifer was not used to int erpret this result as normal/abnormal . [facility]2014-06-03 07:00:00 Test Item Value Reference Range Interpretation Comments Ca Ion WB (test code = Ca Ion WB) 1.15 1.05-1.25 [facility]2014-06-03 07:00:00 Test Item Value Reference Range Interpretation Comments Ca Norm WB (test code = Ca Norm WB) 1.14 1.05-1.25 [facility] CharlieURINE AND VKVRJ4782-90-96 00:13:22 Test Item Value Reference Range Interpretation Comments Occult Bld Stl (test Negative (02/13/14 7:13 code = Occult Bld Stl) PM) [facility] [id number] 20:50:00 Test Item Value Reference Range Interpretation Comments Misc Lab (test code [id number] Activity: =67 = Misc Lab) Reference lab results scanned in [facility]. Results displayed in Bcqyzcz-Tqh-SYQKRGUOH LAB-Outside Lab Documents (Imaged) under date/time results were scanned. Report sent for scanning on 02/16/2014 13:27. Detailed report faxed to Dr. Chen @02/16/2014 13:32/peggy. [facility] [id number] 20:50:00 Test Item Value Reference Range Interpretation Comments Test Name (test code = Test [id number] ACTIVITY Name) [facility] [id number] 07:23:40 Test Item Value Reference Range Interpretation Comments Globulin (test code = Globulin) 2.8 2.0-4.0 [facility] [employer] [id number] 07:23:40 Test Item Value Reference Range Interpretation Comments A/G Ratio (test code = A/G Ratio) 1.2 0.7-1.6 [facility]2014-06-02 07:23:40 Test Item Value Reference Range Interpretation Comments Bili Indirect (test 0.4 See_Comment [Automa iva message] The code = Bili Indirect) system which generated this result tra nsmitted reference range : <=1.0. The reference r jennifer was not used to int erpret this result as normal/abnormal . [facility] [employer] [id number] 07:23:40 Test Item Value Reference Range Interpretation Comments AST (test code = AST) 101 See_Comment [Auto mated message] The system which ge nerated this result transmit iva reference range : <=37. The reference range was not used to interpr et this result as toro l/abnormal. [facility] [employer] [id number] 07:23:40 Test Item Value Reference Range Interpretation Comments ALT (test code = ALT) 258 See_Comment [Auto mated message] The system which ge nerated this result transmit iva reference range : <=65. The reference range was not used to interpr et this result as toro l/abnormal. [facility]2014-06-02 07:23:40 Test Item Value Reference Range Interpretation Comments Albumin Lvl (test code = Albumin Lvl) 3.4 3.5-5.0 [facility]2014-06-02 07:23:40 Test Item Value Reference Range Interpretation Comments Total Protein (test code = Total 6.2 6.4-8.4 Protein) [facility]2014-06-02 07:23:40 Test Item Value Reference Range Interpretation Comments Bili Direct (test code 0.2 See_Comment [Aut omated message] The = Bili Direct) system which generated this result tra nsmitted reference range : <=0.3. The reference r jennifer was not used to int erpret this result as toro l/abnormal. [facility]2014-06-02 07:23:40 Test Item Value Reference Range Interpretation Comments Bili Total (test code = Bili Total) 0.6 0.2-1.3 [facility]2014-06-02 07:23:40 Test Item Value Reference Range Interpretation Comments Alk Phos (test code = Alk Phos) 121 39-136 [facility]2014-06-02 07:23:40 Test Item Value Reference Range Interpretation Comments Magnesium Lvl (test code = Magnesium 1.9 1.8-2.4 Lvl) [facility]2014-06-02 07:23:40 Test Item Value Reference Range Interpretation Comments Phosphorus (test code = Phosphorus) 3.1 2.5-4.5 [facility]2014-06-02 07:23:40 Test Item Value Reference Range Interpretation Comments LDH (test code = LDH) 378 98-192 [facility]2014-06-02 07:23:40 Test Item Value Reference Range Interpretation Comments eGFR (test code = eGFR) 100 [facility]2014-06-02 07:23:40 Test Item Value Reference Range Interpretation Comments Chloride Lvl (test code = Chloride Lvl) 105 95-109 [place] 053264-06-02 07:23:40 Test Item Value Reference Range Interpretation Comments Calcium Lvl (test code = Calcium Lvl) 8.8 8.5-10.5 [facility]2014-06-02 07:23:40 Test Item Value Reference Range Interpretation Comments CO2 (test code = CO2) 29 24-32 [place] 053264-06-02 07:23:40 Test Item Value Reference Range Interpretation Comments BUN (test code = BUN) 16 7-22 [facility]2014-06-02 07:23:40 Test Item Value Reference Range Interpretation Comments Potassium Lvl (test code = Potassium 4.0 3.5-5.1 Lvl) [facility]2014-06-02 07:23:40 Test Item Value Reference Range Interpretation Comments Sodium Lvl (test code = Sodium Lvl) 142 135-145 [place] [address]-06-02 07:23:40 Test Item Value Reference Range Interpretation Comments Creatinine Lvl (test code = Creatinine 0.6 0.5-1.4 Lvl) [facility]2014-06-02 07:23:40 Test Item Value Reference Range Interpretation Comments Glucose Lvl (test code = Glucose Lvl) 152 70-99 [facility]2014-06-02 07:23:40 Test Item Value Reference Range Interpretation Comments AGAP (test code = AGAP) 12.0 10.0-20.0 [facility] CenterQbojsxaVKWFEUROCD9987-74-24 07:23:40 Test Item Value Reference Range Interpretation Comments INR (test code = INR) 0.96 0.85-1.17 [facility] CenterTiulztsUOCHUITYYM7369-90-16 07:23:40 Test Item Value Reference Range Interpretation Comments PTT (test code = PTT) 22.4 s 22.9-35.8 [facility] CenterRywbpdvJYQKWTCPXX6990-04-11 07:23:40 Test Item Value Reference Range Interpretation Comments PT (test code = PT) 12.7 s 12.0-14.7 [facility] CenterVhfpiehDSPEYYSIGK3839-38-12 07:23:40 Test Item Value Reference Range Interpretation Comments RDW (test code = RDW) 17.1 11.5-14.5 [place] 741634-06-02 07:23:40 Test Item Value Reference Range Interpretation Comments Platelet (test code = Platelet) 95 133-450 [facility] CenterQhnzidgJGDUMYLJOJ6831-64-40 07:23:40 Test Item Value Reference Range Interpretation Comments MCHC (test code = MCHC) 34.5 32.0-36.0 [facility] CenterGclyjwcJQJNFCRLDO5116-35-02 07:23:40 Test Item Value Reference Range Interpretation Comments MCV (test code = MCV) 92.0 81.0-99.0 [facility] CenterQckuurdVHKLABMYXD9029-97-86 07:23:40 Test Item Value Reference Range Interpretation Comments MCH (test code = MCH) 31.8 pg 27.0-31.0 [facility] CenterQflqowlVVJLELDOTA3612-21-20 07:23:40 Test Item Value Reference Range Interpretation Comments Hct (test code = Hct) 31.3 36.0-48.0 [facility] CenterYejsqdpXIXNBERTHX9010-95-02 07:23:40 Test Item Value Reference Range Interpretation Comments Hgb (test code = Hgb) 10.8 12.0-16.0 [facility] CenterTzbakmoSBLDXTPOSI7389-17-32 07:23:40 Test Item Value Reference Range Interpretation Comments RBC (test code = RBC) 3.41 4.20-5.40 [facility] CenterJyhctzjMKDVCSOOQX9056-01-43 07:23:40 Test Item Value Reference Range Interpretation Comments WBC (test code = WBC) 14.9 3.7-10.4 [facility] CenterSqgqfnzVTQIRZLMFH2627-26-81 07:23:40 Test Item Value Reference Range Interpretation Comments MPV (test code = MPV) 8.3 7.4-10.4 [facility] CenterGwsowcrREKVJFPIQW2782-98-69 07:23:40 Test Item Value Reference Range Interpretation Comments Basophils (test code = 0.1 See_Comment [Aut omated message] The Basophils) system which ge nerated this result tra nsmitted reference range : <=1.0. The reference r jennifer was not used to int erpret this result as normal/abnormal . [facility] CenterSlcoqqrXUDCLPCLIA1232-72-79 07:23:40 Test Item Value Reference Range Interpretation Comments Segs-Bands # (test code = Segs-Bands #) 10.5 1.5-8.1 [facility] CenterCirswimFKLRBJIUTS7208-10-49 07:23:40 Test Item Value Reference Range Interpretation Comments Lymphocytes # (test code = Lymphocytes 3.5 1.0-5.5 #) [facility]aleRdscfjgGRXWLIVQOM3650-10-57 07:23:40 Test Item Value Reference Range Interpretation Comments Monocytes # (test code 0.8 See_Comment [Aut omated message] The = Monocytes #) system which generated this result tra nsmitted reference range : <=0.8. The reference r jennifer was not used to int erpret this result as normal/abnormal . [facility]valeAmdnzneBEWITMCEAD1207-29-47 07:23:40 Test Item Value Reference Range Interpretation Comments Eosinophils (test code = 0.3 See_Comment [A utomated message] The Eosinophils) system which ge nerated this result tra nsmitted reference range : <=4.0. The reference r jennifer was not used to int erpret this result as normal/abnormal . [facility]valeDbzwognBVYULDSBRM0180-71-59 07:23:40 Test Item Value Reference Range Interpretation Comments Lymphocytes (test code = Lymphocytes) 23.5 20.0-40.0 [facility]NpijrgdBXSZAOYVKF1144-83-17 07:23:40 Test Item Value Reference Range Interpretation Comments Segs (test code = Segs) 70.8 45.0-75.0 [facility]aleSpxvldmQOEKUYJTRY1880-84-15 07:23:40 Test Item Value Reference Range Interpretation Comments Monocytes (test code = Monocytes) 5.3 2.0-12.0 [facility] CenterannPARATHYROID EGZOALN7726-81-22 07:23:00 Test Item Value Reference Range Interpretation Comments Ca Norm WB (test code = Ca Norm WB) 1.18 1.05-1.25 [facility] CenterannPARATHYROID RSGZAJF4765-43-67 07:23:00 Test Item Value Reference Range Interpretation Comments Ca Ion WB (test code = Ca Ion WB) 1.18 1.05-1.25 [facility] CenterannSPECIAL EDTXGUABG6555-47-90 03:00:48 Test Item Value Reference Range Interpretation Comments U Hgb Free (test code = U Hgb Free) no gt [facility] CenterannCARDIAC RCJUMQF7277-59-51 08:14:00 Test Item Value Reference Range Interpretation Comments Total CK (test code = Total CK) 32 12-191 [facility] CenterannCHEM YWCAQ9509-94-82 08:14:00 Test Item Value Reference Range Interpretation Comments Magnesium Lvl (test code = Magnesium 2.0 1.8-2.4 Lvl) [facility]2014-06-01 08:14:00 Test Item Value Reference Range Interpretation Comments Globulin (test code = Globulin) 3.0 2.0-4.0 [facility]2014-06-01 08:14:00 Test Item Value Reference Range Interpretation Comments A/G Ratio (test code = A/G Ratio) 1.2 0.7-1.6 [place] 053264-06-01 08:14:00 Test Item Value Reference Range Interpretation Comments Bili Indirect (test 0.6 See_Comment [Automa iva message] The code = Bili Indirect) system which generated this result tra nsmitted reference range : <=1.0. The reference r jennifer was not used to int erpret this result as normal/abnormal . [facility]2014-06-01 08:14:00 Test Item Value Reference Range Interpretation Comments Total Protein (test code = Total 6.5 6.4-8.4 Protein) [facility]2014-06-01 08:14:00 Test Item Value Reference Range Interpretation Comments AST (test code = AST) 35 See_Comment [Auto mated message] The system which ge nerated this result transmit iva reference range : <=37. The reference range was not used to interpr et this result as toro l/abnormal. [facility]2014-06-01 08:14:00 Test Item Value Reference Range Interpretation Comments Albumin Lvl (test code = Albumin Lvl) 3.5 3.5-5.0 [facility]2014-06-01 08:14:00 Test Item Value Reference Range Interpretation Comments ALT (test code = ALT) 162 See_Comment [Auto mated message] The system which ge nerated this result transmit iva reference range : <=65. The reference range was not used to interpr et this result as toro l/abnormal. [facility]2014-06-01 08:14:00 Test Item Value Reference Range Interpretation Comments Bili Direct (test code 0.2 See_Comment [Aut omated message] The = Bili Direct) system which generated this result tra nsmitted reference range : <=0.3. The reference r jennifer was not used to int erpret this result as toro l/abnormal. [place] 053264-06-01 08:14:00 Test Item Value Reference Range Interpretation Comments Alk Phos (test code = Alk Phos) 122 39-136 [facility]2014-06-01 08:14:00 Test Item Value Reference Range Interpretation Comments Bili Total (test code = Bili Total) 0.8 0.2-1.3 [facility]2014-06-01 08:14:00 Test Item Value Reference Range Interpretation Comments Phosphorus (test code = Phosphorus) 3.6 2.5-4.5 [facility]2014-06-01 08:14:00 Test Item Value Reference Range Interpretation Comments LDH (test code = LDH) 452 98-192 [facility]TcxlbquYPMDZFGEUPOM2057-39-32 08:14:00 Test Item Value Reference Range Interpretation Comments AGAP (test code = AGAP) 13.7 10.0-20.0 [facility] HospitalUfeyfziNEYNWUMOHDKH8205-69-74 08:14:00 Test Item Value Reference Range Interpretation Comments eGFR (test code = eGFR) 95 [facility] HospitalLcufgbbQNGJSRRUJSPM9565-66-91 08:14:00 Test Item Value Reference Range Interpretation Comments Glucose Lvl (test code = Glucose Lvl) 189 70-99 [facility] HospitalFyefwmiVAURNEAWALVE9970-22-33 08:14:00 Test Item Value Reference Range Interpretation Comments BUN (test code = BUN) 21 7-22 [facility] HospitalWxmjyktUIJXSZNNOTHU6557-37-83 08:14:00 Test Item Value Reference Range Interpretation Comments Chloride Lvl (test code = Chloride Lvl) 103 95-109 [facility] HospitalJaneewoPKVWTHXIOIPT3566-46-66 08:14:00 Test Item Value Reference Range Interpretation Comments Potassium Lvl (test code = Potassium 4.7 3.5-5.1 Lvl) [facility] HospitalBpnqiyaTPZVVQTVRNCR1980-27-82 08:14:00 Test Item Value Reference Range Interpretation Comments Sodium Lvl (test code = Sodium Lvl) 142 135-145 [facility] HospitalSnazaipTZZRZBWDTRLJ7936-02-63 08:14:00 Test Item Value Reference Range Interpretation Comments Creatinine Lvl (test code = Creatinine 0.7 0.5-1.4 Lvl) [facility] HospitalFquzjvyYYNZOMOQRRNA1332-13-92 08:14:00 Test Item Value Reference Range Interpretation Comments Calcium Lvl (test code = Calcium Lvl) 9.2 8.5-10.5 [facility] CenterTxnwweeCDVFGAQMYWCH4982-57-68 08:14:00 Test Item Value Reference Range Interpretation Comments CO2 (test code = CO2) 30 24-32 [facility] CenterPibmrmjAGFSXEXUDD1716-43-07 08:14:00 Test Item Value Reference Range Interpretation Comments Lymphocytes (test code = Lymphocytes) 21.6 20.0-40.0 [facility] CenterUizwztvHRXCCOGEEC2861-22-22 08:14:00 Test Item Value Reference Range Interpretation Comments Segs (test code = Segs) 72.1 45.0-75.0 [facility] CenterXmppsokERDBSJRTSY0062-12-64 08:14:00 Test Item Value Reference Range Interpretation Comments Segs-Bands # (test code = Segs-Bands #) 11.1 1.5-8.1 [facility] CenterRmvhqjdZUYTSPOSYE1544-95-40 08:14:00 Test Item Value Reference Range Interpretation Comments Monocytes # (test code 0.9 See_Comment [Aut omated message] The = Monocytes #) system which generated this result tra nsmitted reference range : <=0.8. The reference r jennifer was not used to int erpret this result as normal/abnormal . [facility] CenterVnwqvceXMCXMLGZZV3155-69-29 08:14:00 Test Item Value Reference Range Interpretation Comments Basophils (test code = 0.3 See_Comment [Aut omated message] The Basophils) system which ge nerated this result tra nsmitted reference range : <=1.0. The reference r jennifer was not used to int erpret this result as normal/abnormal . [facility] CenterPucwdomFPAQCEGVBN6537-46-13 08:14:00 Test Item Value Reference Range Interpretation Comments Lymphocytes # (test code = Lymphocytes 3.3 1.0-5.5 #) [facility] CenterGlglepmODEBXKOFOJ7435-23-43 08:14:00 Test Item Value Reference Range Interpretation Comments Eosinophils (test code = 0.3 See_Comment [A utomated message] The Eosinophils) system which ge nerated this result tra nsmitted reference range : <=4.0. The reference r jennifer was not used to int erpret this result as normal/abnormal . [facility] CenterGuccwkyPCPBVSVQPE9961-26-26 08:14:00 Test Item Value Reference Range Interpretation Comments Monocytes (test code = Monocytes) 5.7 2.0-12.0 [facility] CenterPfgxnzvCAKOISMJCO7696-37-43 08:14:00 Test Item Value Reference Range Interpretation Comments Lup Interp (test Negative for lupus code = Lup Interp) anticoagulant with all tests performed (dRVVT and hexagonal phospholipid neutralization). CPT: 96426 [facility] CenterNgniolhRGPXPDWPXL9639-47-90 08:14:00 Test Item Value Reference Range Interpretation Comments dRVV Ratio (test code = dRVV Ratio) 0.76 [facility] CenterYuldyduYLAWDIBUYJ6566-91-95 08:14:00 Test Item Value Reference Range Interpretation Comments Hex Phos N (test code Negative (02/12/14 3:14 = Hex Phos N) AM) [facility] CenterOrvfcqaQPCWCTREWF2236-32-25 08:14:00 Test Item Value Reference Range Interpretation Comments INR (test code = INR) 0.96 0.85-1.17 [place] 741634-06-01 08:14:00 Test Item Value Reference Range Interpretation Comments PTT (test code = PTT) 21.8 s 22.9-35.8 [facility] CenterVblizddOFANYSMXGT1801-82-79 08:14:00 Test Item Value Reference Range Interpretation Comments PT (test code = PT) 12.7 s 12.0-14.7 [facility] CenterNuilgpgAXHJXMWNUU4547-17-91 08:14:00 Test Item Value Reference Range Interpretation Comments MPV (test code = MPV) 8.4 7.4-10.4 [facility] CenterWunphdhYYEMMMJHPD7464-49-97 08:14:00 Test Item Value Reference Range Interpretation Comments RDW (test code = RDW) 16.8 11.5-14.5 [facility] CenterKzbgxscCULMVEIEND3488-58-30 08:14:00 Test Item Value Reference Range Interpretation Comments Platelet (test code = Platelet) 71 677-450 [facility] CenterFrsgiecAYYVUKKAXQ4915-34-40 08:14:00 Test Item Value Reference Range Interpretation Comments MCH (test code = MCH) 31.6 pg 27.0-31.0 [facility] CenterXzsqaquRZVKRYVSHR2350-98-39 08:14:00 Test Item Value Reference Range Interpretation Comments MCHC (test code = MCHC) 34.6 32.0-36.0 [facility] CenterDhsvfjcGJWNEITDFP2107-83-34 08:14:00 Test Item Value Reference Range Interpretation Comments Hct (test code = Hct) 31.9 36.0-48.0 [facility]aleGganfbiHBUWVNRNPM6530-01-64 08:14:00 Test Item Value Reference Range Interpretation Comments MCV (test code = MCV) 91.2 81.0-99.0 [facility]aleTwmvcssPDRJJWHOZJ3095-69-79 08:14:00 Test Item Value Reference Range Interpretation Comments Hgb (test code = Hgb) 11.1 12.0-16.0 [facility]LnmzhuxBITCWHTOGN1222-62-75 08:14:00 Test Item Value Reference Range Interpretation Comments WBC (test code = WBC) 15.4 3.7-10.4 [facility] CenterNlmrknfOTYXYISPOB6213-80-76 08:14:00 Test Item Value Reference Range Interpretation Comments RBC (test code = RBC) 3.50 4.20-5.40 [facility] SunnyvalePmsroakACKSPNKDKA6551-90-39 08:14:00 Test Item Value Reference Range Interpretation Comments Cardiolipin IgA (test code = 1 Cardiolipin IgA) [facility] SunnyvaleVieewfbOOBDDLCADL4716-32-97 08:14:00 Test Item Value Reference Range Interpretation Comments Cardiolipin IgG (test code = 2 Cardiolipin IgG) [facility] SunnyvaleGjuufdcNBAXHOHVWY9548-48-65 08:14:00 Test Item Value Reference Range Interpretation Comments Cardiolipin IgM (test code = 3.6 Cardiolipin IgM) [facility] SunnyvalePARATHYROID UHBFZBH9700-23-40 08:14:00 Test Item Value Reference Range Interpretation Comments Ca Norm WB (test code = Ca Norm WB) 1.16 1.05-1.25 [facility] CenterannPARATHYROID ICELUYM9992-90-50 08:14:00 Test Item Value Reference Range Interpretation Comments Ca Ion WB (test code = Ca Ion WB) 1.18 1.05-1.25 [facility] SunnyvaleCHEM YSTKL7299-47-75 05:02:56 Test Item Value Reference Range Interpretation Comments Bili Indirect (test 1.1 See_Comment [Automa iva message] The code = Bili Indirect) system which generated this result tra nsmitted reference range : <=1.0. The reference r jennifer was not used to int erpret this result as normal/abnormal . [facility] SunnyvaleHufbvjnLCPMCRRCEJ8838-85-74 05:02:46 Test Item Value Reference Range Interpretation Comments AQUACULTURIST Ab (test code = AQUACULTURIST Ab) 0.7 [facility]VnicggoRBVGPZFKFC1009-30-00 05:02:46 Test Item Value Reference Range Interpretation Comments SS-A (Ro) Ab (test code = SS-A (Ro) Ab) 0.2 [facility] HospitalSfyhceeMBROPOGPKJ3083-00-04 05:02:46 Test Item Value Reference Range Interpretation Comments SS-B (La) Ab (test code = SS-B (La) Ab) no gt [facility] HospitalAeodnvmNUDQXQBFWF9049-04-61 05:02:46 Test Item Value Reference Range Interpretation Comments Sm Ab (test code = Sm Ab) 0.2 [facility] HospitalOmhosrpHODHDBPRYG7080-84-07 05:02:46 Test Item Value Reference Range Interpretation Comments ALLEN Titer (test code = 1:1280 *ABN*(02/11/14 ALLEN Titer) 12:02 AM) [facility] HospitalPyijytwVFDDFCZLRD8815-44-22 05:02:46 Test Item Value Reference Range Interpretation Comments ALLEN Interp (test code Pattern appears Mixed = ALLEN Interp) Speckled and Nucleolar [facility] HospitalVpytzskHTIHFWFWMG5453-65-68 05:02:46 Test Item Value Reference Range Interpretation Comments ALLEN (test code = ALLEN) Positive *ABN*(02/11/14 12:02 AM) [facility]2014-05-31 05:02:42 Test Item Value Reference Range Interpretation Comments % Satur Fe (test code = % Satur Fe) 30 12-57 [facility]2014-05-31 05:02:42 Test Item Value Reference Range Interpretation Comments UIBC (test code = UIBC) 183 110-370 [facility]2014-05-31 05:02:42 Test Item Value Reference Range Interpretation Comments Iron (test code = Iron) 78 30-160 [facility]2014-05-31 05:02:42 Test Item Value Reference Range Interpretation Comments TIBC (test code = TIBC) 261 228-428 [facility]2014-05-31 05:02:42 Test Item Value Reference Range Interpretation Comments Folate Lvl (test code = Folate Lvl) 17.2 [facility]2014-05-31 05:02:42 Test Item Value Reference Range Interpretation Comments Vitamin B12 Lvl (test code = Vitamin 036 451-5313 B12 Lvl) [facility]2014-05-31 05:02:42 Test Item Value Reference Range Interpretation Comments Ferritin Lvl (test code = Ferritin Lvl) 822 5204 [facility] HospitalEmpvhqaOHRXAZSXBO9154-40-75 05:02:42 Test Item Value Reference Range Interpretation Comments HIV 1/2 Ab (test code Negative *NA*(02/11/14 = HIV 1/2 Ab) 12:02 AM) [facility] HospitalEywzhqxADTWTGXPHR6441-34-64 05:02:42 Test Item Value Reference Range Interpretation Comments Hep Bs Ag (test code Negative *NA*(02/11/14 = Hep Bs Ag) 12:02 AM) [facility] HospitalHpwfzbuEARXVBPLBP1512-50-67 05:02:42 Test Item Value Reference Range Interpretation Comments Hep A IgM (test code Negative *NA*(02/11/14 = Hep A IgM) 12:02 AM) [facility] HospitalRgblapfMBMPHQVUEF1770-22-35 05:02:42 Test Item Value Reference Range Interpretation Comments Hep B Core IgM (test Negative *NA*(02/11/14 code = Hep B Core 12:02 AM) IgM) [facility] HospitalFejskxyCKSDRVNIJO4418-56-86 05:02:42 Test Item Value Reference Range Interpretation Comments Hep C Ab (test code = Negative *NA*(02/11/14 Hep C Ab) 12:02 AM) [facility] HospitalYdjhuqtNJUBZCYOXX0326-75-79 05:02:42 Test Item Value Reference Range Interpretation Comments C4 Complement (test code = C4 27 16-47 Complement) [facility] HospitalNjqxpgqVUKRIMUQOC7699-23-20 05:02:42 Test Item Value Reference Range Interpretation Comments C3 Complement (test code = C3 119 88-201 Complement) [facility] HospitalMphkdnfZCAEKTBXOB1112-36-27 05:02:38 Test Item Value Reference Range Interpretation Comments DNA Ab (DS) (test Negative (02/11/14 12:02 code = DNA Ab (DS)) AM) [facility] CenterHyrjcrwNPPTTUBRDA2452-44-22 05:02:37 Test Item Value Reference Range Interpretation Comments Retic Auto (test code = Retic Auto) 5.6 0.5-1.5 [facility] CenterInxqqcrNPBROATMYR6274-48-05 05:02:05 Test Item Value Reference Range Interpretation Comments Anisocyte (test code = 1+ *ABN*(02/11/14 Anisocyte) 12:02 AM) [facility] CenterEjkgwflQEGLUHEYLG4161-48-42 05:02:05 Test Item Value Reference Range Interpretation Comments Elliptocyte (test code = Slight *ABN*(02/11/14 Elliptocyte) 12:02 AM) [facility]xiy[facility]nYRQDEDMWXB5688-52-89 05:02:05 Test Item Value Reference Range Interpretation Comments Polychrom (test code = Slight (02/11/14 12:02 Polychrom) AM) [facility]aleVyyhspaLPWYBJBJMW6792-04-95 05:02:05 Test Item Value Reference Range Interpretation Comments Plt Morph (test code = Normal (02/11/14 12:02 Plt Morph) AM) [facility]aleQjyxqztVRFWQEABNV1620-65-62 05:02:00 Test Item Value Reference Range Interpretation Comments Haptoglobin (test code = <8 mg/dL 16-200 Haptoglobin) [facility] [id number] 04:34:02 Test Item Value Reference Range Interpretation Comments ABO/Rh (test code = ABO/Rh) B POS [facility] [id number] 04:34:02 Test Item Value Reference Range Interpretation Comments Antibody Scrn (test Negative (02/10/14 code = Antibody Scrn) 11:34 PM) [facility] [id number] 04:34:02 Test Item Value Reference Range Interpretation Comments SCOTT Gel Int (test Negative (02/10/14 11:34 code = SCOTT Gel Int) PM) [facility] [id number] 04:34:02 Test Item Value Reference Range Interpretation Comments C3 Int (test code = Negative (02/10/14 11:34 C3 Int) PM) [facility] AND [id number] 16:45:04 Test Item Value Reference Range Interpretation Comments UA Bacteria (test code = None Seen (02/10/14 UA Bacteria) 11:45 AM) [facility] AND [id number] 16:45:04 Test Item Value Reference Range Interpretation Comments UA RBC (test code = 0-2 /HPF See_Comment [Automa iav message] The UA RBC) system which ge nerated this result tra nsmitted reference range : <=2. The reference range was not used to interpr et this result as toro l/abnormal. [facility] AND [id number] 16:45:04 Test Item Value Reference Range Interpretation Comments UA WBC (test code = UA WBC) 0-2 /HPF [facility] AND [id number] 16:45:04 Test Item Value Reference Range Interpretation Comments UA Sq Epi (test code = UA Sq Occasional /LPF Epi) [facility] AND [id number] 16:45:04 Test Item Value Reference Range Interpretation Comments Micro? (test code = Performed (02/10/14 11:45 Micro?) AM) [facility] AND [id number] 16:45:04 Test Item Value Reference Range Interpretation Comments UA Blood (test code = Small *ABN*(02/10/14 UA Blood) 11:45 AM) [facility] AND [id number] 16:45:04 Test Item Value Reference Range Interpretation Comments UA Urobilinogen (test code = UA 2.0 0.1-1.0 Urobilinogen) [facility] AND [id number] 16:45:04 Test Item Value Reference Range Interpretation Comments UA Bili (test code = Negative *NA*(02/10/14 UA Bili) 11:45 AM) [facility] AND [id number] 16:45:04 Test Item Value Reference Range Interpretation Comments UA Ketones (test code Negative *NA*(02/10/14 = UA Ketones) 11:45 AM) [facility] AND [id number] 16:45:04 Test Item Value Reference Range Interpretation Comments UA Glucose (test code Negative (02/10/14 11:45 = UA Glucose) AM) [facility] AND [id number] 16:45:04 Test Item Value Reference Range Interpretation Comments UA Protein (test code = Trace *ABN*(02/10/14 UA Protein) 11:45 AM) [facility] AND [id number] 16:45:04 Test Item Value Reference Range Interpretation Comments UA Spec Grav (test code = UA Spec 1.015 1 Grav) [facility] AND [id number] 16:45:04 Test Item Value Reference Range Interpretation Comments UA pH (test code = UA pH) 6.5 1 5.0-8.0 [facility] AND [id number] 16:45:04 Test Item Value Reference Range Interpretation Comments UA Nitrite (test code Negative (02/10/14 11:45 = UA Nitrite) AM) [facility] AND [id number] 16:45:04 Test Item Value Reference Range Interpretation Comments UA Leuk Est (test Negative (02/10/14 11:45 code = UA Leuk Est) AM) [facility] AND [id number] 16:45:04 Test Item Value Reference Range Interpretation Comments UA Turbidity (test code = Clear (02/10/14 11:45 UA Turbidity) AM) [facility] AND [id number] 16:45:04 Test Item Value Reference Range Interpretation Comments UA Color (test code = Yellow *NA*(02/10/14 UA Color) 11:45 AM) [facility]aleZiucunyHZFSOXQNJX2304-08-07 14:42:00 Test Item Value Reference Range Interpretation Comments CDC HIV 4th GEN (test Negative (02/10/14 9:42 code = CDC HIV 4th AM) GEN) [facility] CenterAstladcQYUZRAOSSX9246-55-97 13:18:30 Test Item Value Reference Range Interpretation Comments Basophils # (test code 0.0 See_Comment [Aut omated message] The = Basophils #) system which generated this result tra nsmitted reference range : <=0.2. The reference r jennifer was not used to int erpret this result as normal/abnormal . [facility] CenterGtdlnehLKXCBPCNHE9525-89-39 13:18:30 Test Item Value Reference Range Interpretation Comments Polychrom (test code = Slight (02/10/14 8:18 Polychrom) AM) [facility] CenterOlohisfMYVJSJMQCE4107-15-97 13:18:30 Test Item Value Reference Range Interpretation Comments Eosinophils # (test code 0.1 See_Comment [A utomated message] The = Eosinophils #) system whic h generated this result tra nsmitted reference range : <=0.5. The reference r jennifer was not used to int erpret this result as normal/abnormal . [facility] CenterWksnerjEIVTWJASOA8933-58-86 13:18:30 Test Item Value Reference Range Interpretation Comments Plt Morph (test code = Normal (02/10/14 8:18 Plt Morph) AM) [facility] CenterYlfhisuCRAGROFNRI6279-35-55 13:18:00 Test Item Value Reference Range Interpretation Comments Sed Rate (test code = 17 See_Comment [Auto mated message] The Sed Rate) system which ge nerated this result transmit iva reference range : <=20. The reference range was not used to interpr et this result as toro l/abnormal. [facility]aleOloaqnoFNIBJKIMUE6984-93-19 13:18:00 Test Item Value Reference Range Interpretation Comments C-REACTIVE PROTEIN (test code = 4.0 C-REACTIVE PROTEIN) [facility] GLUCOSE [id number] 11:53:00 Test Item Value Reference Range Interpretation Comments Gluc POC Lifscn (test code = Gluc POC 163 70-99 H Lifscn) [facility] GLUCOSE [id number] 11:53:00 Test Item Value Reference Range Interpretation Comments Comment1 (test code = Comment1) Notify RN/MD [facility]LcmvdmmWfjvaarzzour6762-22-62 18:25:20 Test Item Value Reference Range Interpretation Comments Culture: Wound/Abscess w/Gram Stain (test code = Culture: Wound/Abscess w/Gram Stain) [facility] CenterBybbxejIBOPBJHZGM1490-24-52 17:30:26 Test Item Value Reference Range Interpretation Comments Lymphocytes (test code = Lymphocytes) 27.4 20.0-40.[address] [facility] CenterOlbuebePNJCJLWVAY3534-29-83 17:30:26 Test Item Value Reference Range Interpretation Comments Segs (test code = Segs) 62.6 45.0-75.[address] [facility] CenterCknroaoWLOHVZENRI1576-39-68 17:30:26 Test Item Value Reference Range Interpretation Comments Eosinophils (test code = 3.2 See_Comment N [A utomated message] The Eosinophils) system which ge nerated this result tra nsmitted reference range : <=4.0. The reference r jennifer was not used to int erpret this result as normal/abnormal . [facility] CenterZbpysxkKZCUDRXKDQ5788-43-16 17:30:26 Test Item Value Reference Range Interpretation Comments Monocytes (test code = Monocytes) 5.9 2.0-12.[address] [facility] CenterWrkepuiAPLNVKGEEZ3690-12-25 17:30:26 Test Item Value Reference Range Interpretation Comments Lymphocytes # (test code = Lymphocytes 2.7 1.0-5.5 N #) [facility] CenterLerjagcTZPGPNNLVK3045-89-47 17:30:26 Test Item Value Reference Range Interpretation Comments Basophils (test code = 0.9 See_Comment N [Aut omated message] The Basophils) system which ge nerated this result tra nsmitted reference range : <=1.0. The reference r jennifer was not used to int erpret this result as normal/abnormal . [facility] CenterDzbyeurKUYRJFRXFW9829-40-18 17:30:26 Test Item Value Reference Range Interpretation Comments Segs-Bands # (test code = Segs-Bands #) 6.3 1.5-8.[address] [facility] CenterLmcqhetDAYJGBFPNS0639-45-86 17:30:26 Test Item Value Reference Range Interpretation Comments Eosinophils # (test code 0.3 See_Comment N [A utomated message] The = Eosinophils #) system whic h generated this result tra nsmitted reference range : <=0.5. The reference r jennifer was not used to int erpret this result as normal/abnormal . [facility] CenterNcnbddhNAPALPCZOL6389-99-96 17:30:26 Test Item Value Reference Range Interpretation Comments Monocytes # (test code 0.6 See_Comment N [Aut omated message] The = Monocytes #) system which generated this result tra nsmitted reference range : <=0.8. The reference r jennifer was not used to int erpret this result as normal/abnormal . [facility] CenterQjhlzziKCHPBQMDLG5645-48-54 17:30:26 Test Item Value Reference Range Interpretation Comments Basophils # (test code 0.1 See_Comment N [Aut omated message] The = Basophils #) system which generated this result tra nsmitted reference range : <=0.2. The reference r jennifer was not used to int erpret this result as normal/abnormal . [facility] CenterXynaitvEQQCYPUIVK3460-04-65 17:30:26 Test Item Value Reference Range Interpretation Comments MPV (test code = MPV) 7.4 7.4-10.[address] [facility] CenterXbttpswFUFGDTGSEW0554-28-45 17:30:26 Test Item Value Reference Range Interpretation Comments MCV (test code = MCV) 93.2 81.0-99.[address] [facility] CenterErltzjoLASFTPQHRF2639-72-75 17:30:26 Test Item Value Reference Range Interpretation Comments Hct (test code = Hct) 36.7 36.0-48.[address] [facility] CenterFnyjtmgEZURDZWDIQ4511-87-34 17:30:26 Test Item Value Reference Range Interpretation Comments Platelet (test code = Platelet) 574 133-450 [address] [place] [id number] 17:30:26 Test Item Value Reference Range Interpretation Comments MCH (test code = MCH) 31.5 pg 27.0-31.[address] [facility] CenterOodwjhnBKMBJOJEZY2680-56-39 17:30:26 Test Item Value Reference Range Interpretation Comments MCHC (test code = MCHC) 33.8 32.0-36.[address] [facility] CenterEveagtdUHBALIFECU6716-07-35 17:30:26 Test Item Value Reference Range Interpretation Comments RDW (test code = RDW) 13.6 11.5-14.[address] [facility] CenterCtfcpouFWBRPHEAJZ4136-85-33 17:30:26 Test Item Value Reference Range Interpretation Comments Hgb (test code = Hgb) 12.4 12.0-16.[address] [facility] CenterShswsvpBSBIACQTZH8283-52-88 17:30:26 Test Item Value Reference Range Interpretation Comments RBC (test code = RBC) 3.93 4.20-5.[address] [facility] CenterNznzakhCCMZSYRMYG2962-20-61 17:30:26 Test Item Value Reference Range Interpretation Comments WBC (test code = WBC) 10.0 3.7-10.4 N [facility]
[2022-05-14] MEDS ORDERED: IBUPROFEN 200 MG TAB PO ONE ×2 (18:36→20:02)
[2022-05-14] MEDS ORDERED: IBUPROFEN 400 MG TAB ONE (20:02)
--- NOTE | 2022-05-14 20:09 | RAD REPORT ---
EXAM DESCRIPTION: Rosana Single View05/14/2022 7:29 pm CLINICAL HISTORY: Cough COMPARISON: none FINDINGS: Interstitial pattern is mildly prominent bilaterally The heart is normal size IMPRESSION: Mild prominence of the interstitial pattern may indicate pneumonitis or viral pneumonia
[2022-05-14 20:30] LABS: Absolute Lymphocytes (CBC) 1.9 K/uL (0.7-4.9); Hematocrit 34.6 % (36.0-45.0); Lymphocytes % 14.3 % (15.3-44.8); MCV 93.1 fL (80-100); MPV 7.2 fL (7.6-11.3); RBC Red Blood Cell Count 3.72 M/uL (3.86-4.86)
[2022-05-14 20:34] LABS: Protime INR 0.96
[2022-05-14 20:44] LABS: Albumin 3.7 g/dL (3.4-5.0); Bilirubin Total 0.3 mg/dL (0.2-1.0); Potassium 3.7 mmol/L (3.5-5.1); Protein, Total 7.1 g/dL (6.4-8.2)
--- NOTE | 2022-05-14 22:00 | EDPHYS ---
Physician Documentation [facility] Name: Selina Toussaint Age: 67 yrs Sex: Female : 1955 Arrival Date: 05/14/2022 Time: 18:13 Bed 28 Private MD: ED Physician Deon Parekh HPI: 05/15 00:04 This 67 yrs old Female presents to ER via Wheelchair with complaints of kb Chemical Exposure. 00:04 The patient or guardian reports cough, that is intermittent, described as mild, flu kb symptoms, low-grade fever, myalgias. Onset: The symptoms/episode began/occurred this morning. Severity of symptoms: At their worst the symptoms were moderate, in the emergency department the symptoms are unchanged. Modifying factors: The symptoms are alleviated by nothing, the symptoms are aggravated by nothing. Associated signs and symptoms: Pertinent positives: fever, rhinorrhea. The patient has not experienced similar symptoms in the past. The patient has not recently seen a physician. Pt states she sprayed outdoor pickle cutter her room last night because she saw a lady bug. States she went to bed afterwards with her door shut. She woke up this morning with cough, congestion, shortness of breath, fever, chills. Historical: - Allergies: 05/14 18:27 Vicodin; tp1 18:27 Tylenol; tp1 - Home Meds: 18:27 Aspirin Oral [Active]; lisinopril Oral [Active]; Metformin Oral [Active]; Glimepiride tp1 Oral [Active]; atorvastatin Oral [Active]; amitriptyline 25 mg Oral tab 1 tab once daily [Active]; - PMHx: 18:27 Diabetes - NIDDM; Hyperlipidemia; Hypertension; Vertigo; tp1 - PSHx: 18:27 None; tp1 - Immunization history:: Client reports receiving the 2nd dose of the Covid vaccine. - Social history:: Smoking status: Patient reports the use of cigarette tobacco products, a pack a week. ROS: 05/15 00:03 Abdomen/GI: Negative for abdominal pain, nausea, vomiting, diarrhea, and constipation. kb Constitutional: Positive for chills, fatigue, fever, malaise. ENT: Positive for rhinorrhea, sinus congestion. Respiratory: Positive for cough, shortness of breath. Neuro: Positive for headache. All other systems are negative. Exam: 00:03 Head/Face: Normocephalic, atraumatic. ENT: Moist Mucous membranes Cardiovascular: kb Regular rate and rhythm with a normal S1 and S2. No gallops, murmurs, or rubs. No pulse deficits. Respiratory: Respirations even and unlabored. No increased work of breathing. Talking in full sentences Abdomen/GI: Soft, non-tender. No distention Skin: Warm, dry with normal turgor. Normal color. MS/ Extremity: Pulses equal, no cyanosis. Neurovascular intact. Full, normal range of motion. Neuro: Awake and alert, GCS 15, oriented to person, place, time, and situation. Moves all extremities. Normal gait. Psych: Awake, alert, with orientation to person, place and time. Behavior, mood, and affect are within normal limits. 00:03 Constitutional: The patient appears alert, awake, obviously ill. 00:06 ECG was reviewed by the Attending Physician. kb Vital Signs: 05/14 18:22 BP 136 / 117; Pulse 100; Resp 22; Temp 102.9(TE); Pulse Ox 100% ; tp1 20:23 BP 129 / 60; Pulse 73; Resp 21 S; Temp 98.6(O); Pulse Ox 96% on R/A; as6 21:45 BP 134 / 56; Pulse 89; Resp 18 S; Pulse Ox 99% on R/A; as6 21:53 Temp 98.2(O); as6 09 01:05 Weight 56.7 kg (R); pv MDM: 05/14 18:28 Patient medically screened. kb 23:39 Data reviewed: vital signs, nurses notes. Data interpreted: Pulse oximetry: on room air kb is 99 %. Interpretation: normal. 05/15 00:03 Counseling: I had a detailed discussion with the patient and/or guardian regarding: the kb historical points, exam findings, and any diagnostic results supporting the discharge/admit diagnosis, lab results, radiology results, the need for further work-up and treatment in the hospital. Physician consultation: Terry ROSALES regarding admission, to the telemetry unit. patient's condition, and will see patient in ED. 01:16 ED course: Sepsis reevaluation complete. . rn 05/14 18:28 Order name: Blood Culture Adult (2) kb 05/14 18:28 Order name: CBC with Diff; Complete Time: 21:22 kb 05/14 18:28 Order name: CMP; Complete Time: 21:22 kb 05/14 18:28 Order name: Lactate; Complete Time: 21:22 kb 05/14 18:28 Order name: Protime (+inr); Complete Time: 20:39 kb 05/14 18:28 Order name: Ptt, Activated; Complete Time: 20:39 kb 05/14 18:28 Order name: Flu; Complete Time: 19:12 kb 05/14 18:28 Order name: COVID-19 SARS RT PCR (Document "Date of Onset" if Symptomatic); Complete kb Time: 19:53 05/14 23:34 Order name: Lactate Sepsis 2 HR Follow-up; Complete Time: 23:36 EDMS 05/15 05:28 Order name: CBC with Automated Diff; Complete Time: 08:44 EDMS 05/15 07:02 Order name: Glucose, Ancillary Testing; Complete Time: 08:44 EDMS 05/15 10:01 Order name: Comprehensive Metabolic Panel EDMS 05/15 10:02 Order name: Lactate EDMS 05/15 11:45 Order name: Glucose, Ancillary Testing EDMS 05/14 18:28 Order name: Chest Single View XRAY; Complete Time: 20:09 kb 05/14 18:28 Order name: Cardiac monitoring; Complete Time: 20:23 kb 05/14 18:28 Order name: EKG - Nurse/Tech; Complete Time: 20:23 kb 05/14 18:28 Order name: IV Saline Lock - Large Bore; Complete Time: 20:23 kb 05/14 18:28 Order name: Labs collected and sent; Complete Time: 20:23 kb 05/14 18:28 Order name: O2 Per Protocol; Complete Time: 20:23 kb 05/14 18:28 Order name: O2 Sat Monitoring; Complete Time: 20:23 kb 05/14 18:28 Order name: Misc. Order: call poison control for recommendation; Complete Time: 20:24 kb EC:06 Rate is 75 beats/min. Rhythm is regular. Right axis deviation noted. CT interval is kb normal at 146 msec. QRS interval is normal at 122 msec. QT interval is normal at 457 msec. Administered Medications: 05/14 18:30 Drug: Ibuprofen 600 mg {Note: administered by previous shift .} Route: PO; as6 22:35 Follow up: Response: No adverse reaction; Temperature is decreased as6 22:30 Drug: Rocephin (cefTRIAXone) 1 grams Route: IV; Rate: calculated rate; Site: right as6 antecubital; 22:38 Drug: Zithromax (azithromycin) 500 mg Route: IVPB; Infused Over: 1 hrs; Site: right as6 antecubital; 05/15 01:15 Drug: NS 0.9% (30 ml/kg) 30 ml/kg Route: IV; Rate: bolus; Site: right antecubital; pv Disposition: 08:48 Co-signature as Attending Physician, Deon Parekh DO I agree with the assessment and ne3 plan of care. Disposition Summary: 05/14/22 21:59 Hospitalization Ordered Hospitalization Status: Observation kb Provider: Billy Daniel Condition: Stable kb Problem: new kb Symptoms: are unchanged kb Bed/Room Type: Standard Location: [facility] ER HOLD(05/15/22 14:52) [facility] Room Assignment: ERHOLD-(05/15/22 14:52) [facility] Diagnosis - Severe sepsis without septic shock kb - Pneumonia, unspecified organism kb Forms: - Medication Reconciliation Form kb - SBAR form kb Signatures: Dispatcher [employer] EDMS Lanette Mcgregor, MARTINA-C AIRCRAFT MAINTENANCE TECHNICIAN-Ckb Freddy Daniel MD MD rn Garcia, Cindy, RN RN cg Herrera, Deanna [facility] Marcus Grier RN Deon Couch DO DO ms3 Vahe Holm RN RN pv Slawson, Ashby, RN RN as6 Maria E Sanchez RN RN tp1 Corrections: (The following items were deleted from the chart) 05/14 22:59 21:59 Telemetry/MedSurg (observation) kb 22:59 21:59 kb 23:40 23:38 ED course: Septic shock criteria met at 2334 due to lactate of 4.0. 30ml/kg of NS kb ordered.. kb 05/15 14:21 05/14 22:59 [facility] ER HOLD [facility] 05/15 14:21 05/14 22:59 ERHOLD- [facility] 05/15 14:52 14:21 Telemetry/MedSurg (observation) ja1 dh3 14:52 14:21 408 ja1 dh3
--- NOTE | 2022-05-14 22:00 | ER ---
Nurse's Notes [facility] Name: Selina Toussaint Age: 67 yrs Sex: Female : 1955 Arrival Date: 05/14/2022 Time: 18:13 Bed 28 Private MD: Diagnosis: Severe sepsis without septic shock;Pneumonia, unspecified organism Presentation: 05/14 18:22 Chief complaint: Patient states: slept in bedroom after spraying outdoor fogger in tp1 bedroom with door closed. reports cough, chills, congestion. Coronavirus screen: Vaccine status: Patient reports receiving the 2nd dose of the covid vaccine. Ebola Screen: Patient negative for fever greater than or equal to 101.5 degrees Fahrenheit, and additional compatible Ebola Virus Disease symptoms Patient denies exposure to infectious person. Patient denies travel to an Ebola-affected area in the 21 days before illness onset. Initial Sepsis Screen:. Initial Sepsis Screen: Does the patient meet any 2 criteria? No. Patient's initial sepsis screen is negative. Does the patient have a suspected source of infection? No. Patient's initial sepsis screen is negative. Risk Assessment: Do you want to hurt yourself or someone else? Patient reports no desire to harm self or others. Onset of symptoms was May 14, 2022. 18:22 Method Of Arrival: Wheelchair tp1 18:30 Acuity: TAYE 3 tp1 Triage Assessment: 18:27 General: Appears distressed, uncomfortable, Behavior is anxious. Pain: Complains of tp1 pain in throat and back. Neuro: Level of Consciousness is awake, alert, obeys commands, Oriented to person, place, time, situation. Respiratory: Reports shortness of breath cough that is Airway is patent Respiratory effort is even, unlabored. Historical: - Allergies: 18:27 Vicodin; tp1 18:27 Tylenol; tp1 - Home Meds: 18:27 Aspirin Oral [Active]; lisinopril Oral [Active]; Metformin Oral [Active]; Glimepiride tp1 Oral [Active]; atorvastatin Oral [Active]; amitriptyline 25 mg Oral tab 1 tab once daily [Active]; - PMHx: 18:27 Diabetes - NIDDM; Hyperlipidemia; Hypertension; Vertigo; tp1 - PSHx: 18:27 None; tp1 - Immunization history:: Client reports receiving the 2nd dose of the Covid vaccine. - Social history:: Smoking status: Patient reports the use of cigarette tobacco products, a pack a week. Screenin:24 Abuse screen: Denies threats or abuse. Denies injuries from another. Nutritional as6 screening: No deficits noted. Tuberculosis screening: No symptoms or risk factors identified. Fall Risk None identified. Assessment: 18:38 Reassessment: spoke to [employer] control. was instructed to do supportive care. case # tp1 [id number]. provider notified. Vital Signs: 18:22 BP 136 / 117; Pulse 100; Resp 22; Temp 102.9(TE); Pulse Ox 100% ; tp1 20:23 BP 129 / 60; Pulse 73; Resp 21 S; Temp 98.6(O); Pulse Ox 96% on R/A; as6 21:45 BP 134 / 56; Pulse 89; Resp 18 S; Pulse Ox 99% on R/A; as6 21:53 Temp 98.2(O); as6 05/15 01:05 Weight 56.7 kg (R); pv ED Course: 05/14 18:13 Patient arrived in ED. rg4 18:13 [facility]greg[facility]C [facility] kb 18:13 Deon Parekh DO is Attending Physician. kb 18:27 Arm band placed on. tp1 18:30 Triage completed. tp1 19:31 Chest Single View XRAY In Process Unspecified. EDMS 19:39 Garret Villatoro, RADHA is Primary Nurse. as6 20:00 Inserted saline lock: 20 gauge in right antecubital area, using aseptic technique. as6 Blood collected. 20:25 Bed in low position. Call light in reach. Side rails up X 1. Adult w/ patient. Client as6 placed on continuous cardiac and pulse oximetry monitoring. NIBP monitoring applied. 21:59 Billy Daniel MD is Hospitalizing Provider. kb Administered Medications: 18:30 Drug: Ibuprofen 600 mg {Note: administered by previous shift .} Route: PO; as6 22:35 Follow up: Response: No adverse reaction; Temperature is decreased as6 22:30 Drug: Rocephin (cefTRIAXone) 1 grams Route: IV; Rate: calculated rate; Site: right as6 antecubital; 22:38 Drug: Zithromax (azithromycin) 500 mg Route: IVPB; Infused Over: 1 hrs; Site: right as6 antecubital; 05/15 01:15 Drug: NS 0.9% (30 ml/kg) 30 ml/kg Route: IV; Rate: bolus; Site: right antecubital; pv Medication: 05/14 21:46 VIS not applicable for this client. as6 Outcome: 21:59 Decision to Hospitalize by Provider. 05/15 15:35 Patient left the ED. 3 Signatures: Dispatcher [employer] EDMS Lanette Mcgregor, RUPERTC ENTERPRISE ARCHITECT MANAGER-Yeny Ellis Nora Kumari 3 Vahe Holm RN RN Garret Elizabeth RN RN as6 Maria E Sanchez, RADHA RN tp1 Corrections: (The following items were deleted from the chart) 05/14 18:30 18:22 BP 136 / 117; Pulse 100bpm; Pulse Ox 100%; Temp 102.9F Temporal; tp1 tp1 18:40 18:38 Reassessment: spoke to poison control. was instructed to do supportive care. case tp1 # [id number] tp1
[2022-05-14] MEDS ORDERED: AZITHROMYCIN 500 MG INJ IVPB ONE (22:14)
[2022-05-14] MEDS ORDERED: CEFTRIAXONE 1000 MG/VIAL ONE (22:14)
[2022-05-14] MEDS ORDERED: NA CHLORIDE 0.9% 50 ML ONE (22:14)
[2022-05-14] MEDS ORDERED: NA CHLORIDE 0.9% 250 ML ONE (22:14)
--- NOTE | 2022-05-14 23:07 | P.HP ---
Certification for Inpatient Patient admitted to: Inpatient With expected LOS: >2 Midnights Patient will require the following post-hospital care: None Practitioner: I am a practitioner with admitting privileges, knowledge of patient current condition, hospital course, and medical plan of care. Services: Services provided to patient in accordance with Admission requirements found in Title 42 Section 412.3 of the Code of Federal Regulations Patient History Date of Service: 05/14/22 History of Present Illness: 67-year-old female with history of eir-lnuetde-xvduszkhc diabetes, hypertension, hyperlipidemia and PAD presents the emergency department for fever, chills, cough/congestion/shortness of breath. She reports that last night before going to bed she sprayed a chemical "cutter" around her room to kill bugs and when she woke up she felt congested throughout the day she began to have chills/fevers. She was evaluated in the emergency department her labs were significant for leukocytosis, mild lactic acidosis, she was initially febrile and tachycardic meeting criteria for severe sepsis with a source of suspected pneumonia, her chest x-ray showed mild prominence of the interstitial pattern may indicate pneumonitis or viral pneumonia. Patient was treated with antibiotics Rocephin/Zithromax ED prior wishes to admit for further evaluation and management of severe sepsis/pneumonia. Allergies hydrocodone bitartrate [From Vicodin] Allergy (Verified 12/25/17 03:50) ants crawling on her Home Medications: Aspirin [Aspirin EC 81 MG] 81 mg PO DAILY 07/17/17 Atorvastatin Calcium [Lipitor*] 10 mg PO DAILY #30 tab 07/18/17 Meclizine HCl [Antivert*] 25 mg PO Q6H PRN #30 tab 07/18/17 lisinopriL [Prinivil*] 5 mg PO DAILY #30 tab 07/18/17 Glimepiride 2 mg PO DAILY 12/25/17 Metformin HCl [Glucophage*] 1,000 mg PO BID 12/25/17 Sulfamethoxazole/Trimethoprim [Bactrim Ds Tablet] 1 each PO BID 14 Days #28 tablet 12/26/17 dexAMETHasone [Decadron*] 40 mg PO DAILY 2 Days tab 12/27/17 - Past Medical/Surgical History Diabetic: Yes -: HTN -: NIDDM -: CVA with right-sided residual weakness -: Carotid artery disease status post endarterectomy -: Hyperlipidemia -: Vertigo -: left arm surgery -: Left CEA -: Right leg bypass surgery - Family History Father -: Heart disease Sister -: Heart disease Brother -: Heart disease Mother -: Heart disease, Diabetes - Social History Smoking Status: Current every day smoker Alcohol use: Yes CD- Drugs: No Caffeine use: Yes Place of Residence: Home Review of Systems 10-point ROS is otherwise unremarkable General: Fever, Chills Respiratory: Cough, Shortness of Breath, Sputum Physical Examination - Physical Exam General: Alert, In no apparent distress HEENT: Atraumatic, PERRLA, Mucous membr. moist/pink, EOMI, Sclerae nonicteric Neck: Supple, 2+ carotid pulse no bruit, No LAD, Without JVD or thyroid abnormality Respiratory: Clear to auscultation bilaterally, Diminished Cardiovascular: Regular rate/rhythm, Normal S1 S2 Gastrointestinal: Normal bowel sounds, No tenderness Musculoskeletal: No tenderness Integumentary: No rashes Neurological: Normal speech, Normal strength at 5/5 x4 extr, Normal tone, Normal affect - Studies Laboratory Data (last 24 hrs) 05/14/22 20:10: PT 10.6, INR 0.96, APTT 28.7 05/14/22 20:10: Sodium 137, Potassium 3.7, BUN 10, Creatinine 0.79, Glucose 70 L, Total Bilirubin 0.3, AST 9 L, ALT 15, Alkaline Phosphatase 78 05/14/22 20:10: WBC 13.20 H, Hgb 11.6 L, Hct 34.6 L, Plt Count 463 H Microbiology Data (last 24 hrs): 05/14/22 18:31 Nasopharnyx Influenza Type A Antigen Screen - Final 05/14/22 18:31 Nasopharnyx Influenza Type B Antigen Screen - Final Assessment and Plan - Plan Assessment: Severe sepsis secondary to pneumonia Diabetes mellitus type [id number]-[id number] Hypertension Hyperlipidemia PAD Plan: Severe sepsis secondary to pneumonia: Meets criteria for sepsis given fever, leukocytosis, tachycardia with sourcesuspected pneumonia and severe sepsis given lactate greater than 2. Covered with antibiotics Rocephin/Zithromax blood cultures were obtained. Possibly related to viral infection although COVID/influenza negative pneumonitis also possibly contributing given recent chemical exposure. We will continue IV antibiotics, monitor results. Diabetes mellitus type [id number]: ACHS Accu-Chek, sliding scale insulin. Hypertension: Continue home medications once verified Hyperlipidemia: Continue home medications once verified PAD: Continue home medications once verified DVT PPX: Lovenox Code status: Full Discharge Plan: Home Plan to discharge in: 48 Hours - Advance Directives Does patient have a Living Will: No Does patient have a Durable POA for Healthcare: No - Code Status/Comfort Care Code Status Assessed: Yes (Full code) Critical Care: No Time Spent Managing Pts Care (In Minutes): 70
[2022-05-14] MEDS ORDERED: ACETAMINOPHEN 500 MG TAB PO PRN (23:09)
[2022-05-14] MEDS ORDERED: ONDANSETRON 4 MG/2 ML VIAL IV PRN (23:09)
[2022-05-14] MEDS ORDERED: ALBUTEROL 2.5 MG/3 ML NEB SOL NEB PRN (23:09)
[2022-05-14] MEDS ORDERED: OXYMETAZOLINE HCL 0.05% 15ML NAS PRN (23:13)
[2022-05-15] MEDS ORDERED: NA CHLORIDE 0.9% 1,000 ML ONE (01:20)
[2022-05-15 01:31] VITALS: BMI 23.6
[2022-05-15] MEDS: BENZONATATE 100 MG CAP PO PRN ×2 (01:38→07:59)
[2022-05-15] MEDS ORDERED: BENZONATATE 100 MG CAP PO ONE ×3 (01:42→08:08)
[2022-05-15 05:21] LABS: Absolute Lymphocytes (CBC) 1.4 K/uL (0.7-4.9); Hematocrit 31.4 % (36.0-45.0); MCV 92.9 fL (80-100); MPV 7.2 fL (7.6-11.3); RBC Red Blood Cell Count 3.38 M/uL (3.86-4.86)
[2022-05-15] MEDS: INSULIN -REGULAR HUMAN 50 UNIT/0.5 ML ML SQ SCH ×2 (07:30→11:30)
[2022-05-15] MEDS ORDERED: INSULIN -REGULAR HUMAN 50 UNIT/0.5 ML ML ONE (07:59)
[2022-05-15] MEDS ORDERED: ENOXAPARIN 40 MG/0.4 ML SQ ONE (07:59)
[2022-05-15] MEDS ORDERED: ENOXAPARIN 40 MG/0.4 ML SQ SCH (09:00)
[2022-05-15 09:59] LABS: Albumin 3.2 g/dL (3.4-5.0); Bilirubin Total 0.3 mg/dL (0.2-1.0); Potassium 3.8 mmol/L (3.5-5.1); Protein, Total 6.7 g/dL (6.4-8.2)
--- NOTE | 2022-05-15 12:31 | P.CNS ---
Date of Consult: 05/15/22 Reason for Consult: Possible pneumonia Chief Complaint: Shortness of breath History of Present Illness: Patient is 67 years of age and he was doing well got exposure to mosquito being spray and became more short of breath having some chills fever prior history of cardiopulmonary disorder apparently this happened in the close room. Patient is not better since admission still short of breath Allergies acetaminophen [From Tylenol] Allergy (Verified 05/15/22 07:04) Hives hydrocodone bitartrate [From Vicodin] Allergy (Verified 12/25/17 03:50) ants crawling on her Home Medications: Aspirin [Aspirin EC 81 MG] 81 mg PO DAILY 07/17/17 Atorvastatin Calcium [Lipitor*] 10 mg PO DAILY #30 tab 07/18/17 Meclizine HCl [Antivert*] 25 mg PO Q6H PRN #30 tab 07/18/17 lisinopriL [Prinivil*] 5 mg PO DAILY #30 tab 07/18/17 Glimepiride 2 mg PO DAILY 12/25/17 Metformin HCl [Glucophage*] 1,000 mg PO BID 12/25/17 Sulfamethoxazole/Trimethoprim [Bactrim Ds Tablet] 1 each PO BID 14 Days #28 tablet 12/26/17 dexAMETHasone [Decadron*] 40 mg PO DAILY 2 Days tab 12/27/17 - Past Medical/Surgical History Diabetic: Yes -: HTN -: NIDDM -: CVA with right-sided residual weakness -: Carotid artery disease status post endarterectomy -: Hyperlipidemia -: Vertigo -: left arm surgery -: Left CEA -: Right leg bypass surgery - Family History Father Medical History: Heart disease Sister Medical History: Heart disease Brother Medical History: Heart disease Mother Medical History: Heart disease, Diabetes - Social History Smoking Status: Current some day smoker Alcohol use: Yes CD- Drugs: No Caffeine use: Yes Place of Residence: Home Review of Systems Respiratory: Cough, Shortness of Breath Physical Examination Temp Pulse Resp BP Pulse Ox 98.1 F 82 19 142/56 H 98 05/15/22 07:23 05/15/22 07:23 05/15/22 07:23 05/15/22 07:23 05/15/22 07:23 General: Alert, Oriented x3 Neck: Supple Respiratory: Clear to auscultation bilaterally Cardiovascular: No edema, Regular rate/rhythm, Normal S1 S2 Gastrointestinal: Normal bowel sounds, Soft and benign Laboratory Data (last 24 hrs) 05/14/22 20:10: PT 10.6, INR 0.96, APTT 28.7 05/14/22 20:10: Sodium 137, Potassium 3.7, BUN 10, Creatinine 0.79, Glucose 70 L, Total Bilirubin 0.3, AST 9 L, ALT 15, Alkaline Phosphatase 78 05/14/22 20:10: WBC 13.20 H, Hgb 11.6 L, Hct 34.6 L, Plt Count 463 H - Problems (1) Pneumonitis due to fumes Current Visit: Yes Status: Acute Plan: Patient is 67 years of age admitted with presumed chemical pneumonitis she was exposed to Reggie mosquito spray in a closed environment became acutely short of breath chest x-ray shows some mild interstitial changes labs reviewed white count is mildly elevated patient is hemodynamically stable vital signs stable oxygen satisfactory plan to discharge home on some prednisone milligrams twice a day for a week and add in Zithromax follow-up with me in 2 weeks blood pressure mildly elevated resume home medications
--- NOTE | 2022-05-15 13:56 | EKG ---
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
[2022-05-15] MEDS ORDERED: ALBUTEROL 2.5 MG/3 ML NEB SOL NEB PRN (16:00)
[2022-05-15 16:30] VITALS: BP 134/56; O2SAT 99
[2022-05-15 16:32] VITALS: TEMP 98.2
[2022-05-15] MEDS ORDERED: AZITHROMYCIN IV 500 MG in NA CHLORIDE 0.9% 250 ML IVPB SCH (20:00)
--- NOTE | 2022-05-15 20:32 | P.DS ---
Admission Date: 05/14/22 Discharge Date: 05/15/22 Disposition: ROUTINE DISCHARGE Reason for Admission: Shortness of breath Consultations: Pulmonology - Dr. Mancini Brief History of Present Illness: 67-year-old female with history of efh-xbnlklw-yhmzrsohc diabetes, hypertension, hyperlipidemia and PAD presents the emergency department for fever, chills, cough/congestion/shortness of breath. She reports that last night before going to bed she sprayed a chemical "cutter" around her room to kill bugs and when she woke up she felt congested throughout the day she began to have chills/fevers. She was evaluated in the emergency department her labs were significant for leukocytosis, mild lactic acidosis, she was initially febrile and tachycardic meeting criteria for severe sepsis with a source of suspected pneumonia, her chest x-ray showed mild prominence of the interstitial pattern may indicate pneumonitis or viral pneumonia. Patient was treated with antibiotics Rocephin/Zithromax ED prior wishes to admit for further evaluation and management of possible severe sepsis/pneumonia. Hospital Course: Problem List chemical pneumonitis, reaction to inhaled insecticide fumes sepsis ruled out Diabetes mellitus type [id number]-damtgrqca Hypertension Hyperlipidemia PAD Patient presented with cough, shortness of breath, fever, runny nose / congestion after sleeping in room where she sprayed cutter insecticide. Patient met sepsis criteria with her vital signs and mildly elevated white blood cell count. Chest x-ray was read as mild interstitial prominence. Pulmonology was consulted and agreed this was likely reaction the insecticide exposure. Dr. Mancini did not feel there was any pneumonia on chest x-ray. Possibly some pneumonitis from the exposure. Patient had improvement of her symptoms, bloodwork, and remained afebrile. She was deemed stable for discharge home with prednisone and azithromycin. Recommended to air out the room and not sleep in the same room for a few days. Follow up: PCP within [address] Mancini in ~1 week. Vital Signs/Physical Exam: Temp Pulse Resp BP Pulse Ox 98.2 F 89 18 134/56 L 97 05/15/22 16:31 05/15/22 16:29 05/15/22 16:29 05/15/22 16:29 05/15/22 12:00 General: Alert, In no apparent distress, Oriented x3 HEENT: EOMI, Sclerae nonicteric Neck: Supple, No LAD Respiratory: Clear to auscultation bilaterally, Normal air movement, Other (dry cough) Cardiovascular: No edema, Regular rate/rhythm Gastrointestinal: Soft and benign, Non-distended, No tenderness Musculoskeletal: No contractures, No tenderness Integumentary: No rashes, No significant lesion Neurological: Normal speech, Normal strength at 5/5 x4 extr, Normal affect Laboratory Data at Discharge: WBC 11.00 K/uL (4.3-10.9) H D 05/15/22 05:06 Hgb 10.7 g/dL (12.0-15.0) L 05/15/22 05:06 Hct 31.4 % (36.0-45.0) L 05/15/22 05:06 Plt Count 417 K/uL (152-406) H 05/15/22 05:06 PT 10.6 SECONDS (9.5-12.5) 05/14/22 20:10 INR 0.96 05/14/22 20:10 APTT 28.7 SECONDS (24.3-36.9) 05/14/22 20:10 Sodium 138 mmol/L (136-145) 05/15/22 09:33 Potassium 3.8 mmol/L (3.5-5.1) 05/15/22 09:33 BUN 7 mg/dL (7-18) 05/15/22 09:33 Creatinine 0.78 mg/dL (0.55-1.3) 05/15/22 09:33 Glucose 214 mg/dL (74-106) H 05/15/22 09:33 Total Bilirubin 0.3 mg/dL (0.2-1.0) 05/15/22 09:33 AST 12 U/L (15-37) L 05/15/22 09:33 ALT 14 U/L (12-78) 05/15/22 09:33 Alkaline Phosphatase 74 U/L (45-117) 05/15/22 09:33 Home Medications: Aspirin [Aspirin EC 81 MG] 81 mg PO DAILY 07/17/17 Atorvastatin Calcium [Lipitor*] 10 mg PO DAILY #30 tab 07/18/17 Meclizine HCl [Antivert*] 25 mg PO Q6H PRN #30 tab 07/18/17 lisinopriL [Prinivil*] 5 mg PO DAILY #30 tab 07/18/17 Glimepiride 2 mg PO DAILY 12/25/17 Metformin HCl [Glucophage*] 1,000 mg PO BID 12/25/17 Azithromycin Tab [Zithromax*] 250 mg PO DAILY 4 Days #4 tab 05/15/22 Benzonatate [Tessalon [place]*] 100 mg PO TID PRN 5 Days #15 cap 05/15/22 Fluticasone [Flonase 50MCG Nasal [place]*] 2 sprays FELI DAILY btl 05/15/22 predniSONE [Deltasone] 20 mg PO DAILY 5 Days #5 tab 05/15/22 New Medications: predniSONE [Deltasone] 20 mg PO DAILY 5 Days #5 tab Benzonatate [Tessalon Perle*] 100 mg PO TID PRN 5 Days #15 cap PRN Reason: Cough Azithromycin Tab [Zithromax*] 250 mg PO DAILY 4 Days #4 tab Physician Discharge Instructions: Patient presented with cough, shortness of breath, fever, runny nose / congestion after sleeping in room where she sprayed cutter insecticide. Patient met sepsis criteria with her vital signs and mildly elevated white blood cell count. Chest x-ray was read as mild interstitial prominence. Pulmonology was consulted and agreed this was likely reaction the insecticide exposure. Dr. Mancini did not feel there was any pneumonia on chest x-ray. Possibly some pneumonitis from the exposure. Patient had improvement of her symptoms, bloodwork, and remained afebrile. She was deemed stable for discharge home with prednisone and azithromycin. Recommended to air out the room and not sleep in the same room for a few days. Follow up: PCP within [address] Mancini in ~1 week. Followup: NONE,NONE [Primary Care Provider] - Time spent managing pt's care (in minutes): 45
[2022-05-15] MEDS ORDERED: CEFTRIAXONE 1,000 MG in NA CHLORIDE 0.9% 50 ML IVPB SCH (21:00)
[2022-05-16] MEDS ORDERED: FLUTICASONE 50MCG NASAL SPRAY NAS SCH (09:00)
== END 2022-05-15 15:35 | disposition home or self-care (01) | DRG 918 ==
LOC: ER 18:12 → ERHOLD 22:52
PROVIDERS: ADMIT Hospitalist; ATTEND Hospitalist
DX: T60.2X1A Toxic effect of other insecticides, accidental (unintentional), initial encounter (principal); J68.0 Bronchitis and pneumonitis due to chemicals, gases, fumes and vapors; Y92.009 Unspecified place in unspecified non-institutional (private) residence as the place of occurrence of the external cause; E11.9 Type 2 diabetes mellitus without complications; I10 Essential (primary) hypertension; E78.5 Hyperlipidemia, unspecified; I73.9 Peripheral vascular disease, unspecified; F17.210 Nicotine dependence, cigarettes, uncomplicated; Z86.73 Personal history of transient ischemic attack (TIA), and cerebral infarction without residual deficits; Z20.822 Contact with and (suspected) exposure to COVID-19
CPT/HCPCS: 36415; 71045; 80053; 82947; 83605; 85025; 85610; 85730; 87040; 87804; 93005; 94010; 96374; 96375; 99284; J0456; J1650; J1815; J7030; J7050; U0003